=== PATIENT | female | born 1955 | race Caucasian/White ===

== ENCOUNTER → 2017-01-29 | Outpatient (CLI) | payer OTHER ==
--- NOTE | 2017-01-29 09:26 | WWHP ---
DATE OF SERVICE: 01/29/2017 CHIEF COMPLAINT: The patient is here for her routine gynecologic exam and mammogram. HPI: This is a 61-year-old, G2, P2 with an LMP of 1993 and she is status post DIAMOND for benign reasons. The patient is without gynecologic complaints. PAST MEDICAL HISTORY: COPD and osteopenia. MEDICATIONS: 1. Spiriva inhalers daily. 2. Symbicort inhaler daily. 3. Xopenex generic inhaler p.r.n. 4. Calcium supplement b.i.d. 5. Multivitamin daily. ALLERGIES: No known drug allergies. Past surgical history is unchanged from the 2015 H&P. 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 SOCIAL HISTORY: She quit smoking in 1998 and she rarely drinks alcohol. She denies drug use. 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 REVIEW OF SYSTEMS: She gained 7 pounds over the last year. She denies respiratory or cardiac problems. GI: She has been having some problems with her gallbladder and is going to be seeing Dr. Shipley in the near future for this. PHYSICAL EXAM: Blood pressure 132/83. Height 5 feet 6-1/2 inches. Weight 163 pounds. Temperature 97.8, pulse 80. This is a well-developed, well-nourished white female who is alert and oriented x3 in no acute distress. HEENT is within normal limits. NECK: Supple without mass or thyromegaly. CHEST AND LUNGS: Clear to auscultation. HEART: Regular rate and rhythm. Breasts are without mass or discharge. Axillary exam is negative for adenopathy. BACK: Negative for CVA tenderness. ABDOMEN: Soft, nontender, without palpable masses. PELVIC EXAM: External genitalia reveals mild atrophy without lesions. Vagina reveals mild atrophy without lesions. There is no evidence of prolapse. Bimanual exam is negative for mass or tenderness. Rectovaginal exam is negative for mass or tenderness and is negative for occult blood. EXTREMITIES: Nontender. IMPRESSION: A 61-year-old menopausal female, status post total abdominal hysterectomy for benign reasons with normal gynecologic exam. PLAN: 1. Pap smears have been discontinued. 2. Self breast examination was discussed. 3. Mammogram will be done today. 4. Osteoporosis prevention was discussed. We will plan on repeating a bone density testing next year. 5. She is due for colonoscopy and she states she will talk to Dr. Shipley about this. 6. She will return in one year.
--- NOTE | 2017-01-30 09:56 | MM ---
Reason for exam: screening (asymptomatic). Last mammogram was performed 1 year ago. History: Patient is postmenopausal. Family history of premenopausal breast cancer in mother and breast cancer in aunt. Benign core biopsy, September 15, 1997. Benign stereotactic core biopsy of the left breast, September 15, 1997. Physical Findings: A clinical breast exam by your physician is recommended on an annual basis and results should be correlated with mammographic findings. MG Screening Mammo w CAD Bilateral CC and MLO view(s) were taken. Prior study comparison: January 16, 2016, bilateral MG 3d screening mammo w/cad. January 03, 2015, bilateral MG screening mammo w CAD. There are scattered fibroglandular densities. There is no discrete abnormality. No significant changes when compared with prior studies. ASSESSMENT: Negative, BI-RAD 1 RECOMMENDATION: Routine screening mammogram of both breasts in 1 year.
== END | disposition home or self-care (01) ==
LOC: WWCWWP 07:48
PROVIDERS: ATTEND Obstetrics & Gynecology
DX: Z12.31 Encounter for screening mammogram for malignant neoplasm of breast (principal)

== ENCOUNTER → 2017-02-14 | Outpatient (CLI) | payer OTHER ==
--- NOTE | 2017-02-14 09:07 | NM ---
EXAMINATION TYPE: NM hepatobiliary w EF DATE OF EXAM: 02/14/2017 COMPARISON: NONE HISTORY: Calculus of gallbladder per order. Epigastric pain with diminished appetite, heartburn, and reflux-like symptoms. TECHNIQUE: After the intravenous administration of 5.5 mCi Tc 99m Mebrofenin hepatobiliary scintigrap hy is performed. Immediate images post injection. FINDINGS: There is satisfactory initial accumulation of tracer by the liver. The gallbladder is visualized wit hin 40 minutes. The small bowel activity is noted within 30 minutes. At one hour 8 ounces of oral e nsure plus is given to mimic CCK and gallbladder ejection fraction is calculated at 81 %, not deviate d from the normal range. Therefore there is no scintigraphic evidence of cystic or common bile duct obstruction to suggest acute cholecystitis or gallbladder dyskinesia. IMPRESSION: Exam is within normal limits.
== END | disposition home or self-care (01) ==
LOC: RADNMMAIN 06:40
PROVIDERS: ATTEND Family Medicine
DX: K80.20 Calculus of gallbladder without cholecystitis without obstruction (principal)
CPT/HCPCS: 78226; A9537

== ENCOUNTER → 2017-03-21 | Outpatient (CLI) | payer OTHER ==
[2017-03-21 10:14] LABS: CH 31.3; HCT 40.9 % (34.0-46.0); HDW 2.84; HGB 14.9 gm/dL (11.4-16.0); MCH 32.7 pg (25.0-35.0); MCHC 36.4 g/dL (31.0-37.0); MCV 89.9 fL (80.0-100.0); Mean Platelet Volume 6.8; RBC 4.54 m/uL (3.80-5.40); RDW 13.5 % (11.5-15.5); WBC 5.9 k/uL (3.8-10.6)
[2017-03-21 10:48] LABS: ALT 32 U/L (9-52); AST 45 U/L (14-36); Alkaline Phosphatase 63 U/L (38-126); Anion Gap 13 mmol/L; Blood Urea Nitrogen 10 mg/dL (7-17); Calcium 9.6 mg/dL (8.4-10.2); Carbon Dioxide 23 mmol/L (22-30); Chloride 106 mmol/L (98-107); Glucose 76 mg/dL (74-99); Non-African American GFR(MDRD) >60 (>60 ml/min/1.73 sqM); Potassium 4.5 mmol/L (3.5-5.1); Sodium 142 mmol/L (137-145); Total Bilirubin 0.7 mg/dL (0.2-1.3); Total Protein 6.6 g/dL (6.3-8.2)
== END | disposition home or self-care (01) ==
LOC: LABWHC1 08:32
PROVIDERS: ATTEND Surgery
DX: K80.10 Calculus of gallbladder with chronic cholecystitis without obstruction (principal)
CPT/HCPCS: 36415; 80053; 85027

== ENCOUNTER 2017-04-11 08:49 | Day surgery (SDC) | payer OTHER ==
--- NOTE | 2017-03-21 13:42 | P.GSHP ---
History of Present Illness H&P Date: 03/21/17 Chief Complaint: Chronic cholecystitis Patient seen in the office on 03/19. The patient has had complaints of right upper quadrant pain. She was seen in the emergency department in [place]. She was found to have gallstones. Pain was associated with lightheadedness, diaphoresis, nausea, and decreased appetite. Her symptoms are improved at this time. Labs from that ER visit are not available to me at this time. She states that she had a negative stress test at that time. Past Medical History Additional Past Medical History / Comment(s): varicose veins, arthritis, Anterior left Hip Past Anesthesia/Blood Transfusion Reactions: No Reported Reaction Medications and Allergies Home Medications Medication Instructions Recorded Confirmed Type Tiotropium [place] [Spiriva] 1 cap IH DAILY 10/25/14 10/25/14 History Warfarin [Coumadin] 7.5 mg PO ONCE 10/25/14 10/25/14 History Allergies Allergy/AdvReac Type Severity Reaction Status Date / Time No Known Allergies Allergy Verified 10/25/14 12:27 Surgical - Exam Physical exam: General: Well-developed, well-nourished HEENT: Normocephalic, sclerae nonicteric Abdomen: Nontender, nondistended Extremities: No edema Neuro: Alert and oriented Assessment and Plan (1) Chronic cholecystitis Narrative/Plan: Clinical scenario discussed with the patient. Suspect biliary colic as the etiology for her acute onset upper abdominal pain. We'll proceed with laparoscopic possible open cholecystectomy on 04/11. Risks of bleeding, infection , biloma, bile duct injury, conversion to an open procedure, postoperative diarrhea and pain were discussed. She understands and wishes to proceed. Status: Acute
[2017-04-07 13:58] VITALS: BMI 24.3
[~2017-04-11 08:49] MED LIST: DEXAMETHASONE SOD PHOSPHATE 10 MG/ML 1 ML VIAL IV ONE; HEPARIN SODIUM,PORCINE 5,000 UNIT/ML 1 ML VIAL SQ ONE; LACTATED RINGERS 1,000 ML IV SCH; LIDOCAINE 1% 20 ML VIAL (10MG/ML) FOR IV START INTRADERMA PRN; SCOPOLAMINE 1.5MG/72HR PATCH TRANSDERM ONE; ceFAZolin 2 GM in SODIUM CHLORIDE 0.9% 100 ML IVPB ONE
[2017-04-11 09:08] VITALS: RESP 16
[2017-04-11] MEDS: ONDANSETRON 4 MG/2 ML VIAL IVP ONE ×2 (09:26→11:28)
[2017-04-11] MEDS ORDERED: MIDAZOLAM 2 MG/2 ML VIAL IVP ONE (09:39)
[2017-04-11] MEDS ORDERED: BUPIVACAINE (PF) 0.25% 30 ML VIAL SQ ONE ×2 (10:13→10:40)
[2017-04-11] MEDS ORDERED: LIDOCAINE 1% INJ 10MG/ML (20 ML MDV) ONE (10:22)
[2017-04-11] MEDS ORDERED: NEOSTIGMINE 1 MG/ML 10 ML VIAL ONE (10:22)
[2017-04-11] MEDS ORDERED: PROPOFOL 10 MG/ML 20 ML VIAL IV ONE (10:22)
[2017-04-11] MEDS ORDERED: MIDAZOLAM 2 MG/2 ML VIAL ONE (10:22)
[2017-04-11] MEDS ORDERED: GLYCOPYRROLATE 0.2 MG/ML 2 ML VIAL ONE (10:22)
[2017-04-11] MEDS ORDERED: SUCCINYLCHOLINE CHLORIDE 100 MG/5 ML SYR IV ONE (10:22)
[2017-04-11] MEDS ORDERED: ROCURONIUM BROMIDE 10 MG/ML 10 ML VIAL IV ONE (10:22)
[2017-04-11] MEDS ORDERED: fentaNYL (PF) 50 MCG/ML 2 ML AMP ONE (10:22)
[2017-04-11] MEDS ORDERED: HYDROmorphone 1 MG/ML 1 ML SYRINGE IVP PRN (11:17)
[2017-04-11] MEDS ORDERED: NALOXONE 0.4 MG/ML 1 ML VIAL IV PRN (11:17)
[2017-04-11] MEDS ORDERED: HYDROcodone/APAP 5-325MG 1 EACH TAB PO PRN (11:17)
--- NOTE | 2017-04-11 11:19 | P.PCN ---
Date of Procedure: 04/11/17 Preoperative Diagnosis: Postoperative Diagnosis: Procedure(s) Performed: PREOPERATIVE DIAGNOSIS: Chronic cholecystitis POSTOPERATIVE DIAGNOSIS: Same PROCEDURE: Laparoscopic cholecystectomy SURGEON: Violetta EBL: Minimal see anesthesia record ANESTHESIA: Gen. COMPLICATIONS: None OPERATIVE PROCEDURE: The patient was brought and placed on the operating room table in the supine position. The patient was placed under general anesthesia at that time. The abdomen was prepped and draped in the usual sterile fashion. A small vertical infraumbilical incision was made. The fascia was grasped with the Ayad forceps. The fascia was retracted anteriorly. The Veress needle was advanced into the peritoneal cavity. The saline drop test was normal. Insufflation took place up to 15 mmHg. A 5 mm optical trocar was advanced and the peritoneal cavity. 2 additional 5 mm trochars were placed in the right upper quadrant under direct visualization. A 10 mm trocar was advanced into the epigastric incision site. The gallbladder was retracted superiorly and laterally. The peritoneum overlying the infundibulum was bluntly dissected. The patient's cystic duct was visualized. The junction between the cystic duct common and hepatic duct was identified. The cystic duct was then divided after placement of 3 10 mm clips on the patient's side and one on the specimen side. The cystic artery was identified and clipped as well. A small vessel was seen along the gallbladder fossa and clipped as well. The gallbladder was then removed from the liver bed using electrocautery. The gallbladder was then removed from the epigastric trocar site with an Endo Catch bag. The gallbladder fossa was irrigated with saline. There was no evidence of any bleeding or biliary drainage seen. The trochars were then removed. The fascia at the 10 millimeter site was closed using a figure-of- eight 0 Vicryl stitch with the SalbadorWilbert. The skin at all 4 sites was closed using a 4-0 Monocryl stitch. At the end of this procedure the sponge and needle counts were correct. DISPOSITION: Stable to the recovery room Implants: Indications for Procedure: Operative Findings: Description of Procedure:
[2017-04-11] MEDS: HYDROmorphone 1 MG/ML 1 ML SYRINGE IVP PRN ×2 (11:38→11:46)
[2017-04-11 11:39] VITALS: TEMP 97.4
[2017-04-11] MEDS ORDERED: ALBUTEROL NEBULIZED 2.5 MG/3 ML INHALATION STA (13:02)
[2017-04-11] MEDS ORDERED: HYDROcodone/APAP 5-325MG 1 EACH TAB PO ONE (13:18)
[2017-04-11] MEDS ORDERED: LACTATED RINGERS 1,000 ML IV ONE (14:05)
[2017-04-11 15:13] VITALS: BP 146/76; PULSE 70
== END 2017-04-11 16:27 | disposition home or self-care (01) ==
LOC: OR 08:49
PROVIDERS: ATTEND Surgery
DX: K80.10 Calculus of gallbladder with chronic cholecystitis without obstruction (principal); I83.90 Asymptomatic varicose veins of unspecified lower extremity; Z79.01 Long term (current) use of anticoagulants; Z79.899 Other long term (current) drug therapy; J45.909 Unspecified asthma, uncomplicated; J44.9 Chronic obstructive pulmonary disease, unspecified; Z87.891 Personal history of nicotine dependence; Z79.51 Long term (current) use of inhaled steroids
CPT/HCPCS: 88304; 47562; J2250; J1644; J1100; J2710; J0690; J2405; J2001; J3010; J1170; J0330; J2704

== ENCOUNTER 2017-09-19 10:16 | Day surgery (SDC) | payer OTHER ==
[2017-09-17 12:48] VITALS: BMI 23.5
[~2017-09-19 10:16] MED LIST changes: -DEXAMETHASONE SOD PHOSPHATE 10 MG/ML 1 ML VIAL IV ONE; -HEPARIN SODIUM,PORCINE 5,000 UNIT/ML 1 ML VIAL SQ ONE; -LIDOCAINE 1% 20 ML VIAL (10MG/ML) FOR IV START INTRADERMA PRN; -SCOPOLAMINE 1.5MG/72HR PATCH TRANSDERM ONE; -ceFAZolin 2 GM in SODIUM CHLORIDE 0.9% 100 ML IVPB ONE
[2017-09-19 12:07] VITALS: RESP 16; TEMP 97.3
[2017-09-19] MEDS ORDERED: LIDOCAINE 1% 20 ML VIAL (10MG/ML) FOR IV START INTRADERMA ONE (12:22)
[2017-09-19] MEDS ORDERED: PROPOFOL 10 MG/ML 20 ML VIAL IV ONE (12:48)
[2017-09-19] MEDS ORDERED: MIDAZOLAM 2 MG/2 ML VIAL ONE (12:48)
[2017-09-19] MEDS ORDERED: fentaNYL (PF) 50 MCG/ML 2 ML AMP ONE (12:48)
--- NOTE | 2017-09-19 13:10 | P.PCN ---
Date of Procedure: 09/19/17 Procedure(s) Performed: BRIEF HISTORY: Patient is a 61-year-old pleasant white female, scheduled for an elective colonoscopy as a part of screening for colorectal neoplasia. Last colonoscopy was 10 years ago. PROCEDURE PERFORMED: Colonoscopy with snare polypectomy. PREOPERATIVE DIAGNOSIS: Screening for colon cancer. IV sedation per Anesthesia. PROCEDURE: After informed consent was obtained, the patient, was brought into the endoscopy unit. IV sedation was administered by Anesthesia under continuous monitoring. Digital rectal examination was normal. Initially the Olympus CF- 160 flexible video colonoscope was then inserted in the rectum, gradually advanced into the cecum without any difficulty. Careful examination was performed as the scope was gradually being withdrawn. Ileocecal valve and the appendiceal orifice were visualized and appeared normal. Prep was excellent. Mucosa of the cecum, appeared normal. In the ascending colon there was a 5 mL polyp that was removed by snare polypectomy. In the descending colon there were 2 polyps measuring 5 mm and 7 mm in size both of which were removed by snare polypectomy. The rest of the ascending colon, transverse colon, descending colon, sigmoid colon, and rectum appeared normal. In the rectum there was a 5 mL polyp that was removed by snare polypectomy. Scattered left- sided diverticulosis seen. Retroflexion was performed in the rectum and no lesions were seen. The patient tolerated the procedure well. IMPRESSION: 5 mm ascending colon polyp serous was snare polypectomy 5 mm 2 descending colon polyp status post polypectomy 5 mm rectal polyp status post polypectomy Scattered sigmoid diverticulosis. RECOMMENDATIONS: Findings of this examination were discussed with the patient as well as a family. She was advised to follow with the biopsy results. If the biopsy shows a tubular adenoma, she can have a repeat colonoscopy in 3 years..
[2017-09-19 13:51] VITALS: BP 120/66; PULSE 74
== END 2017-09-19 14:05 | disposition home or self-care (01) ==
LOC: ORWHC2ENDO 10:16
PROVIDERS: ATTEND Internal Medicine Gastroenterology
DX: Z12.11 Encounter for screening for malignant neoplasm of colon (principal); D12.4 Benign neoplasm of descending colon; D12.8 Benign neoplasm of rectum; K63.5 Polyp of colon; K57.30 Diverticulosis of large intestine without perforation or abscess without bleeding; J44.9 Chronic obstructive pulmonary disease, unspecified; Z79.899 Other long term (current) drug therapy; Z79.51 Long term (current) use of inhaled steroids
CPT/HCPCS: 88305; 45385; J2250; J3010; J2704

== ENCOUNTER → 2018-02-17 | Outpatient (CLI) | payer OTHER ==
[2018-02-17 14:46] VITALS: BP 134/75; PULSE 64; TEMP 98.1; BMI 25.0
--- NOTE | 2018-02-17 15:15 | P.HPOB ---
History of Present Illness H&P Date: 02/17/18 Chief Complaint: The patient is here for her routine gynecologic exam and mammogram. This is a 62-year-old with an LMP of 1993. She is status post DIAMOND for benign reasons. The patient is without gynecologic complaints. Review of Systems The patient has lost 8 pounds over the last year. She denies respiratory, cardiac, or G.I. problems. Past Medical History Past Medical History: COPD Additional Past Medical History / Comment(s): Varicose veins, arthritis, nodule on rt lung. Osteopenia. 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 History of Any Multi-Drug Resistant Organisms: None Reported Past Surgical History: Appendectomy, Section (Times 2), Hysterectomy ( DIAMOND with bilateral salpingectomy in 1993), Joint Replacement (Left hip), Orthopedic Surgery (Arthroscopic knee, and shoulder surgery), Tonsillectomy Additional Past Surgical History / Comment(s): Partial Hysterectomy, L hip anterior replacement. Colonoscopy 2006. Past Anesthesia/Blood Transfusion Reactions: No Reported Reaction Additional Past Anesthesia/Blood Transfusion Reaction / Comment(s): States BP dropped with last surgery. Past Psychological History: No Psychological Hx Reported Smoking Status: Former smoker (Quit 1998) Past Alcohol Use History: Rare Additional Past Alcohol Use History / Comment(s): Quit 1998,started smoking at age 13,2ppd Past Drug Use History: None Reported Additional History: She has been since 1983. 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 - Past Family History Mother Family Medical History: Cancer (Breast and lung) Additional Family Medical History / Comment(s): Mother's twin sister had breast cancer Medications and Allergies Home Medications Medication Instructions Recorded Confirmed Type Tiotropium [place] [Spiriva] 1 cap INHALATION DAILY 10/25/14 09/19/17 History Albuterol Inhaler [Ventolin Hfa 1 - 2 puff INHALATION Q6HR PRN 04/07/17 History Inhaler] Budesonide-Formot 160-4.5 Mcg 2 puff INHALATION BID 04/07/17 02/17/18 History [Symbicort 160-4.5 Mcg Inhaler] Multivit with Calcium,Iron,Min 1 each PO DAILY 04/07/17 02/17/18 History [Women's Multivitamin] Allergies Allergy/AdvReac Type Severity Reaction Status Date / Time No Known Allergies Allergy Verified 02/17/18 14:41 Exam - Vital Signs Vital signs: Vital Signs Temp Pulse BP 02/17/18 14:41 98.1 F 64 134/75 Intake and Output 02/17/18 02/17/18 02/17/18 06:59 14:59 22:59 Other: Weight 70.307 kg Height 5'6", BMI 25.0. This is a well-developed well-nourished white female who is alert and oriented times 3 in no acute distress. HEENT: Within normal limits. NECK: Supple without mass or thyromegaly. CHEST AND LUNGS: Clear to auscultation. HEART: Regular rate and rhythm. BREASTS: Are without mass or discharge. AXILLARY EXAM: Negative for adenopathy. BACK: Negative for CVA tenderness. ABDOMEN: Soft, nontender, without palpable masses. PELVIC EXAM: External genitalia appears normal with moderate atrophy. Vagina appears normal with mild to moderate atrophy. There is no evidence of prolapse. Bimanual examination is negative for mass or tenderness. RECTAL EXAM: Rectovaginal exam is negative for mass or tenderness and is negative for occult blood. EXTREMITIES: Nontender. IMPRESSION: 1. 62-year-old menopausal female status post DIAMOND for benign reasons with normal gynecologic exam. 2. History of osteopenia PLAN: 1. Pap smears have been discontinued. 2. Self breast awareness was discussed. 3. Screening mammogram will be done today. 4. Osteoporosis prevention was discussed. Bone density testing will be done today. 5. She will return in one year.
--- NOTE | 2018-02-17 15:52 | BD ---
EXAMINATION TYPE: Axial Bone Density DATE OF EXAM: 02/17/2018 COMPARISON: NONE CLINICAL HISTORY: Postmenopausal female Height: 5 FT 5 1/2 IN Weight: 153 FRAX RISK QUESTIONS: Glucocorticoids (More than 3mos): YES (Ex: prednisone, prednisolone, methylprednisolone, dexamethasone, and hydrocortisone). Secondary Osteoporosis: 3. Menopause before 45: NO RISK FACTORS HISTORY OF: Surgery to Spine/Hip(right/left)/Wrist (right/left): LT HIP REPLACEMENT When: 2014 Active: YES Postmenopausal woman: PART HYST AGE 38 Lost more than 2 inches in height since high school: YES MEDICATIONS: Prednisone or other steroids: COPD How Lon-4 YEARS Additional Medications: Additional History: INHALERS FOR COPD EXAM MEASUREMENTS: Bone mineral densitometry was performed using the [employer] System. Bone mineral density as measured about the Lumbar spine is: ----- L1-L4(G/cm2): 1.296 T Score Values are as follows: ----- L2: 1.2 ----- L3: 1.9 ----- L4: 0.7 ----- L1-L4: 1.0 Bone mineral density has: INCREASED 0.8 SINCE 2014 Bone mineral density about the R hip (g/cm2): 0.939 -----R Neck: -0.7 -----R Total: -1.6 Bone mineral density has: DECREASED -5.3 SINCE 2014 IMPRESSION: Osteopenia (T Score between -2.5 and -1). There is slightly increased risk of fracture and the patient may be considered for treatment. Re-Screen 2-5 years. NOTE: T-SCORE=SD OF THE YOUNG ADULT MEAN.
--- NOTE | 2018-02-19 11:55 | MM ---
Reason for exam: screening (asymptomatic). Last mammogram was performed 1 year and 1 month ago. History: Patient is postmenopausal. Family history of premenopausal breast cancer in mother and breast cancer in aunt. Benign core biopsy, September 15, 1997. Benign stereotactic core biopsy of the left breast, September 15, 1997. Physical Findings: A clinical breast exam by your physician is recommended on an annual basis and results should be correlated with mammographic findings. MG Screening Mammo w CAD Bilateral CC and MLO view(s) were taken. Prior study comparison: January 29, 2017, bilateral MG screening mammo w CAD. January 16, 2016, bilateral MG 3d screening mammo w/cad. There are scattered fibroglandular densities. There is no discrete abnormality. ASSESSMENT: Negative, BI-RAD 1 RECOMMENDATION: Routine screening mammogram of both breasts in 1 year.
--- NOTE | 2018-02-24 09:37 | P.PN ---
Progress Note - Text Progress Note Date: 02/24/18 OUTPATIENT FOLLOW-UP NOTE TEST(S)/RESULTS: test results from 02/17/2018 include benign mammogram and bone density testing showing osteopenia. METHOD OF NOTIFICATION: the patient was notified by phone. PATIENT COMMENTS: the patient understands these results. DIAGNOSIS: osteopenia and benign mammogram. DISCUSSION: a handout was already given patient adequate calcium, vitamin D and regular exercise. PLAN: bone density test will be repeated in 3 years. She will return for her annual exam in one year.
== END | disposition home or self-care (01) ==
LOC: WWCWWP 13:49
PROVIDERS: ATTEND Obstetrics & Gynecology
DX: Z12.31 Encounter for screening mammogram for malignant neoplasm of breast (principal); M85.89 Other specified disorders of bone density and structure, multiple sites; Z78.0 Asymptomatic menopausal state
CPT/HCPCS: 77067; 77080

== ENCOUNTER 2018-08-20 18:36 | Observation (INO) | payer OTHER ==
[2018-08-20] MEDS ORDERED: NITROGLYCERIN OINT 1 INCH/GM PACKET TOPICAL STA (18:54)
[2018-08-20] MEDS ORDERED: NITROGLYCERIN SL TABS 0.4 MG TAB SUBLINGUAL STA (18:54)
--- NOTE | 2018-08-20 19:04 | ED ---
General Adult HPI - General Chief complaint: Chest Pain Stated complaint: CHEST PAIN Time Seen by Provider: 08/20/18 18:40 Source: EMS, RN notes reviewed Mode of arrival: EMS Limitations: no limitations - History of Present Illness Initial comments: This is a 62-year-old female with past medical history of COPD. Patient comes emergency Department because she has a 2 hour history of chest pain which goes completely from left to) patient states when she had that she was more short of breath and diaphoretic per patient states when she went to take off approximately it was soaking wet. Patient states the pain is subsided a little bit it's more on the right than the left currently. Patient denies any nausea or vomiting. Patient denies any recent fever chills or cough. Patient states she has no history of diabetes hypertension high cholesterol. Patient denies any family history of heart disease. Patient denies any abdominal pain she's had her gallbladder out in the past. Patient denies any nausea vomiting diarrhea. Patient denies any back pain. Patient denies any lightheadedness dizziness or near syncopal episode. Patient received aspirin and was on the way here but did not get any nitroglycerin. - Related Data Home Medications Medication Instructions Recorded Confirmed Tiotropium [place] [Spiriva] 1 cap INHALATION RT-DAILY 10/25/14 08/20/18 Budesonide-Formot 160-4.5 Mcg 2 puff INHALATION RT-BID 04/07/17 08/20/18 [Symbicort 160-4.5 Mcg Inhaler] Multivit with Calcium,Iron,Min 1 tab PO DAILY 04/07/17 08/20/18 [Women's Multivitamin] Calcium Carbonate [Calcium] 600 mg PO BID 08/20/18 08/20/18 Ibuprofen [Motrin] 800 mg PO Q8H PRN 08/20/18 08/20/18 Levalbuterol Tartrate [Xopenex Hfa 1 - 2 puff INHALATION RT-QID PRN 08/20/18 Inhaler] Vitamin D3(Unknown Dose) 1 tab PO DAILY 08/20/18 08/20/18 Previous Rx's Medication Instructions Recorded Aspirin 81 mg PO DAILY #1 chewable 08/21/18 Nitroglycerin Sl Tabs [Nitrostat] 0.4 mg SUBLINGUAL Q5M PRN #25 tab 08/21/18 Allergies Allergy/AdvReac Type Severity Reaction Status Date / Time No Known Allergies Allergy Verified 08/20/18 19:18 Review of Systems ROS Statement: Those systems with pertinent positive or pertinent negative responses have been documented in the HPI. ROS Other: All systems not noted in ROS Statement are negative. Past Medical History Past Medical History: COPD Additional Past Medical History / Comment(s): Varicose veins, arthritis, nodule on rt lung. Osteopenia. 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 History of Any Multi-Drug Resistant Organisms: None Reported Past Surgical History: Appendectomy, Section, Cholecystectomy, Hysterectomy, Joint Replacement, Orthopedic Surgery, Tonsillectomy Additional Past Surgical History / Comment(s): Partial Hysterectomy, L hip anterior replacement. Colonoscopy 2006. Past Anesthesia/Blood Transfusion Reactions: No Reported Reaction Additional Past Anesthesia/Blood Transfusion Reaction / Comment(s): States BP dropped with last surgery. Past Psychological History: No Psychological Hx Reported Smoking Status: Former smoker Past Alcohol Use History: Rare Past Drug Use History: None Reported - Past Family History Mother Family Medical History: Cancer (Breast and lung) Additional Family Medical History / Comment(s): Mother's twin sister had breast cancer General Exam - General Exam Comments Initial Comments: GENERAL: Patient is well-developed and well-nourished. Patient is nontoxic and well- hydrated and is in mild distress. ENT: Neck is soft and supple. No significant lymphadenopathy is noted. Oropharynx is clear. Moist mucous membranes. Neck has full range of motion without eliciting any pain. EYES: The sclera were anicteric and conjunctiva were pink and moist. Extraocular movements were intact and pupils were equal round and reactive to light. Eyelids were unremarkable. PULMONARY: Unlabored respirations. Good breath sounds bilaterally. No audible rales rhonchi or wheezing was noted. CARDIOVASCULAR: There is a regular rate and rhythm without any murmurs gallops or rubs. ABDOMEN: Soft and nontender with normal bowel sounds. No palpable organomegaly was noted. There is no palpable pulsatile mass. SKIN: Skin is clear with no lesions or rashes and otherwise unremarkable. NEUROLOGIC: Patient is alert and oriented x3. Cranial nerves II through XII are grossly intact. Motor and sensory are also intact. Normal speech, volume and content. Symmetrical smile. MUSCULOSKELETAL: Normal extremities with adequate strength and full range of motion. No lower extremity swelling or edema. No calf tenderness. LYMPHATICS: No significant lymphadenopathy is noted PSYCHIATRIC: Normal psychiatric evaluation. Limitations: no limitations Course Vital Signs 08/20/18 08/20/18 08/20/18 18:38 19:16 19:22 Temperature 97.8 F Pulse Rate 73 75 92 Respiratory 18 18 18 Rate Blood Pressure 179/78 166/81 145/86 O2 Sat by Pulse 98 99 95 Oximetry Medical Decision Making - Medical Decision Making EKG shows normal sinus rhythm at 73 bpm WI interval is on 48 QRSs 86 QT interval 398 QTC is 438. Patient's EKG shows no ST segment elevation or depression or T wave abnormalities are noted. - Lab Data Result diagrams: 08/20/18 19:05 08/20/18 19:05 Lab Results 08/20/18 08/20/18 08/20/18 Range/Units 19:05 19:05 19:05 WBC 8.3 (3.8-10.6) k/uL RBC 4.44 (3.80-5.40) m/uL Hgb 13.9 (11.4-16.0) gm/dL Hct 39.7 (34.0-46.0) % MCV 89.4 (80.0-100.0) fL MCH 31.4 (25.0-35.0) pg MCHC 35.1 (31.0-37.0) g/dL RDW 13.0 (11.5-15.5) % Plt Count 247 (150-450) k/uL Neutrophils % 65 % Lymphocytes % 25 % Monocytes % 5 % Eosinophils % 3 % Basophils % 0 % Neutrophils # 5.4 (1.3-7.7) k/uL Lymphocytes # 2.1 (1.0-4.8) k/uL Monocytes # 0.4 (0-1.0) k/uL Eosinophils # 0.3 (0-0.7) k/uL Basophils # 0.0 (0-0.2) k/uL PT (9.0-12.0) sec INR (<1.2) APTT (22.0-30.0) sec D-Dimer (<0.60) mg/L FEU Sodium 134 L (137-145) mmol/L Potassium 4.0 (3.5-5.1) mmol/L Chloride 101 (98-107) mmol/L Carbon Dioxide 24 (22-30) mmol/L Anion Gap 9 mmol/L BUN 13 (7-17) mg/dL Creatinine 0.63 (0.52-1.04) mg/dL Est GFR (CKD-EPI)AfAm >90 (>60 ml/min/1.73 sqM) Est GFR (CKD-EPI)NonAf >90 (>60 ml/min/1.73 sqM) Glucose 93 (74-99) mg/dL Calcium 9.7 (8.4-10.2) mg/dL Magnesium 2.0 (1.6-2.3) mg/dL Total Bilirubin 0.3 (0.2-1.3) mg/dL AST 74 H (14-36) U/L ALT 42 (9-52) U/L Alkaline Phosphatase 69 (38-126) U/L Total Creatine Kinase 54 (30-135) U/L CK-MB (CK-2) 0.8 (0.0-2.4) ng/mL CK-MB (CK-2) Rel Index 1.5 Troponin I <0.012 (0.000-0.034) ng/mL NT-Pro-B Natriuret Pep pg/mL Total Protein 6.5 (6.3-8.2) g/dL Albumin 4.1 (3.5-5.0) g/dL Amylase 119 H (30-110) U/L Lipase 247 (23-300) U/L 08/20/18 08/20/18 Range/Units 19:05 19:05 WBC (3.8-10.6) k/uL RBC (3.80-5.40) m/uL Hgb (11.4-16.0) gm/dL Hct (34.0-46.0) % MCV (80.0-100.0) fL MCH (25.0-35.0) pg MCHC (31.0-37.0) g/dL RDW (11.5-15.5) % Plt Count (150-450) k/uL Neutrophils % % Lymphocytes % % Monocytes % % Eosinophils % % Basophils % % Neutrophils # (1.3-7.7) k/uL Lymphocytes # (1.0-4.8) k/uL Monocytes # (0-1.0) k/uL Eosinophils # (0-0.7) k/uL Basophils # (0-0.2) k/uL PT 9.6 (9.0-12.0) sec INR 0.9 (<1.2) APTT 22.0 (22.0-30.0) sec D-Dimer 0.41 (<0.60) mg/L FEU Sodium (137-145) mmol/L Potassium (3.5-5.1) mmol/L Chloride (98-107) mmol/L Carbon Dioxide (22-30) mmol/L Anion Gap mmol/L BUN (7-17) mg/dL Creatinine (0.52-1.04) mg/dL Est GFR (CKD-EPI)AfAm (>60 ml/min/1.73 sqM) Est GFR (CKD-EPI)NonAf (>60 ml/min/1.73 sqM) Glucose (74-99) mg/dL Calcium (8.4-10.2) mg/dL Magnesium (1.6-2.3) mg/dL Total Bilirubin (0.2-1.3) mg/dL AST (14-36) U/L ALT (9-52) U/L Alkaline Phosphatase (38-126) U/L Total Creatine Kinase (30-135) U/L CK-MB (CK-2) (0.0-2.4) ng/mL CK-MB (CK-2) Rel Index Troponin I (0.000-0.034) ng/mL NT-Pro-B Natriuret Pep 252 pg/mL Total Protein (6.3-8.2) g/dL Albumin (3.5-5.0) g/dL Amylase (30-110) U/L Lipase (23-300) U/L Disposition Clinical Impression: Chest pain Disposition: ADMITTED IP TO THIS HOSP
[2018-08-20 19:23] LABS: Basophils % (A) 0 %; Eosinophils # (A) 0.3 k/uL (0-0.7); Eosinophils % (A) 3 %; HCT 39.7 % (34.0-46.0); HGB 13.9 gm/dL (11.4-16.0); Lymphocytes # (A) 2.1 k/uL (1.0-4.8); Lymphocytes % (A) 25 %; MCH 31.4 pg (25.0-35.0); MCHC 35.1 g/dL (31.0-37.0); MCV 89.4 fL (80.0-100.0); Mean Platelet Volume 6.7; Monocytes # (A) 0.4 k/uL (0-1.0); Monocytes % (A) 5 %; Neutrophils # (A) 5.4 k/uL (1.3-7.7); Neutrophils % (A) 65 %; Platelet Count 247 k/uL (150-450); RBC 4.44 m/uL (3.80-5.40); WBC 8.3 k/uL (3.8-10.6)
[2018-08-20 19:32] LABS: ALT 42 U/L (9-52); AST 74 U/L (14-36); Albumin 4.1 g/dL (3.5-5.0); Alkaline Phosphatase 69 U/L (38-126); Amylase 119 U/L (30-110); Anion Gap 9 mmol/L; Blood Urea Nitrogen 13 mg/dL (7-17); Calcium 9.7 mg/dL (8.4-10.2); Carbon Dioxide 24 mmol/L (22-30); Chloride 101 mmol/L (98-107); Glucose 93 mg/dL (74-99); Lipase 247 U/L (23-300); Sodium 134 mmol/L (137-145); Total Bilirubin 0.3 mg/dL (0.2-1.3); Total Protein 6.5 g/dL (6.3-8.2)
[2018-08-20 19:35] LABS: D-Dimer 0.41 mg/L FEU (<0.60); INR 0.9 (<1.2); Prothrombin Time 9.6 sec (9.0-12.0)
--- NOTE | 2018-08-20 19:48 | XR ---
EXAMINATION TYPE: XR chest 2V DATE OF EXAM: 08/20/2018 COMPARISON: NONE HISTORY: Chest pain TECHNIQUE: Frontal and lateral views of the chest are obtained. FINDINGS: Heart and mediastinum are normal. Lungs are clear. Diaphragm is normal. Bony thorax is int act. Pulmonary vascularity is normal. IMPRESSION: Normal chest.
[2018-08-20 19:50] LABS: Creatine Kinase 54 U/L (30-135)
[2018-08-20 20:04] LABS: Creatine Kinase MB 0.8 ng/mL (0.0-2.4); Troponin I <0.012 ng/mL (0.000-0.034)
[2018-08-20] MEDS ORDERED: HEPARIN SOD,PORK IN 0.45% NACL 25,000 UNIT in 0.45% NACL 1 250ML.BAG IV SCH (21:30)
[2018-08-20] MEDS ORDERED: HEPARIN SODIUM,PORCINE 5,000 UNIT/ML 1 ML VIAL IV ONE (21:30)
[2018-08-21 01:26] VITALS: BMI 24.3
[2018-08-21 02:34] LABS: Creatine Kinase 41 U/L (30-135)
[2018-08-21 02:47] LABS: Creatine Kinase MB 0.6 ng/mL (0.0-2.4); Troponin I <0.012 ng/mL (0.000-0.034)
[2018-08-21 07:53] LABS: Creatine Kinase 33 U/L (30-135)
--- NOTE | 2018-08-21 07:58 | CONS ---
CONSULTATION Mrs. Louie is a 62-year-old female with no prior documented disease who presented with chest discomfort. She was going to have dinner with her [id number] when she started to complain of tightness across the chest and below her left breast and associated with some diaphoresis, but no dyspnea, dizziness or palpitation. Patient is quite active physically, has no exertional chest discomfort. Denies any history of myocardial infarction. She has no history of PND, orthopnea, or peripheral edema. No dizziness, palpitation, or syncope. She had remote history of stress testing that was unremarkable according to her. Her coronary risk factors are negative for hypertension, hyperlipidemia, or diabetes. She stopped smoking a long time ago. MEDICATION: At home include Spiriva, Xopenex, Motrin, calcium and Symbicort. REVIEW OF SYSTEMS: RESPIRATORY SYSTEM: She has history of mild chronic obstructive lung disease. GI SYSTEM: No recent GI bleed. No peptic ulcer disease. No nausea, no vomiting. SYSTEM: No dysuria or hematuria. NERVOUS SYSTEM: No history of stroke or seizure. PHYSICAL EXAMINATION: She is a 62-year-old female, alert, oriented, in no apparent distress. Blood pressure 140/60 with a heart rate in the 50s. HEAD: Normocephalic. EYES: Sclerae nonicteric. NECK: Good upstroke, no bruit, no venous distention. LUNGS: Clear to auscultation. HEART: Regular rate and rhythm. S1, S2. No S3. No S4. No murmur or rub. ABDOMEN: Soft, nontender. Positive bowel sounds, no organomegaly. EXTREMITIES: No edema, intact pulses. LAB DATA: Revealed troponin less than 0.012 for 2 samples. Amylase 119, lipase 247. BUN and creatinine 13 and 0.63. Hemoglobin is 13.9. EKG revealed a sinus mechanism, normal axis and intervals. Normal echocardiogram. Chest x-ray shows no acute infiltrate. IMPRESSION: 1. Chest discomfort, has atypical features for ischemic heart disease, probably noncardiac with mild elevation of her amylase. 2. History of mild chronic obstructive lung disease. RECOMMENDATION: I will stop the heparin nitrate. I will proceed with a stress echocardiogram. If there is no evidence of cardiac abnormalities, then no further cardiac workup will be needed. Thank you for this consult. Will follow with you. MMODL / IJN: [id number] /
[2018-08-21 08:07] LABS: Creatine Kinase MB 0.5 ng/mL (0.0-2.4); Troponin I <0.012 ng/mL (0.000-0.034)
[2018-08-21] MEDS ORDERED: ASPIRIN 325 MG TAB PO SCH (09:00)
[2018-08-21] MEDS ORDERED: ACETAMINOPHEN TAB 325 MG TAB PO STA (09:04)
[2018-08-21] MEDS ORDERED: SYMBICORT 160-4.5 MCG INHALER INHALATION SCH (11:05)
[2018-08-21] MEDS ORDERED: IBUPROFEN 800 MG TAB PO PRN (11:05)
[2018-08-21] MEDS ORDERED: CALCIUM CARBONATE 500 MG CHEWABLE PO SCH (11:15)
[2018-08-21] MEDS: IPRATROPIUM 0.5 MG/2.5 ML NEBU INHALATION SCH ×2 (12:06→15:16)
--- NOTE | 2018-08-21 12:28 | ECHOF ---
Referral Reason:cp MEASUREMENTS -------- HEIGHT: 165.1 cm WEIGHT: 68.5 kg BP: RVIDd: 3.2 cm (< 3.3) IVSd: 1.3 cm (0.6 - 1.1) LVIDd: 4.5 cm (3.9 - 5.3) LVPWd: 1.4 cm (0.6 - 1.1) IVSs: 1.5 cm LVIDs: 2.9 cm LVPWs: 1.6 cm LA Diam: 4.1 cm (2.7 - 3.8) LAESV Index (A-L): 33.15 ml/m Ao Diam: 2.7 cm (2.0 - 3.7) AV Cusp: 1.9 cm (1.5 - 2.6) LA Diam: 3.5 cm (2.7 - 3.8) MV EXCURSION: 13.189 mm (> 18.000) MV EF SLOPE: 45 mm/s (70 - 150) EPSS: 0.4 cm MV E Peewee: 0.59 m/s MV DecT: 293 ms MV A [place]: 0.92 m/s MV E/A Ratio: 0.64 AR PHT: 483 ms RAP: 5.00 mmHg RVSP: 32.51 mmHg FINDINGS -------- Sinus rhythm. This was a technically good study. The left ventricular size is normal. There is mild concentric left ventricular hypertrophy. Overa ll left ventricular systolic function is normal with, an EF between 55 - 60 %. The right ventricle is normal in size. LA is midly dilated 29-33ml/m2. The right atrial size is normal. The aortic valve is trileaflet and appears structurally normal. There is mild aortic regurgitation. The mitral valve is normal. Mild mitral regurgitation is present. Mild tricuspid regurgitation present. Right ventricular systolic pressure is normal at < 35 mmHg. The right ventricular systolic pressure, as measured by Doppler, is 32.51mmHg. Trace/mild (physiologic) pulmonic regurgitation. The aortic root size is normal. There is no pericardial effusion. CONCLUSIONS -------- 1. Sinus rhythm. 2. This was a technically good study. 3. The left ventricular size is normal. 4. There is mild concentric left ventricular hypertrophy. 5. Overall left ventricular systolic function is normal with, an EF between 55 - 60 %. 6. LA is midly dilated 29-33ml/m2. 7. There is mild aortic regurgitation. 8. Mild mitral regurgitation is present. 9. Mild tricuspid regurgitation present. 10. Right ventricular systolic pressure is normal at < 35 mmHg. 11. Trace/mild (physiologic) pulmonic regurgitation. 12. The aortic root size is normal. 13. There is no pericardial effusion. [employer] OFFICE MANAGER: Penny Pederson RDCS
--- NOTE | 2018-08-21 12:34 | ECHOS ---
STRESS ECHOCARDIOGRAM INDICATIONS: Chest pain. MEDICATIONS: None. BASELINE HEART RATE: 76 BASELINE BLOOD PRESSURE: 158/55 MAXIMUM HEART RATE: 139 MAXIMUM BLOOD PRESSURE: 194/68 85% MPHR: 133 100% MPHR: 156 METS: 8.1 MAXIMUM STAGE REACHED: 3 TOTAL EXERCISE TIME: 6:45 CLINICAL INFORMATION: Baseline rhythm is sinus mechanism rate of 76, normal axis and intervals, poor R-wave progression. Baseline blood pressure 158/55 mmHg. Patient exercised on Long protocol for 6 minutes 45 seconds reaching peak rate of 139 beats per minute which is equal to 89% maximum predicted heart rate. Peak blood pressure 194/68 mmHg. Test was terminated secondary to fatigue. There was no chest pain. Electrocardiographic monitoring revealed no evidence of diagnostic ischemic ST deviation, rare PVCs were noted. FINDINGS: Baseline echocardiogram revealed normal wall motion. At peak exercise, there was normal wall motion augmentation with no hypokinesis or dyskinesis. CONCLUSION: 1. Good exercise tolerance with normal electrocardiographic response to exercise and rare premature ventricular contractions. 2. Normal stress echocardiogram with no evidence of stress-induced ischemia. MMODL / IJN: [id number] /
[2018-08-21 15:27] VITALS: BP 127/69; PULSE 68; RESP 18; TEMP 98.3
--- NOTE | 2018-08-21 22:15 | DS ---
DISCHARGE SUMMARY HISTORY AND PHYSICAL/DISCHARGE SUMMARY: DATE OF ADMISSION: August 20, 2018. DATE OF DISCHARGE: August 21, 2018. PRESENTING COMPLAINT: Chest pressure. HISTORY OF PRESENTING COMPLAINT: This is a pleasant 62-year-old patient of Dr. Pop. Chronic stable medical conditions include COPD, varicose veins, osteoarthritis, sciatica. The patient yesterday got ready to go to her [id number]'s place. She was feeling a bit tight in the chest. Finally got to their house, started feeling tight all across and decided to go to the bedroom and lay down and tightness was noted across the chest. There was some perspiration. Some nausea and slightly breathing hard. There has been no swelling of the extremity. Finally decided to come down to the ER. Troponins were negative. No prior cardiac history. There was no wheezing per se. Admitted for the same. The pain did not radiate to the neck or arm. There is no fever and chills. No cough. REVIEW OF SYSTEMS: CONSTITUTIONAL: Tired. HEENT none. RESPIRATORY: As above. CARDIOVASCULAR as above. GASTROINTESTINAL none. GENITOURINARY none. MUSCULOSKELETAL: Arthritic pain in joints and sciatica on the right leg. DERMATOLOGICAL: Occasional bruising. HEMATOLOGICAL, LYMPHATICS: None. PSYCHIATRY: A bit anxious. NEUROLOGICAL: None. PAST MEDICAL HISTORY: COPD, varicose veins, osteoarthritis, sciatica on the right side. PAST SURGICAL HISTORY: Appendectomy, , cholecystectomy, hysterectomy, joint replacement, tonsillectomy, partial hysterectomy, left anterior hip replacement. SOCIAL HISTORY: Patient smoked about 20 years, 2 packs a day, stopped in 1998. Lives with her . Occasional alcohol. 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 FAMILY HISTORY: Cardiac disease negative. Mother's twin sister had breast cancer. HOME MEDICATIONS: 1. Vitamin D3 one tablet a day. 2. Spiriva 1 capsule daily. 3. Women's multivitamin 1 tablet p.o. daily. 4. Xopenex 1-2 puffs q.i.d. p.r.n. 5. Motrin 800 mg q.8h p.r.n. 6. Calcium 600 mg b.i.d. 7. Symbicort 160/4.5, 2 puffs b.i.d. 8. Nitrostat 0.4 sublingual q.5 p.r.n. ALLERGIES: None. PHYSICAL EXAMINATION: VITAL SIGNS: Temperature 96.1 pulse 68, respiratory rate 18, blood pressure 127/69, pulse ox 98% on room air. GENERAL APPEARANCE: Average built, sitting up, a bit tired-appearing. EYES: Pupils equal. Conjunctivae normal. HEENT: External appearance of nose and ears normal. Oral cavity normal. NECK: JVD not raised. Mass not palpable. RESPIRATORY: Effort normal. LUNGS: Slightly decreased breath sounds. CARDIOVASCULAR: 1st and 2nd sounds normal. No edema. ABDOMEN: Soft, nontender. Liver and spleen not palpable. LYMPHATICS: No lymph nodes palpable in the neck and axilla. PSYCHIATRY: Alert and oriented x3. Mood and affect slightly tired-appearing. NEUROLOGICAL: Pupils equal. Cranial nerves grossly intact. Power and sensation grossly intact. MUSCULOSKELETAL: Evidence of osteoarthritis especially in the hands, some early bruising. INVESTIGATIONS: White count 8.3, hemoglobin 13.9, potassium 4. BUN and creatinine is normal. Troponin times three less than 0.012. EKG personally reviewed by me shows normal sinus rhythm. Chest x-ray personally reviewed by me: No infiltrate. Also report was reviewed. Stress echocardiogram negative for ischemia. Echocardiogram no wall motion abnormality. ASSESSMENT: 1. This is a patient who presents with chest pressure with perspiration, some chest tightness, could have been angina, but the patient's stress test has come back negative. 2. Chronic obstructive pulmonary disease in an ex-smoker. 3. Primary osteoarthritis. PLAN: The patient was seen by Cardiology, Dr. Mohamud, did order 2D echo and echocardiogram. Troponins were negative. Stress echocardiogram came back to be negative. Had a lengthy talk with the patient and . Stress test negative, but I am sending the patient home on Nitro to see she how she does and also aspirin. Also told to return to the ER if pain was to recur and she will follow up with Dr. Mohamud in the office. She also has an appointment to follow up with Dr. Pop. Discharge medications same as home medication except aspirin 81 mg has been added and Nitrostat 0.4 sublingual q.5h is being added. DISPOSITION: Home. FOLLOWUP: Follow up with Dr. Pop in 3 days. Follow up with Dr. Mohamud in [address] Pop's. This is both a history physical and discharge summary. MMODL / IJN: [id number] /
== END 2018-08-21 16:21 | disposition home or self-care (01) ==
LOC: EC 18:36 → 1SOBS 21:50
PROVIDERS: ADMIT Hospitalist; ATTEND Hospitalist
DX: R07.89 Other chest pain (principal); R61 Generalized hyperhidrosis; J44.9 Chronic obstructive pulmonary disease, unspecified; M19.91 Primary osteoarthritis, unspecified site; I83.90 Asymptomatic varicose veins of unspecified lower extremity; M85.80 Other specified disorders of bone density and structure, unspecified site; R91.1 Solitary pulmonary nodule; R74.8 Abnormal levels of other serum enzymes; R11.0 Nausea; M54.31 Sciatica, right side; Z79.51 Long term (current) use of inhaled steroids; Z79.899 Other long term (current) drug therapy; Z90.49 Acquired absence of other specified parts of digestive tract; Z90.710 Acquired absence of both cervix and uterus; Z96.642 Presence of left artificial hip joint; Z87.891 Personal history of nicotine dependence; Z80.3 Family history of malignant neoplasm of breast; Z80.1 Family history of malignant neoplasm of trachea, bronchus and lung
CPT/HCPCS: 96365; 96366; 99285; 36415; 94640; 93005; 93306; 93351; 85379; 83880; 80053; 82150; 82550 ×2; 82553 ×2; 83690; 83735; 84484 ×2; 85025; 85610; 85730 ×2; 71046; G0378 ×2; J1644

== ENCOUNTER → 2019-03-30 | Outpatient (CLI) | payer OTHER ==
[2019-03-30 15:25] VITALS: BP 122/75; PULSE 60; RESP 16; TEMP 97.9; BMI 24.0
--- NOTE | 2019-03-30 16:26 | P.HPOB ---
History of Present Illness H&P Date: 03/30/19 Chief Complaint: The patient is here for her routine gynecologic exam and ma mmogram. This is a 63-year-old with an LMP of 1993. The patient is status post DIAMOND for benign reasons. The patient is complaining of vaginal dryness with sexual intercourse. She also was treated for 2 urinary tract infections since September. She is interested in trying the estrogen vaginal cream which she previously was prescribed, but did not use because of cost. She is otherwise without gynecologic complaints. Review of Systems The patient has lost 7 pounds over the last year. She denies respiratory, cardiac, or G.I. problems. Past Medical History Past Medical History: COPD Additional Past Medical History / Comment(s): Varicose veins, arthritis, nodule on rt lung. Osteopenia. AURIST history: she has no history of STDs. History of Any Multi-Drug Resistant Organisms: None Reported Past Surgical History: Appendectomy, Section, Cholecystectomy, Hysterectomy, Joint Replacement, Orthopedic Surgery, Tonsillectomy Additional Past Surgical History / Comment(s): DIAMOND BILATERAL SALPINGECTOMY (not oophorectomy)1993, L hip anterior replacement. Knee and shoulder surgery. Colonoscopy 2017(2nd, next 5 yrs). Past Anesthesia/Blood Transfusion Reactions: No Reported Reaction Additional Past Anesthesia/Blood Transfusion Reaction / Comment(s): States BP dropped with last surgery. Past Psychological History: No Psychological Hx Reported Smoking Status: Former smoker Past Alcohol Use History: Rare Additional Past Alcohol Use History / Comment(s): Quit 1998 smoking,started smoking at age 13,2ppd Past Drug Use History: None Reported Additional History: She has been since 1983. 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 - Past Family History Mother Family Medical History: Cancer Additional Family Medical History / Comment(s): Breast and lung cancer. Mother's twin sister had breast cancer Medications and Allergies Home Medications Medication Instructions Recorded Confirmed Type Tiotropium [place] [Spiriva] 1 cap INHALATION RT-DAILY 10/25/14 03/30/19 History Budesonide-Formot 160-4.5 Mcg 2 puff INHALATION RT-BID 04/07/17 03/30/19 History [Symbicort 160-4.5 Mcg Inhaler] Multivit with Calcium,Iron,Min 1 tab PO DAILY 04/07/17 03/30/19 History [Women's Multivitamin] Calcium Carbonate [Calcium] 600 mg PO BID 08/20/18 03/30/19 History Ibuprofen [Motrin] 800 mg PO Q8H PRN 08/20/18 03/30/19 History Levalbuterol Tartrate [Xopenex Hfa 1 - 2 puff INHALATION RT-QID PRN 08/20/18 03/30/19 History Inhaler] Vitamin D3(Unknown Dose) 1 tab PO DAILY 08/20/18 03/30/19 History Nitroglycerin Sl Tabs [Nitrostat] 0.4 mg SUBLINGUAL Q5M PRN #25 tab 08/21/18 03/30/19 Rx Allergies Allergy/AdvReac Type Severity Reaction Status Date / Time No Known Allergies Allergy Verified 03/30/19 15:25 Exam Vital Signs Temp Pulse Resp BP Pulse Ox 03/30/19 15:20 97.9 F 60 16 122/75 97 Intake and Output 03/30/19 03/30/19 03/30/19 06:59 14:59 22:59 Other: Weight 67.585 kg Height 5'6", weight 149 pounds, BMI 24.0. This is a well-developed well-nourished white female who is alert and oriented times 3 in no acute distress. HEENT: Within normal limits. NECK: Supple without mass or thyromegaly. CHEST AND LUNGS: Clear to auscultation. HEART: Regular rate and rhythm. BREASTS: Are without mass or discharge. AXILLARY EXAM: Negative for adenopathy. BACK: Negative for CVA tenderness. ABDOMEN: Soft, nontender, without palpable masses. PELVIC EXAM: External genitalia appears normal with mild atrophy. Vagina appears normal with mild atrophy. There is no evidence of prolapse. Bimanual examination is negative for mass or tenderness. RECTAL EXAM: Rectovaginal exam is negative for mass or tenderness and is negative for occult blood. EXTREMITIES: Nontender. IMPRESSION: 1. 63-year-old menopausal female status post DIAMOND bilateral salpingectomy for benign reasons. 2. Vaginal dryness with sexual intercourse is secondary to atrophy. 3. History of osteopenia. PLAN: 1. Pap smears have been discontinued. 2. Self breast awareness was discussed with the patient. 3. Screening mammogram will be done today. 4. Osteoporosis prevention was discussed. I have stressed the importance of adequate calcium, vitamin D and regular exercise. Recommended amounts of calcium and vitamin D were also discussed. We will repeat to the bone density test in 2020. 5. Trial of Premarin vaginal cream. She will use a 1-2 g intravaginally twice weekly. The prescription will be sent to [facility]. 6. The patient was advised to return in 1-2 years for her well woman examination.
--- NOTE | 2019-04-01 08:49 | MM ---
Reason for exam: screening (asymptomatic). Last mammogram was performed 1 year and 1 month ago. History: Patient is postmenopausal. Family history of premenopausal breast cancer in mother and breast cancer in aunt. Benign core biopsy, September 15, 1997. Benign stereotactic core biopsy of the left breast, September 15, 1997. Physical Findings: A clinical breast exam by your physician is recommended on an annual basis and results should be correlated with mammographic findings. MG Screening Mammo w CAD Bilateral CC and MLO view(s) were taken. Prior study comparison: February 17, 2018, bilateral MG screening mammo w CAD. January 29, 2017, bilateral MG screening mammo w CAD. There are scattered fibroglandular densities. There is no discrete abnormality. No significant changes when compared with prior studies. ASSESSMENT: Negative, BI-RAD 1 RECOMMENDATION: Routine screening mammogram of both breasts in 1 year.
== END | disposition home or self-care (01) ==
LOC: WWCWWP 15:05
PROVIDERS: ATTEND Obstetrics & Gynecology
DX: Z12.31 Encounter for screening mammogram for malignant neoplasm of breast (principal)
CPT/HCPCS: 77067

== ENCOUNTER → 2019-05-20 | Outpatient (CLI) | payer OTHER ==
[2019-05-20 08:54] LABS: HCT 42.4 % (34.0-46.0); HGB 14.4 gm/dL (11.4-16.0); MCH 31.5 pg (25.0-35.0); MCV 92.7 fL (80.0-100.0); Mean Platelet Volume 6.3; Platelet Count 306 k/uL (150-450); RBC 4.58 m/uL (3.80-5.40); RDW 13.4 % (11.5-15.5); WBC 5.9 k/uL (3.8-10.6)
[2019-05-20 08:55] LABS: INR 0.9 (<1.2)
[2019-05-20 09:04] LABS: ALT 33 U/L (9-52); AST 56 U/L (14-36); African American GFR (CKD) >90 (>60 ml/min/1.73 sqM); Albumin 4.6 g/dL (3.5-5.0); Alkaline Phosphatase 69 U/L (38-126); Anion Gap 10 mmol/L; Blood Urea Nitrogen 14 mg/dL (7-17); Calcium 9.8 mg/dL (8.4-10.2); Carbon Dioxide 28 mmol/L (22-30); Chloride 101 mmol/L (98-107); Glucose 79 mg/dL (74-99); Potassium 4.5 mmol/L (3.5-5.1); Sodium 139 mmol/L (137-145); Total Bilirubin 0.8 mg/dL (0.2-1.3); Total Protein 7.7 g/dL (6.3-8.2)
[2019-05-20 09:38] LABS: Amorphous Sediment,Urine Few /hpf; Appearance,Urine Cloudy (Clear); Bilirubin,Urine Negative (Negative); Blood,Urine Negative (Negative); Color,Urine Yellow; Glucose,Urine (UA) Negative (Negative); Ketones,Urine Negative (Negative); Leukocyte Esterase,Urine Negative (Negative); Mucus,Urine Occasional /hpf; Nitrite,Urine Negative (Negative); PH, Urine 7.5 (5.0-8.0); Protein,Urine Negative (Negative); Specific Gravity,Urine 1.015 (1.001-1.035); Squamous Epithelial Cell,Urine 3 /hpf (0-4); Urobilinogen,Urine <2.0 mg/dL (<2.0)
== END | disposition home or self-care (01) ==
LOC: LABWHC1 07:58
PROVIDERS: ATTEND Orthopaedic Surgery
DX: Z01.812 Encounter for preprocedural laboratory examination (principal); Z79.01 Long term (current) use of anticoagulants
CPT/HCPCS: 36415; 80053; 81001; 85027; 85610; 85730; 87070

== ENCOUNTER 2019-05-31 05:42 | Inpatient (IN) | payer OTHER, MEDICARE ==
[~2019-05-31 05:42] MED LIST changes: +ACETAMINOPHEN TAB 500 MG TAB PO ONE; +GABAPENTIN 300 MG CAP PO ONE; -LACTATED RINGERS 1,000 ML IV SCH; +LIDOCAINE 1% 20 ML VIAL (10MG/ML) FOR IV START INTRADERMA PRN; +MELOXICAM 7.5 MG TAB PO ONE; +MIDAZOLAM 2 MG/2 ML VIAL IV PRN; +TRANEXAMIC ACID 1,000 MG in SODIUM CHLORIDE 0.9% 100 ML IVPB ONE
[2019-05-31] MEDS ORDERED: ROPIVACAINE 246.25 MG, EPINEPHrine 0.5 MG, KETOROLAC 30 MG, cloNIDine HCL/PF 80 MCG, WA... MISCELLANE ONE ×10 (06:00→06:05)
[2019-05-31] MEDS: LACTATED RINGERS 1,000 ML IV SCH ×2 (06:28→15:00)
[2019-05-31] MEDS ORDERED: MIDAZOLAM (PF) 2 MG/2 ML VIAL IVP ONE (06:40)
[2019-05-31] MEDS ORDERED: ONDANSETRON 4 MG/2 ML VIAL IVP ONE (06:41)
[2019-05-31] MEDS ORDERED: DEXAMETHASONE SOD PHOSPHATE 10 MG/ML 1 ML VIAL IV ONE (06:42)
[2019-05-31] MEDS ORDERED: fentaNYL (PF) 50 MCG/ML 2 ML AMP ONE (06:55)
[2019-05-31] MEDS ORDERED: PROPOFOL 10 MG/ML 20 ML VIAL IV ONE (06:55)
[2019-05-31] MEDS ORDERED: PHENYLEPHRINE-0.9% NACL SYG 1 MG/10 ML SYRINGE ONE (06:55)
[2019-05-31] MEDS ORDERED: HEPARIN SODIUM,PORCINE 10,000 UNIT/ML 1 ML VIAL ONE (06:55)
[2019-05-31] MEDS ORDERED: TRANEXAMIC ACID 1,000 MG/10 ML VIAL ONE (06:55)
[2019-05-31] MEDS ORDERED: SODIUM CHLORIDE 0.9% 100 ML BAG ONE (06:55)
[2019-05-31] MEDS ORDERED: MIDAZOLAM 2 MG/2 ML VIAL ONE (06:55)
[2019-05-31] MEDS ORDERED: SODIUM CHLORIDE 0.9% IRRIG 1,000 ML BTL IRRIGATION ONE (06:55)
[2019-05-31] MEDS ORDERED: LACTATED RINGERS 1,000 ML IV ONE (07:44)
--- NOTE | 2019-05-31 08:48 | P.OP ---
Date of Procedure: 05/31/19 Preoperative Diagnosis: Severe osteoarthritis right hip Postoperative Diagnosis: Severe osteoarthritis right hip Procedure(s) Performed: Right total hip arthroplasty with a direct anterior approach Implants: Guzman and nephew Polarstem size 6 standard Guzman [employer] Nephew R3, 3 hole acetabular shell, 52 mm Guzman [employer] Nephew reflection 6.5 mm cancellus screw, 20 mm 2 Guzman [employer] Nephew R3, XLPE 20 acetabular liner Guzman & Nephew Oxinium femoral head 36 m, +0 All components were press-fit. The articulation is Oxinium on polyethylene. Anesthesia: spinal Surgeon: Ernesto Valle Restaurant Attendant #1: Martita Peña Estimated Blood Loss (ml): 100 Pathology: other (Femoral head) Condition: stable Disposition: PACU Indications for Procedure: After failure of conservative treatment we discussed the surgical and nonsurgical treatment options at length. Patient wishes to proceed with a total hip arthroplasty with a direct anterior approach. Complications specific to this procedure were discussed at length, including but not limited to infection, leg length discrepancy, dislocation, and nerve injury. Patient is aware of all these complications and informed consent was obtained Operative Findings: The operative findings are consistent with severe osteoarthritis of the right hip Description of Procedure: Patient was seen and evaluated in the preoperative area, consent was reviewed, and the surgical site was marked with a skin marker. Patient was then brought to the operating room and given prophylactic antibiotics intravenously. 1 g of Tranexamic acid was also given. A spinal anesthetic was administered by the anesthesia department. The patient was then placed on the [place] table with the bony prominences well-padded. The hip area was then prepped and draped in usual sterile fashion. A universal timeout was then performed, which confirmed the patient's name, surgical site, ALLERGIES, and procedure being performed. Next the incision site was located at 1 cm distal and 1 cm lateral to the anterior superior iliac spine. The skin and subcutaneous tissues were sharply incised. Incision was carefully dissected down to the fascia overlying the tensor fascia jose luis muscle. This fascia was then incised in line with the incision. Next, using blunt finger dissection, the tensor fascia jose luis muscle was dissected off its investing fascia. The muscle was then carefully retracted laterally with a cobra retractor over the lateral neck of the femur. Next, the circumflex vessels were identified and cauterized using the AquaMantis device. The anterior hip capsule was then exposed. The capsule was then opened and an inverted T fashion. Cobra retractors were then placed intracapsularly. The proximal femur was then visualized. The femoral neck was then osteotomized appropriate level above the lesser trochanter. Small amount of traction was placed with the [place] table. A small wedge of bone was then removed from the remaining femoral head. Next, using a corkscrew femoral head was easily removed from the acetabulum. On gross visual inspection, the femoral head had complete loss of articular cartilage in multiple periarticular osteophytes. Attention was then turned to the acetabulum. the acetabulum was exposed and any remaining labrum was excised. Sequential reaming of the acetabulum was performed using fluoroscopic guidance. When the appropriate size was reached, a trial was then placed. The position and fit of the trial was checked with fluoroscopy. The trial was then removed. Then, using fluoroscopic guidance, the final implant was impacted at 20 of anteversion and 40 of abduction, and fully seated in the acetabulum. 2 screws were then placed in the acetabulum. Again fluoroscopy was used to check position of the screws. Next, the liner was then impacted, with a 20 elevated liner located in the anterior superior quadrant. Component locking was confirmed. Attention was then directed to the femur. With the aid of the [place] table, the femur was externally rotated to approximately 130, extended, and abducted under the opposite leg. A side hook was then placed under the proximal femur, and the side hook elevator was used to elevate the proximal femur. Retractors were then placed. A capsular release was performed, as well as a release of the conjoined tendon, which afforded excellent visualization of the proximal femur. Next, a box osteotome was used to lateralize the proximal femur. A muffler hand was then used to locate the femoral canal. Sequential broaching was then performed with appropriate size which afforded excellent fixation in the proximal femur. A trial was then placed with appropriate head and neck, and the hip was gently reduced with the aid of the [place] table. Fluoroscopy was then used to check position of the components, as well as to ensure equal leg lengths. The hip was then gently dislocated and the trials were then removed. Final implants were then impacted and the hip was again reduced. Final fluoroscopic x-rays confirmed that the components were in anatomic position, as well as equal leg lengths. The hip was also taken through range of motion, and found to be stable. The hip was then copiously irrigated with antibiotic solution with pulsatile lavage. The hip was then irrigated with Irrisept solution. The soft tissues were then injected with a ropivacaine solution, which consisted of 246.25 mg of ropivacaine, 0.5 mg of epinephrine, 30 mg of Toradol, 80 g of clonidine, and 48.45 mL of sterile water, for a total of 100 mL of fluid injected. A second dose of 1 g of Tranexamic acid was also given. the fascia was then closed with 2-0 strata fix suture. The subcutaneous tissue was closed with 3-0 Vicryl. The subcuticular tissue was closed with 3-0 strata fix suture. The skin was then closed with Dermabond glue and a sterile silver dressing. The patient was then transferred to the recovery room in stable condition. The news assistant BELKIS Pate was required due to the complexity of surgery, and the need for skilled technical support assistant for positioning, draping, exposure, retraction, and closure of the wound.
--- NOTE | 2019-05-31 08:54 | XR ---
Fluoroscopy INDICATION: Pain FINDINGS: Fluoroscopy time: 36 seconds. Images obtained: 2. IMPRESSIONS: 1. Documentation of fluoroscopy.
[2019-05-31] MEDS ORDERED: NALOXONE 0.4 MG/ML 1 ML VIAL IV PRN (09:03)
[2019-05-31] MEDS ORDERED: DIAZEPAM 5 MG TAB PO PRN (09:03)
[2019-05-31] MEDS ORDERED: HYDROmorphone 0.5 MG/0.5 ML SYRINGE IVP PRN ×2 (09:03)
[2019-05-31] MEDS ORDERED: HYDROcodone/APAP 5-325MG 1 EACH TAB PO PRN (09:03)
[2019-05-31] MEDS ORDERED: MAGNESIUM HYDROXIDE 2,400 MG/10 ML CUP PO PRN (09:03)
[2019-05-31] MEDS ORDERED: hydrOXYzine PAMOATE 25 MG CAP PO PRN (09:03)
--- NOTE | 2019-05-31 09:32 | XR ---
EXAMINATION TYPE: XR Hip Limited RT DATE OF EXAM: 05/31/2019 COMPARISON: NONE HISTORY: 63-year-old female status post hip surgery, assess surgical alignment TECHNIQUE: Single AP view FINDINGS: Image shows placement of right total hip orthoplasty. Both acetabular cup and femoral stem components of the prosthesis appear well seated without periprosthetic fracture. Alignment grossly anatomic. Sc attered soft tissue air related to recent operation. IMPRESSION: Uncomplicated postoperative appearance right total hip arthroplasty.
[2019-05-31] MEDS: fentaNYL (PF) 50 MCG/ML 2 ML AMP IV PRN ×2 (12:09→12:24)
[2019-05-31] MEDS: HYDROcodone/APAP 5-325MG 1 EACH TAB PO PRN ×2 (13:49→19:56)
[2019-05-31] MEDS ORDERED: ONDANSETRON 4 MG/2 ML VIAL IVP PRN (14:22)
[2019-05-31] MEDS: SODIUM CHLORIDE 0.9% 1,000 ML IV SCH (15:02)
[2019-05-31] MEDS: HYDROmorphone 0.5 MG/0.5 ML SYRINGE IVP PRN ×2 (17:30→22:17)
[2019-05-31 19:13] VITALS: BMI 23.2
[2019-05-31] MEDS: ASPIRIN 325 MG TAB PO SCH (19:56)
[2019-05-31] MEDS ORDERED: PANTOPRAZOLE 40 MG TABLET PO PRN (20:36)
[2019-05-31] MEDS ORDERED: NITROGLYCERIN SL TABS 0.4 MG TAB SUBLINGUAL PRN (20:36)
[2019-05-31] MEDS: SYMBICORT 160-4.5 MCG INHALER INHALATION SCH (20:58)
[2019-05-31] MEDS ORDERED: SENNOSIDES-DOCUSATE SODIUM 1 EACH TAB PO SCH (21:00)
--- NOTE | 2019-05-31 21:49 | P.CONS ---
History of Present Illness - Reason for Consult Consult date: 05/31/19 Medical management Requesting physician: Ernesto Valle - Chief Complaint Right hip surgery - History of Present Illness Consultation: This is a very pleasant 63-year-old patient of Dr. Pop. Chronic stable medical conditions include COPD, GERD, varicose veins, right lung nodule being followed by Dr. Stocktno. Patient has undergone right total hip arthroplasty. Pain is controlled. Had slight nausea earlier. No vomiting. No chest pain no shortness of breath. Did tolerate her supper. Has been out of bed. Overall feeling well. Review of systems: GEN.: Tired EYES: None HEENT: None NECK: None RESPIRATORY: None CARDIOVASCULAR: None GASTROINTESTINAL: None GENITOURINARY: None MUSCULOSKELETAL: Pain in joints LYMPHATICS: None HEMATOLOGICAL: None PSYCHIATRY: None NEUROLOGICAL: None Social history: Smoked 2 packs a day for 30 years stopped in 1998. Alcohol rarely. Physical examination: VITAL SIGNS: 98, 60, 17, 11 3/67, 99% room air GENERAL: BMI 23.7, sitting up in bed, comfortable. EYES: Pupils equal. Conjunctiva normal. HEENT: External appearance of nose and ears normal, oral cavity grossly normal. NECK: JVD not raised; masses not palpable. HEART: First and second heart sounds are normal; no edema. LUNGS: Respiratory rate normal; decreased breath sounds. ABDOMEN: Soft, nontender, liver spleen not palpable, no masses palpable. PSYCH: Alert and oriented x3; mood and affect normal. NEUROLOGICAL: Cranial nerves grossly intact; no facial asymmetry, power and sensation grossly intact. LYMPHATICS: No lymph nodes palpable in the axilla and neck MUSCULOSKELETAL: Evidence of OA in the hands, dressing over the right hip INVESTIGATIONS, reviewed in the clinical context: 05/20/2019 White count 5.9 hemoglobin 14.4 potassium 4.5 creatinine 0.66 Assessment: -Right total hip arthroplasty -COPD in an ex-smoker -GERD -Chronic varicose pains -Right lung nodule being followed by Dr. Shirley -Primary osteoarthritis Plan: Home medications resumed. Patient is on aspirin 325 mg twice a day for DT prophylaxis per Dr. Valle. Care was discussed with the patient. Questions were answered. Activity is started. Thank you Dr. Valle Past Medical History Past Medical History: COPD, GERD/Reflux, Osteoarthritis (OA) Additional Past Medical History / Comment(s): Varicose veins, nodule on rt lung- drTod monitoring, Osteopenia, tends to run low BP, episode in Aug. of chest discomfort, testing was neg. per pt. History of Any Multi-Drug Resistant Organisms: None Reported Past Surgical History: Appendectomy, Section, Cholecystectomy, Hysterectomy, Joint Replacement, Orthopedic Surgery, Tonsillectomy Additional Past Surgical History / Comment(s): L hip anterior replacement. Knee and shoulder surgery. Colonoscopy Past Anesthesia/Blood Transfusion Reactions: No Reported Reaction Additional Past Anesthesia/Blood Transfusion Reaction / Comm: States BP dropped with last surgery. Past Psychological History: No Psychological Hx Reported Smoking Status: Former smoker Past Alcohol Use History: Rare Additional Past Alcohol Use History / Comment(s): Quit 1998 smoking,started smoking at age 13,2ppd Past Drug Use History: None Reported - Past Family History Mother Family Medical History: Cancer Additional Family Medical History / Comment(s): Breast and lung cancer. Mother's twin sister had breast cancer Medications and Allergies Home Medications Medication Instructions Recorded Confirmed Type Tiotropium [place] [Spiriva] 1 cap INHALATION RT-DAILY 10/25/14 05/21/19 History Budesonide-Formot 160-4.5 Mcg 2 puff INHALATION RT-BID 04/07/17 05/21/19 History [Symbicort 160-4.5 Mcg Inhaler] Multivit with Calcium,Iron,Min 1 tab PO DAILY 04/07/17 05/31/19 History [Women's Multivitamin] Calcium Carbonate [Calcium] 600 mg PO BID 08/20/18 05/31/19 History Cholecalciferol (Vitamin D3) 2,000 mg PO DAILY #0 08/20/18 05/31/19 History [Vitamin D3] Nitroglycerin Sl Tabs [Nitrostat] 0.4 mg SUBLINGUAL Q5M PRN #25 tab 08/21/18 05/21/19 Rx Albuterol Inhaler [Ventolin Hfa 1 - 2 puff INHALATION RT-Q6H PRN 05/21/19 05/31/19 History Inhaler] HYDROcodone/APAP 5-325MG [[place] 1 tab PO Q6HR PRN 05/21/19 05/31/19 History 5-325] Naproxen [Naprosyn] 500 mg PO Q12HR PRN 05/21/19 05/31/19 History Omeprazole [PriLOSEC] 20 mg PO AC-BRKFST PRN 05/21/19 05/31/19 History Allergies Allergy/AdvReac Type Severity Reaction Status Date / Time No Known Allergies Allergy Verified 05/21/19 14:26 Physical Exam Vitals: Vital Signs Temp Pulse Resp BP Pulse Ox 05/31/19 19:44 98.0 F 60 17 113/67 99 05/31/19 12:40 97.7 F 64 16 124/75 98 05/31/19 12:05 61 16 99/55 98 05/31/19 11:48 58 L 16 93/55 100 05/31/19 11:03 58 L 16 105/53 100 05/31/19 10:30 59 L 16 109/53 100 05/31/19 10:18 59 L 16 96/49 100 05/31/19 09:57 60 16 98/50 97 05/31/19 09:44 60 16 101/55 99 05/31/19 09:28 61 16 96/47 99 05/31/19 09:11 59 L 14 107/57 100 05/31/19 08:56 97.6 F 65 14 92/48 98 05/31/19 06:28 98.6 F 69 18 120/65 98 Intake and Output 05/31/19 05/31/19 05/31/19 06:59 14:59 22:59 Intake Total 500 1350 240 Output Total 200 Balance 500 1150 240 Intake: IV 500 1350 Oral 240 Output: Urine 200 Other: Voiding Method Toilet # Voids 2
[2019-05-31] MEDS: CALCIUM CARBONATE 500 MG CHEWABLE PO SCH (22:18)
[2019-06-01] MEDS: HYDROcodone/APAP 5-325MG 1 EACH TAB PO PRN ×2 (01:56→08:20)
[2019-06-01] MEDS: SODIUM CHLORIDE 0.9% 1,000 ML IV SCH (02:00)
[2019-06-01 03:15] VITALS: RESP 19
[2019-06-01] MEDS: HYDROmorphone 0.5 MG/0.5 ML SYRINGE IVP PRN (04:16)
[2019-06-01] MEDS: SYMBICORT 160-4.5 MCG INHALER INHALATION SCH (07:18)
[2019-06-01 07:44] LABS: Basophils % (A) 1 %; Eosinophils # (A) 0.1 k/uL (0-0.7); Eosinophils % (A) 1 %; HCT 30.7 % (34.0-46.0); Lymphocytes # (A) 1.3 k/uL (1.0-4.8); Lymphocytes % (A) 15 %; MCH 31.5 pg (25.0-35.0); MCHC 34.3 g/dL (31.0-37.0); MCV 91.8 fL (80.0-100.0); Mean Platelet Volume 6.8; Monocytes # (A) 0.5 k/uL (0-1.0); Monocytes % (A) 6 %; Neutrophils # (A) 6.3 k/uL (1.3-7.7); Neutrophils % (A) 76 %; Platelet Count 224 k/uL (150-450); RBC 3.34 m/uL (3.80-5.40); RDW 14.5 % (11.5-15.5); WBC 8.3 k/uL (3.8-10.6)
[2019-06-01 07:50] LABS: HGB 10.5 gm/dL (11.4-16.0)
[2019-06-01] MEDS ORDERED: IPRATROPIUM 0.5 MG/2.5 ML NEBU INHALATION SCH (08:00)
[2019-06-01] MEDS: CALCIUM CARBONATE 500 MG CHEWABLE PO SCH (08:20)
[2019-06-01] MEDS: ASPIRIN 325 MG TAB PO SCH (08:21)
[2019-06-01 08:38] VITALS: BP 120/66; PULSE 69; TEMP 97.9
[2019-06-01] MEDS ORDERED: MELOXICAM 7.5 MG TAB PO SCH (09:00)
[2019-06-01] MEDS ORDERED: HYDROcodone/APAP 7.5-325MG 1 EACH TAB PO PRN ×2 (09:25)
--- NOTE | 2019-06-01 09:34 | P.DS ---
Providers Date of admission: 05/31/19 05:42 Expected date of discharge: 06/01/19 Attending physician: Ernesto Valle Consults: 05/31/19 09:03 Consult Physician Routine Consulting Provider: Austen Monaco Consult Reason/Comments: medical management Do you want consulting provider notified?: Yes Primary care physician: Juan C Pop - Discharge Diagnosis(es) (1) Osteoarthritis of right hip Current Visit: Yes Status: Acute (2) Status post total hip replacement, right Current Visit: Yes Status: Acute Hospital Course: This is a 63-year-old female with known history of degenerative arthritis of the right hip. The patient presents for evaluation. After discussion and consideration patient elects to proceed with total hip arthroplasty. The patient is seen preoperatively by Dr. Valle and medically cleared for surgery by their primary care physician. Patient is admitted to [facility] on 05/31/2019 for total hip arthroplasty. The procedures performed without complication or sequelae. The patient is doing well postoperatively. Labs and vital signs are stable on day of discharge. On day of discharge patient's hip incision is healing well. There is minimal erythema. There is no drainage noted at this time. There is minimal soft tissue swelling to the hip and thigh. Patient has full foot and ankle motion without difficulty or pain. Calf is soft and nontender to palpation. Neurovascular status to the right lower extremity is intact. Patient is discharged home in good condition. Opioid start talking form is reviewed and signed at patient bedside. Please see med rec for accurate list of home medications. Plan - Discharge Summary Discharge Rx Participant: Yes New Discharge Prescriptions: New Aspirin 325 mg PO BID #60 tab Sennosides [Senokot] 1 tab PO BID #60 tablet HYDROcodone/APAP 7.5-325MG [[place] 7.5-325] 1 - 2 tab PO Q6H PRN #56 tab PRN Reason: Pain No Action Tiotropium [place] [Spiriva] 1 cap INHALATION RT-DAILY Budesonide-Formot 160-4.5 Mcg [Symbicort 160-4.5 Mcg Inhaler] 2 puff INHALATION RT-BID Multivit with Calcium,Iron,Min [Women's Multivitamin] 1 tab PO DAILY Cholecalciferol (Vitamin D3) [Vitamin D3] 2,000 mg PO DAILY #0 Calcium Carbonate [Calcium] 600 mg PO BID Nitroglycerin Sl Tabs [Nitrostat] 0.4 mg SUBLINGUAL Q5M PRN #25 tab PRN Reason: Angina Omeprazole [PriLOSEC] 20 mg PO AC-BRKFST PRN PRN Reason: Heartburn Naproxen [Naprosyn] 500 mg PO Q12HR PRN PRN Reason: Pain HYDROcodone/APAP 5-325MG [[place] 5-325] 1 tab PO Q6HR PRN PRN Reason: Pain Albuterol Inhaler [Ventolin Hfa Inhaler] 1 - 2 puff INHALATION RT-Q6H PRN PRN Reason: Dyspnea Discharge Medication List Tiotropium [place]ion [Spiriva] 1 cap INHALATION RT-DAILY 10/25/14 [History] Budesonide-Formot 160-4.5 Mcg [Symbicort 160-4.5 Mcg Inhaler] 2 puff INHALATION RT-BID 04/07/17 [History] Multivit with Calcium,Iron,Min [Women's Multivitamin] 1 tab PO DAILY 04/07/17 [History] Calcium Carbonate [Calcium] 600 mg PO BID 08/20/18 [History] Cholecalciferol (Vitamin D3) [Vitamin D3] 2,000 mg PO DAILY #0 08/20/18 [History] Nitroglycerin Sl Tabs [Nitrostat] 0.4 mg SUBLINGUAL Q5M PRN #25 tab 08/21/18 [Rx] Albuterol Inhaler [Ventolin Hfa Inhaler] 1 - 2 puff INHALATION RT-Q6H PRN 05/21 [History] HYDROcodone/APAP 5-325MG [[place] 5-325] 1 tab PO Q6HR PRN 05/21/19 [History] Naproxen [Naprosyn] 500 mg PO Q12HR PRN 05/21/19 [History] Omeprazole [PriLOSEC] 20 mg PO AC-BRKFST PRN 05/21/19 [History] Aspirin 325 mg PO BID #60 tab 06/01/19 [Rx] HYDROcodone/APAP 7.5-325MG [[place] 7.5-325] 1 - 2 tab PO Q6H PRN #56 tab 06/01/19 [Rx] Sennosides [Senokot] 1 tab PO BID #60 tablet 06/01/19 [Rx] Follow up Appointment(s)/Referral(s): Ernesto Valle DO [Doctor of Osteopathic Medicine] - 06/14/19 1:00 pm Activity/Diet/Wound Care/Special Instructions: Weightbearing as tolerated with walker. Leave dressing intact. Dressing may be removed by home care nurse or by patient in 10 days. May shower with dressing on. Recommend use of compression stockings daily for at least 2 weeks during the day to help prevent swelling and blood clots. May remove at night before sleeping. Please follow-up with [facility] in 2 weeks and call with any questions or concerns, . Discharge Disposition: HOME WITH HOME HEALTH SERVICES
--- NOTE | 2019-06-02 01:21 | P.PN ---
Progress Note - Text Progress Note Date: 06/01/19 Interval history: This is a very pleasant 63-year-old patient of Dr. Pop. Chronic stable me dical conditions include COPD, GERD, varicose veins, right lung nodule being followed by Dr. Stockton. Patient has undergone right total hip arthroplasty. Pain is controlled. Had slight nausea earlier. No vomiting. No chest pain no shortness of breath. Did tolerate her supper. Has been out of bed. Overall feeling well. Today-feeling well. Patient controlled. Has been out of bed. Did tolerate her breakfast. Eager to get discharged. Review of systems: Was done for constitutional, cardiovascular, GI, pulmonary. relevant finding as above Current medications reviewed from today's electronics records Physical examination: VITAL SIGNS: 97.9, 69, 120 over synthesis, 95% room air GENERAL: BMI 23.7, sitting up in bed, comfortable. EYES: Pupils equal. Conjunctiva normal. HEENT: External appearance of nose and ears normal, oral cavity grossly normal. NECK: JVD not raised; masses not palpable. HEART: First and second heart sounds are normal; no edema. LUNGS: Respiratory rate normal; decreased breath sounds. ABDOMEN: Soft, nontender, liver spleen not palpable, no masses palpable. PSYCH: Alert and oriented x3; mood and affect normal. MUSCULOSKELETAL: Evidence of OA in the hands, dressing over the right hip INVESTIGATIONS, reviewed in the clinical context: Hemoglobin 10.5 05/20/2019 White count 5.9 hemoglobin 14.4 potassium 4.5 creatinine 0.66 Assessment: -Right total hip arthroplasty -COPD in an ex-smoker -GERD -Chronic varicose pains -Right lung nodule being followed by Dr. Shirley -Primary osteoarthritis -Acute postop blood loss anemia expected from surgery Plan: Stable. Continue current medication treatment plan. Patient may use iron supplement. Thank you Dr. Valle
== END 2019-06-01 11:32 | disposition home health service (06) | DRG 470 ==
LOC: 2ORMAIN 05:42 → 4SSUR 12:06
PROVIDERS: ADMIT Orthopaedic Surgery; ATTEND Orthopaedic Surgery
PROC: 30233N0 Transfusion of Autologous Red Blood Cells into Peripheral Vein, Percutaneous Approach (ICD-10-PCS; 2019-05-31)
PROC: 0SR906A Replacement of Right Hip Joint with Oxidized Zirconium on Polyethylene Synthetic Substitute, Uncemented, Open Approach (ICD-10-PCS; principal; 2019-05-31 07:00)
DX: M16.11 Unilateral primary osteoarthritis, right hip (principal); D62 Acute posthemorrhagic anemia; J44.9 Chronic obstructive pulmonary disease, unspecified; E78.2 Mixed hyperlipidemia; K21.9 Gastro-esophageal reflux disease without esophagitis; I83.90 Asymptomatic varicose veins of unspecified lower extremity; M85.80 Other specified disorders of bone density and structure, unspecified site; E04.1 Nontoxic single thyroid nodule; R91.1 Solitary pulmonary nodule; Z79.51 Long term (current) use of inhaled steroids; Z79.899 Other long term (current) drug therapy; Z87.891 Personal history of nicotine dependence; Z90.49 Acquired absence of other specified parts of digestive tract; Z90.710 Acquired absence of both cervix and uterus; Z96.642 Presence of left artificial hip joint; Z98.891 History of uterine scar from previous surgery; Z87.440 Personal history of urinary (tract) infections; Z86.010 Personal history of colon polyps; Z98.890 Other specified postprocedural states; Z80.3 Family history of malignant neoplasm of breast; Z80.1 Family history of malignant neoplasm of trachea, bronchus and lung
CPT/HCPCS: 73501; 85025; 86850; 86891; 86900; 86901; 88300; 94640

== ENCOUNTER → 2020-05-02 | Outpatient (CLI) | payer OTHER ==
[2020-05-02 09:39] VITALS: BP 111/72; PULSE 84; RESP 18; TEMP 98.1
--- NOTE | 2020-05-02 10:12 | P.HPOB ---
History of Present Illness H&P Date: 05/02/20 Chief Complaint: The patient is here for her routine gynecologic exam and ma mmogram. This is a 64-year-old with an LMP of 1993. The patient is status post DIAMOND for benign reasons. The patient has been experiencing discomfort with sexual intercourse related to dryness. She states she only briefly use the Premarin vaginal cream which was prescribed last year. She would like to use this again. The patient is otherwise without gynecologic complaints. Review of Systems She has gained about 6 pounds over the last year. She denies respiratory, cardiac and G.I. problems. She denies maltreatment or problems with falling. : she denies any significant problems with urinary leakage. Past Medical History Past Medical History: COPD Additional Past Medical History / Comment(s): Varicose veins, arthritis, nodule on rt lung. Osteopenia. 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 History of Any Multi-Drug Resistant Organisms: None Reported Past Surgical History: Appendectomy, Section, Cholecystectomy, Hysterectomy, Joint Replacement, Orthopedic Surgery, Tonsillectomy Additional Past Surgical History / Comment(s): DIAMOND BILATERAL SALPINGECTOMY (not oophorectomy)1993, BL hip replacements. Knee and shoulder surgery. Colonoscopy 2017(2nd, next 5 yrs). Past Anesthesia/Blood Transfusion Reactions: No Reported Reaction Additional Past Anesthesia/Blood Transfusion Reaction / Comment(s): States BP dropped with last surgery. Past Psychological History: No Psychological Hx Reported Smoking Status: Former smoker Past Alcohol Use History: Rare (5 per Year) Additional Past Alcohol Use History / Comment(s): Quit 1998 smoking,started smoking at age 13,2ppd Past Drug Use History: None Reported Additional History: She has been since 1983. She is retired. - Past Family History Mother Family Medical History: Cancer Additional Family Medical History / Comment(s): Breast and lung cancer. Mother's twin sister had breast cancer Medications and Allergies Home Medications Medication Instructions Recorded Confirmed Type Tiotropium [place] [Spiriva] 1 cap INHALATION RT-DAILY 10/25/14 05/02/20 History Budesonide-Formot 160-4.5 Mcg 2 puff INHALATION RT-BID 04/07/17 05/02/20 History [Symbicort 160-4.5 Mcg Inhaler] Multivit with Calcium,Iron,Min 1 tab PO DAILY 04/07/17 05/02/20 History [Women's Multivitamin] Calcium Carbonate [Calcium] 600 mg PO BID 08/20/18 05/02/20 History Cholecalciferol (Vitamin D3) 2,000 mg PO DAILY #0 08/20/18 05/02/20 History [Vitamin D3] Albuterol Inhaler (Mhu) [Ventolin 1 - 2 puff INHALATION RT-Q6H PRN 05/21/19 05/02/20 History Hfa Inhaler (Mhu)] Allergies Allergy/AdvReac Type Severity Reaction Status Date / Time No Known Allergies Allergy Verified 05/02/20 09:13 Exam Vital Signs Temp Pulse Resp BP Pulse Ox 05/02/20 09:32 98.1 F 84 18 111/72 98 Intake and Output 05/01/20 05/02/20 05/02/20 22:59 06:59 14:59 Other: Weight 70.307 kg Height 5 feet 5-1/2 inches, weight 155 pounds, BMI 25.4. This is a well-developed well-nourished white female who is alert and oriented times 3 in no acute distress. HEENT: Within normal limits. NECK: Supple without mass or thyromegaly. CHEST AND LUNGS: Clear to auscultation. HEART: Regular rate and rhythm. BREASTS: Are without mass or discharge. AXILLARY EXAM: Negative for adenopathy. BACK: Negative for CVA tenderness. ABDOMEN: Soft, nontender, without palpable masses. PELVIC EXAM: External genitalia appears normal with mild atrophy. Vagina appears normal with mild to moderate atrophy. There is no evidence of prolapse. Bimanual examination is negative for mass or tenderness. RECTAL EXAM: Rectovaginal exam is negative for mass or tenderness and is negative for occult blood. EXTREMITIES: Nontender. IMPRESSION: 1. 64-year-old menopausal female status post DIAMOND for benign reasons with normal gynecologic exam. 2. Dyspareunia secondary to vaginal dryness and genital atrophy. 3. History of osteopenia. PLAN: 1. Pap smears have been discontinued. 2. Self breast awareness was discussed with the patient. 3. Screening mammogram will be done today. 4. Osteoporosis prevention was discussed. I have stressed the importance of adequate calcium, vitamin D and regular exercise. Recommended amounts of calcium and vitamin D were also discussed. We will plan on repeating bone density testing in 2020. 5. A prescription for Premarin vaginal cream will be sent to [facility] in [facility]. She will use 1-2 g intravaginally twice weekly. 6. The patient does receive flu shots in the fall and is planning to get this when available. 7. She was advised to return in one year for her annual well woman exam.
--- NOTE | 2020-05-03 09:07 | MM ---
Reason for exam: screening (asymptomatic). Last mammogram was performed 1 year and 1 month ago. History: Patient is postmenopausal. Family history of premenopausal breast cancer in mother and breast cancer in aunt. Benign core biopsy, September 15, 1997. Benign stereotactic core biopsy of the left breast, September 15, 1997. Physical Findings: A clinical breast exam by your physician is recommended on an annual basis and results should be correlated with mammographic findings. MG Screening Mammo w CAD Bilateral CC and MLO view(s) were taken. Prior study comparison: March 30, 2019, bilateral MG screening mammo w CAD. February 17, 2018, bilateral MG screening mammo w CAD. There are scattered fibroglandular densities. There is no discrete abnormality. No significant changes when compared with prior studies. ASSESSMENT: Negative, BI-RAD 1 RECOMMENDATION: Routine screening mammogram of both breasts in 1 year.
--- NOTE | 2020-05-03 13:22 | P.PN ---
Progress Note - Text Progress Note Date: 05/03/20 I was contacted by [facility] in [facility]. The pharmacy states that the insurance is requesting a change to generic estradiol vaginal cream from Premarin vaginal cream. The prescription for estradiol vaginal cream 0.01% was sent by fax. They are to dispense a 3 month supply with 3 refills. She is to insert 1 g into the vagina 2 times weekly. A message was left on the patient's voicemail indicating this change. She is to call if she has any questions or problems.
== END | disposition home or self-care (01) ==
LOC: WWCWWP 09:09
PROVIDERS: ATTEND Obstetrics & Gynecology
DX: Z12.31 Encounter for screening mammogram for malignant neoplasm of breast (principal)
CPT/HCPCS: 77067

== ENCOUNTER → 2021-05-08 | Outpatient (CLI) | payer OTHER ==
[2021-05-08 13:47] VITALS: BP 120/72; PULSE 71; RESP 18; TEMP 97.9
--- NOTE | 2021-05-08 14:19 | P.HPOB ---
History of Present Illness H&P Date: 05/08/21 Chief Complaint: The patient is here for her routine gynecologic exam and ma mmogram. This is a 65-year-old with an LMP of 1993. The patient is status post DIAMOND for benign reasons. The patient continues to have some vaginal dryness and she has intermittently used Premarin vaginal cream. She states it does help when she uses it. She is interested in getting another prescription for this. Review of Systems The patient has lost 14 pounds over the last year. She denies respiratory, cardiac, or G.I. problems. Past Medical History Past Medical History: COPD Additional Past Medical History / Comment(s): Varicose veins, arthritis, nodule on rt lung. Osteopenia. [employer] ARC history: she has no history of STDs. History of Any Multi-Drug Resistant Organisms: None Reported Past Surgical History: Appendectomy, Section, Cholecystectomy, Hysterectomy, Joint Replacement, Orthopedic Surgery, Tonsillectomy Additional Past Surgical History / Comment(s): DIAMOND BILATERAL SALPINGECTOMY (not oophorectomy)1993, BL hip replacements. Knee and shoulder surgery. Colonoscopy 2017(2nd, next 5 yrs). Past Anesthesia/Blood Transfusion Reactions: No Reported Reaction Additional Past Anesthesia/Blood Transfusion Reaction / Comment(s): States BP dropped with last surgery. Past Psychological History: No Psychological Hx Reported Smoking Status: Former smoker Past Alcohol Use History: Occasional (0-4 per month) Additional Past Alcohol Use History / Comment(s): Quit 1998 smoking,started smoking at age 13 ,2ppd Past Drug Use History: None Reported Additional History: She has been since 1983 and is sexually active. She is retired. - Past Family History Mother Family Medical History: Cancer Additional Family Medical History / Comment(s): Breast and lung cancer. Mother's twin sister had breast cancer Medications and Allergies Home Medications Medication Instructions Recorded Confirmed Type Tiotropium Gravity [Spiriva] 1 cap INHALATION RT-DAILY 10/25/14 05/08/21 History Budesonide-Formot 160-4.5 Mcg 2 puff INHALATION RT-BID 04/07/17 05/08/21 History [Symbicort 160-4.5 Mcg Inhaler] Multivit with Calcium,Iron,Min 1 tab PO DAILY 04/07/17 05/08/21 History [Women's Multivitamin] Calcium Carbonate [Calcium] 600 mg PO BID 08/20/18 05/08/21 History Cholecalciferol (Vitamin D3) 2,000 mg PO DAILY #0 08/20/18 05/08/21 History [Vitamin D3] Albuterol Inhaler (Mhu) [Ventolin 1 - 2 puff INHALATION RT-Q6H PRN 05/21/19 05/08/21 History Hfa Inhaler (Mhu)] Allergies Allergy/AdvReac Type Severity Reaction Status Date / Time No Known Allergies Allergy Verified 05/08/21 13:40 Exam Vital Signs Temp Pulse Resp BP Pulse Ox 05/08/21 13:41 97.9 F 71 18 120/72 98 Intake and Output 05/07/21 05/08/21 05/08/21 22:59 06:59 14:59 Other: Weight 63.957 kg Height 5 feet 5 inches, weight 141 pounds, BMI 23.5. This is a well-developed well-nourished white female who is alert and oriented times 3 in no acute distress. HEENT: Within normal limits. NECK: Supple without mass or thyromegaly. CHEST AND LUNGS: Clear to auscultation. HEART: Regular rate and rhythm. BREASTS: Are without mass or discharge. AXILLARY EXAM: Negative for adenopathy. BACK: Negative for CVA tenderness. ABDOMEN: Soft, nontender, without palpable masses. PELVIC EXAM: External genitalia appears normal with moderate atrophy. Vagina appears normal with mild to moderate atrophy. There is no evidence of prolapse. Bimanual examination is negative for mass or tenderness. RECTAL EXAM: Rectovaginal exam is negative for mass or tenderness and is negative for occult blood. EXTREMITIES: Nontender. IMPRESSION: 1. 65-year-old menopausal female status post DIAMOND for benign reasons with normal gynecologic exam. 2. Vaginal dryness with intercourse secondary to genital atrophy. 3. History of osteopenia. PLAN: 1. Pap smears have been discontinued. 2. Self breast awareness was discussed with the patient. We have also discussed symptoms associated with inflammatory breast cancer. 3. Screening mammogram will be done today. 4. Osteoporosis prevention was discussed. I have stressed the importance of adequate calcium, vitamin D and regular exercise. Recommended amounts of calcium and vitamin D were also discussed. I recommended repeating bone density testing. She would like to wait until next year. 5. Continue Premarin vaginal cream 1 g into the vagina 2 times weekly. The [facility] prescription [facility] in [place]. 6. She did receive her ovary did vaccination, Gustavo and Gustavo. 7. She was advised to return in one year for her annual well woman exam.
--- NOTE | 2021-05-10 10:11 | MM ---
Reason for exam: screening (asymptomatic). Last mammogram was performed 1 year ago. History: Patient is postmenopausal. Family history of premenopausal breast cancer in mother and breast cancer in aunt. Benign core biopsy, September 15, 1997. Benign stereotactic core biopsy of the left breast, September 15, 1997. Physical Findings: A clinical breast exam by your physician is recommended on an annual basis and results should be correlated with mammographic findings. MG Screening Mammo w CAD Bilateral CC and MLO view(s) were taken. Prior study comparison: May 02, 2020, bilateral MG screening mammo w CAD. March 30, 2019, bilateral MG screening mammo w CAD. There are scattered fibroglandular densities. No significant changes when compared with prior studies. ASSESSMENT: Benign, BI-RAD 2 RECOMMENDATION: Routine screening mammogram of both breasts in 1 year.
== END ==
LOC: WWCWWP 13:28
PROVIDERS: ATTEND Obstetrics & Gynecology
DX: Z12.31 Encounter for screening mammogram for malignant neoplasm of breast (principal); Z01.419 Encounter for gynecological examination (general) (routine) without abnormal findings; N90.5 Atrophy of vulva; N89.8 Other specified noninflammatory disorders of vagina; J44.9 Chronic obstructive pulmonary disease, unspecified; M19.90 Unspecified osteoarthritis, unspecified site; Z87.39 Personal history of other diseases of the musculoskeletal system and connective tissue; Z87.891 Personal history of nicotine dependence; Z90.710 Acquired absence of both cervix and uterus; Z80.3 Family history of malignant neoplasm of breast
CPT/HCPCS: 77067

== ENCOUNTER → 2022-01-31 | Outpatient (CLI) | payer OTHER ==
[2022-01-31 08:49] LABS: African American GFR (CKD) >90 (>60 ml/min/1.73 sqM); Blood Urea Nitrogen 10 mg/dL (7-17); Non-African American GFR(CKD) >90 (>60 ml/min/1.73 sqM)
--- NOTE | 2022-01-31 10:32 | CT ---
EXAMINATION TYPE: CT abdomen pelvis w con DATE OF EXAM: 01/31/2022 COMPARISON: None available HISTORY: Left lower quadrant pain, fatigue and abnormal weight loss CT DLP: 496.5 mGycm Automated exposure control for dose reduction was used. TECHNIQUE: Helical acquisition of images was performed from the lung bases through the pelvis. CONTRAST: Performed with Oral Contrast and with IV Contrast, patient injected with 100 mL of Isovue 300. FINDINGS: LUNG BASES: COPD changes. LIVER/GB: Previous cholecystectomy. Suspected tiny cyst at the lateral aspect of the right hepatic lo be, otherwise no definite hepatic focal lesion. The CBD measures 8 mm likely related to postcontrast status. PANCREAS: No significant abnormality is seen. SPLEEN: No significant abnormality is seen. ADRENALS: No significant abnormality is seen. KIDNEYS: Left renal cyst without suspicious feature, otherwise unremarkable kidneys. FREE AIR: No free air is visualized. RETROPERITONEAL ADENOPATHY: None visualized REPRODUCTIVE ORGANS: Obscured by artifacts from hip prosthesis. URINARY BLADDER: Obscured by artifacts from hip prosthesis. PELVIC ADENOPATHY: None visualized. OSSEOUS STRUCTURES: Bilateral total hip arthroplasty. Degenerative changes of the lumbar spine most evident at L3-4 level. BOWEL: Unremarkable nondistended stomach, duodenum and small bowel. Colonic diverticulosis most evid ent involving the sigmoid colon. No gross colonic mass however a small lesion cannot be excluded, ple ase correlate with colonoscopy results. OTHER: Arterial atherosclerotic calcifications. No sizable ascites. IMPRESSION: Pelvic artifacts. Colonic diverticulosis without evidence of acute diverticulitis. No gross suspiciou s lesion seen in the abdomen or the pelvis. Incidental findings and recommendation as described above .
== END | disposition home or self-care (01) ==
LOC: RADCTMAIN 07:18
PROVIDERS: ATTEND Family Medicine
DX: K57.30 Diverticulosis of large intestine without perforation or abscess without bleeding (principal)
CPT/HCPCS: 82565; 84520; 74177; 36415; Q9967

== ENCOUNTER 2022-02-22 11:49 | Day surgery (SDC) | payer OTHER ==
[2022-02-21 09:26] VITALS: BMI 23.0
[~2022-02-22 11:49] MED LIST changes: -ACETAMINOPHEN TAB 500 MG TAB PO ONE; -GABAPENTIN 300 MG CAP PO ONE; +LACTATED RINGERS 1,000 ML IV SCH; +LIDOCAINE 1% (10MG/ML) FOR IV START INTRADERMA PRN; -LIDOCAINE 1% 20 ML VIAL (10MG/ML) FOR IV START INTRADERMA PRN; -MELOXICAM 7.5 MG TAB PO ONE; -MIDAZOLAM 2 MG/2 ML VIAL IV PRN; -TRANEXAMIC ACID 1,000 MG in SODIUM CHLORIDE 0.9% 100 ML IVPB ONE
[2022-02-22] MEDS ORDERED: LACTATED RINGERS 1,000 ML IV ONE (12:46)
[2022-02-22 12:47] VITALS: TEMP 97
[2022-02-22] MEDS ORDERED: PROPOFOL 10 MG/ML 20 ML VIAL IV ONE (13:36)
--- NOTE | 2022-02-22 13:55 | P.PCN ---
Date of Procedure: 02/22/22 Procedure(s) Performed: BRIEF HISTORY: Patient is a 66-year-old pleasant white female scheduled for an elective colonoscopy as a part of evaluation of prior history of colon polyps. Last colonoscopy was 5 years ago. PROCEDURE PERFORMED: Colonoscopy with biopsy PREOPERATIVE DIAGNOSIS: History of colon polyps. IV sedation per Anesthesia. PROCEDURE: After informed consent was obtained, the patient, was brought into the endoscopy unit. IV sedation was administered by Anesthesia under continuous monitoring. Digital rectal examination was normal. Initially the Olympus CF-160 flexible video colonoscope was then inserted in the rectum, gradually advanced into the cecum without any difficulty. Careful examination was performed as the scope was gradually being withdrawn. Ileocecal valve and the appendiceal orifice were visualized and appeared normal. Prep was excellent. Mucosa of the cecum, ascending colon, appeared normal. The transverse colon there was a 3-4 mm sessile polyp removed by cold biopsy. Rest of the transverse colon, descending colon, sigmoid colon, and rectum appeared normal. Retroflexion was performed in the rectum and no lesions were seen. The patient tolerated the procedure well. IMPRESSION: 3-4 mm sessile transverse colon polyp status post cold biopsy Diffuse scattered diverticulosis RECOMMENDATIONS: Findings of this examination were discussed with the patient as her family. She was advised to follow with the biopsy results. If the biopsy reveals adenoma she can have a repeat colonoscopy in 5 years..
[2022-02-22 14:01] VITALS: RESP 16
[2022-02-22 14:08] VITALS: PULSE 61
[2022-02-22 14:24] VITALS: BP 151/67
== END 2022-02-22 14:52 | disposition home or self-care (01) ==
LOC: ORWHC2ENDO 11:49
PROVIDERS: ATTEND Internal Medicine Gastroenterology
DX: D12.3 Benign neoplasm of transverse colon (principal); K57.30 Diverticulosis of large intestine without perforation or abscess without bleeding; J44.9 Chronic obstructive pulmonary disease, unspecified; Z87.891 Personal history of nicotine dependence; Z79.899 Other long term (current) drug therapy; Z79.51 Long term (current) use of inhaled steroids; Z90.710 Acquired absence of both cervix and uterus
CPT/HCPCS: 88305; 45380; J2704

== ENCOUNTER → 2022-06-18 | Outpatient (CLI) | payer OTHER ==
[2022-06-18 09:24] VITALS: BP 146/75; PULSE 70; RESP 18; TEMP 98.2
--- NOTE | 2022-06-18 10:04 | P.HPOB ---
History of Present Illness H&P Date: 06/18/22 Chief Complaint: The patient is here for her routine gynecologic exam and ma mmogram. This is a 66-year-old with an LMP of 1993. She is status post DIAMOND for benign reasons. She continues to have vaginal dryness and occasional post coital spotting. She filled the prescription for estradiol vaginal cream but did not use it regularly and has not used it recently because of the cost. She states she would like to restart it and she states she will use it more regularl y. She is otherwise without gynecologic complaints. Review of Systems The patient has gained 4 pounds over the last year. She denies respiratory, cardiac, or G.I. problems. Past Medical History Past Medical History: COPD, Osteoarthritis (OA) Additional Past Medical History / Comment(s): Varicose veins, arthritis, nodule on rt lung. Osteopenia. 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 History of Any Multi-Drug Resistant Organisms: None Reported Past Surgical History: Appendectomy, Section, Cholecystectomy, Hysterectomy, Joint Replacement, Orthopedic Surgery, Tonsillectomy Additional Past Surgical History / Comment(s): DIAMOND BILATERAL SALPINGECTOMY (not oophorectomy)1993, BL hip replacements. Knee and shoulder surgery. Colonoscopy 2021(3rd, next 5 yrs). Past Anesthesia/Blood Transfusion Reactions: No Reported Reaction Additional Past Anesthesia/Blood Transfusion Reaction / Comment(s): States BP dropped with last surgery. Past Psychological History: No Psychological Hx Reported Smoking Status: Former smoker Past Alcohol Use History: Occasional (0-6 per month.) Additional Past Alcohol Use History / Comment(s): Quit 1998 smoking,started smoking at age 13 ,2ppd Past Drug Use History: None Reported Additional History: She has been since 1983 and is sexually active. She is retired. - Past Family History Mother Family Medical History: Cancer Additional Family Medical History / Comment(s): Breast and lung cancer. Mother's twin sister had breast cancer Medications and Allergies Home Medications Medication Instructions Recorded Confirmed Type Tiotropium Devers [Spiriva] 1 cap INHALATION RT-DAILY 10/25/14 06/18/22 History Budesonide-Formot 160-4.5 Mcg 2 puff INHALATION RT-BID 04/07/17 06/18/22 History [Symbicort 160-4.5 Mcg Inhaler] Albuterol Inhaler [Ventolin Hfa 1 - 2 puff INHALATION RT-Q6H PRN 05/21/19 06/18/22 History Inhaler] Meloxicam [Mobic] 7.5 mg PO DAILY 02/21/22 06/18/22 History Calcium Carbonate/Vitamin D3 1 tab PO DAILY 06/18/22 06/18/22 History [Calcium 250-D Tablet] Allergies Allergy/AdvReac Type Severity Reaction Status Date / Time No Known Allergies Allergy Verified 06/18/22 09:19 Exam Vital Signs Temp Pulse Resp BP Pulse Ox 06/18/22 09:20 98.2 F 70 18 146/75 99 Intake and Output 06/17/22 06/18/22 06/18/22 22:59 06:59 14:59 Other: Weight 65.771 kg Height 5 feet 6 inches, weight 145 pounds, BMI 23.4. This is a well-developed well-nourished white female who is alert and oriented times 3 in no acute distress. HEENT: Within normal limits. NECK: Supple without mass or thyromegaly. CHEST AND LUNGS: Clear to auscultation. HEART: Regular rate and rhythm. BREASTS: Are without mass or discharge. AXILLARY EXAM: Negative for adenopathy. BACK: Negative for CVA tenderness. ABDOMEN: Soft, nontender, without palpable masses. PELVIC EXAM: External genitalia appears normal with moderate atrophy. Vagina appears normal with moderate atrophy. There is no evidence of prolapse. Bimanual examination is negative for mass or tenderness. RECTAL EXAM: Rectovaginal exam is negative for mass or tenderness and is negative for occult blood. EXTREMITIES: Nontender. IMPRESSION: 1. 66-year-old menopausal female status post DIAMOND for benign reasons, with normal gynecologic exam. 2. Vaginal dryness and occasional postcoital spotting secondary to genital atrophy. Vaginal exam was unremarkable other than atrophy. 3. History of osteopenia. PLAN: 1. Pap smears have been discontinued. 2. Self breast awareness was discussed with the patient. We have also discussed symptoms associated with inflammatory breast cancer. 3. Screening mammogram will be done today. 4. Osteoporosis prevention was discussed. I have stressed the importance of adequate calcium, vitamin D and regular exercise. Recommended amounts of calcium and vitamin D were also discussed. Bone density testing will be done today. 5. She has gotten her Covid vaccination and has received a booster. She is a auguste that additional boosters are available. 6. She would like a new prescription for the estradiol vaginal cream. She will insert 1 g into the vagina 2 times weekly. The electronic prescription will be sent to [facility] pharmacy in [place]. 7. She was advised to return in one year for her annual well woman exam.
--- NOTE | 2022-06-18 12:33 | BD ---
EXAMINATION TYPE: Axial Bone Density DATE OF EXAM: 06/18/2022 COMPARISON: NONE CLINICAL HISTORY: 66 years year old Female. ICD-10 CODE: Z780 POST RICARDO WITHOUT HRT Height: 5'5 1/2 Weight: 143 FRAX RISK QUESTIONS: Secondary Osteoporosis: RISK FACTORS HISTORY OF: Surgery to Spine/Hip(right/left)/: total hips When: 2019 Postmenopausal woman: y MEDICATIONS: Additional Medications: arthritis. Lungs, Additional History: arthritis, EXAM MEASUREMENTS: Bone mineral densitometry was performed using the Loccie System. Bone mineral density as measured about the Lumbar spine is: ----- L1-L4(G/cm2): 1.429 T Score Values are as follows: ----- L1: 0.2 ----- L2: 0.4 ----- L3: 3.4 ----- L4: 4.1 ----- L1-L4:2.1 Bone mineral density has: Increased 12.2% since study of: 02/17/2018 Bone mineral density about the L Wrist (g/cm2): 0.262 T Score values are as follows: -----Dist. R+U: -4.5 -----Prox. R+U: -4.0 -----Radius total: -5.1 IMPRESSION: Osteoporosis (T Score less than -2.5). There is increased fracture risk and therapy is usually indicated based on age. Re-Screen 1-2 years. NOTE: T-SCORE=SD OF THE YOUNG ADULT MEAN.
--- NOTE | 2022-06-19 09:56 | MM ---
Reason for Exam: Screening (asymptomatic). Last mammogram was performed 1 year(s) and 2 month(s) ago. Patient History: Menarche at age 11. First Full-Term at age 28. Late child-bearing (after 28). Hysterectomy at age 38. Postmenopausal. 09/15/1997, Benign Stereotactic Core Biopsy on the left side. Benign Core Biopsy. Maternal aunt had breast cancer. Mother had breast cancer. Risk Values: Jeanie 5 year model risk: 5.1%. NCI Lifetime model risk: 15.9%. Prior Study Comparison: 03/30/2019 Bilateral Screening Mammogram, [facility]. 05/02/2020 Bilateral Screening Mammogram, [facility]. 05/08/2021 Bilateral Screening Mammogram, [facility]. Tissue Density: There are scattered fibroglandular densities. Findings: Analyzed By CAD. There is no suspicious group of microcalcifications or new suspicious mass in either breast. Stable chronic nodularity left breast likely related to a small lymph node. Benign calcification right breast. Overall Assessment: Benign, BI-RAD 2 Management: Screening Mammogram of both breasts in 1 year. A clinical breast exam by your physician is recommended on an annual basis and results should be correlated with mammographic findings. Electronically signed and approved by: Ankur Singer M.D. Radiologis
--- NOTE | 2022-06-20 11:39 | P.PN ---
Progress Note - Text Progress Note Date: 06/20/22 OUTPATIENT FOLLOW-UP NOTE TEST(S)/RESULTS: Test results from 06/18/2022 include benign mammogram and bone density test showing osteoporosis. METHOD OF NOTIFICATION: She was notified by phone. PATIENT COMMENTS: The patient would like to go without osteoporosis medication at this time. DIAGNOSIS: Benign mammogram and osteoporosis. DISCUSSION: The bone density test did not do measurements because of her bilateral hip Gonzalez. They did do measurements from the left radius/wrist which when the osteoporosis range. We have discussed how this may mean she is at greater risk for bone fracture. We have discussed medications and bisphosphonates were offered to the patient. She would like to go without medication at this time. I have stressed the importance of adequate calcium, vitamin D, and regular exercise. I have also stressed the importance of taking precautions to avoid falling. She will call if she changes her mind about prescription medications for osteoporosis. We will plan on repeating the bone density testing in 2 years. PLAN: As above.
== END ==
LOC: WWCWWP 09:10
PROVIDERS: ATTEND Obstetrics & Gynecology
DX: Z12.31 Encounter for screening mammogram for malignant neoplasm of breast (principal); M81.0 Age-related osteoporosis without current pathological fracture; Z90.710 Acquired absence of both cervix and uterus; E66.9 Obesity, unspecified; Z68.23 Body mass index [BMI] 23.0-23.9, adult
CPT/HCPCS: 77067; 77080

== ENCOUNTER → 2022-08-16 | Outpatient (CLI) | payer OTHER ==
--- NOTE | 2022-08-16 15:23 | PE ---
EXAMINATION TYPE: PET CT fusion skull to thigh DATE OF EXAM: 08/16/2022 COMPARISON: CT abdomen and pelvis January 31, 2022 HISTORY: Solitary pulmonary nodule, abnormal CT TECHNIQUE: Following the intravenous administration of 9.97 mCi of F-18 FDG, whole body images are p erformed from the skull base to the midthigh. Images are reviewed on the computer in the coronal, ax ial, and sagittal planes. Reconstructed rotating images are created on independent workstation and r eviewed on the computer. A localization and attenuation correction CT is performed in conjunction w ith the PET scan. Blood glucose level equals 76. SCAN: Initial Scan FINDINGS: SKULL BASE AND NECK: No areas of abnormal hypermetabolic uptake. CHEST, MEDIASTINUM, AND HILAR REGION: Background Mild to moderate underlying emphysematous change. Pe rsistent spiculated 1.6 x 1.2 cm posterior right middle lobe nodule axial image 102 has abnormal hype rmetabolic uptake, max SUV is 4.23. No additional areas of abnormal hypermetabolic uptake in either lung or in the hilar region or medias tinum. ABDOMEN AND PELVIS: Normal excretion is present. No adrenal masses. Mild nonspecific right-sided umm l uptake. No definitive abnormal hypermetabolic uptake. OSSEOUS STRUCTURES: No definitive abnormal hypermetabolic uptake. OTHER CT: Mild calcified plaque left carotid bulb. Ascending aortic aneurysm up to 4.1 cm axial image 90. Cholecystectomy clips are present. Diverticula in the left and sigmoid colon are seen. Metallic artifact from bilateral hip arthroplasty causes streak artifact somewhat limiting evaluation of pelvic structures. There is persistent multilevel facet arthropathy and disc space narrowing. Mos t prominent disc space narrowing left L3-L4 level is again seen. Slight scoliotic curvature noted. IMPRESSION: Abnormal hypermetabolic uptake in the peripheral 1.6 cm right middle lobe nodule worrisom e for neoplasm. No suspicious adenopathy or metastatic disease seen.
== END | disposition home or self-care (01) ==
LOC: RADPETMAIN 09:47
PROVIDERS: ATTEND Internal Medicine Critical Care Medicine
DX: R91.8 Other nonspecific abnormal finding of lung field (principal)
CPT/HCPCS: 78815; A9552

== ENCOUNTER → 2022-09-05 | Outpatient (CLI) | payer OTHER ==
[2022-09-05 15:00] LABS: INR 0.9 (<1.2); Partial Thromboplastin Time 25.1 sec (22.0-30.0); Prothrombin Time 9.5 sec (9.0-12.0)
[2022-09-05 22:26] LABS: Basophils # (A) 0.05 X 10*3/uL (0.00-0.10); Basophils % (A) 0.5 %; Eosinophils # (A) 0.13 X 10*3/uL (0.04-0.35); Eosinophils % (A) 1.2 %; HCT 38.7 % (37.2-46.3); HGB 13.7 g/dL (12.0-15.0); Immature Grans, Automated 0.4 %; Lymphocytes # (A) 1.93 X 10*3/uL (0.90-5.00); MCH 32.4 pg (27.0-32.0); MCHC 35.4 g/dL (32.0-37.0); MCV 91.5 fL (80.0-97.0); Mean Platelet Volume 9.8 fL (9.5-12.2); Monocytes # (A) 0.74 X 10*3/uL (0.20-1.00); Monocytes % (A) 6.9 %; NRBC Per 100 WBC 0 /100 WBCS (0.0-0.0); Neutrophils # (A) 7.84 X 10*3/uL (1.80-7.70); Platelet Count 305 X 10*3/uL (140-440); RBC 4.23 X 10*6/uL (4.10-5.20); RDW 13.1 % (11.5-14.5); WBC 10.73 X 10*3/uL (4.50-10.00)
[2022-09-05 23:26] LABS: African American GFR (CKD) 108.3 (60.0-200.0); Anion Gap 14.8 mmol/L (10.00-18.00); Carbon Dioxide 22.3 mmol/L (20.0-27.5); Non-African American GFR(CKD) 93.5 (60.0-200.0); Potassium 4.1 mmol/L (3.5-5.5)
== END | disposition home or self-care (01) ==
LOC: LABPAT 12:43
PROVIDERS: ATTEND Thoracic Surgery (Cardiothoracic Vascular Surgery)
DX: Z01.812 Encounter for preprocedural laboratory examination (principal)
CPT/HCPCS: 80051; 82565; 82947; 84520; 85025; 85610; 85730; 93005

== ENCOUNTER 2022-09-12 06:06 | Inpatient (IN) | payer OTHER ==
[2022-09-10 09:40] VITALS: BMI 21.9
[2022-09-12] MEDS ORDERED: LACTATED RINGERS 1,000 ML IV SCH (06:44)
[2022-09-12] MEDS ORDERED: DEXAMETHASONE SOD PHOSPHATE 4 MG/ML 1 ML VIAL IV ONE (06:44)
[2022-09-12] MEDS ORDERED: ONDANSETRON 4 MG/2 ML VIAL IVP ONE ×2 (06:44→07:32)
[2022-09-12] MEDS ORDERED: LACTATED RINGERS 1,000 ML IV ONE ×4 (06:48→11:29)
[2022-09-12] MEDS ORDERED: MIDAZOLAM 2 MG/2 ML VIAL IVP ONE ×2 (07:32→08:10)
[2022-09-12] MEDS ORDERED: ePHEDrine 50 MG/ML 1 ML VIAL ONE (08:10)
[2022-09-12] MEDS ORDERED: PROPOFOL 10 MG/ML 20 ML VIAL IV ONE (08:10)
[2022-09-12] MEDS ORDERED: MIDAZOLAM 2 MG/2 ML VIAL ONE (08:10)
[2022-09-12] MEDS ORDERED: SUCCINYLCHOLINE CHLORIDE 200 MG/10 ML VIAL IV ONE (08:10)
[2022-09-12] MEDS ORDERED: GLYCOPYRROLATE 0.2 MG/ML 2 ML VIAL ONE (08:10)
[2022-09-12] MEDS ORDERED: ROPIVACAINE 5 MG/ML 30 ML VIAL ONE (08:10)
[2022-09-12] MEDS ORDERED: PHENYLEPHRINE-0.9% NACL SYG 1,000 MCG/10 ML SYRINGE ONE (08:10)
[2022-09-12] MEDS ORDERED: NEOSTIGMINE 1 MG/ML 10 ML VIAL ONE (08:10)
[2022-09-12] MEDS ORDERED: ROCURONIUM 10 MG/ML (5 ML VIAL) IV ONE (08:10)
[2022-09-12] MEDS ORDERED: LABETALOL 5 MG/ML VIAL MDV ONE (08:10)
[2022-09-12] MEDS ORDERED: fentaNYL (PF) 50 MCG/ML 2 ML AMP ONE (08:10)
[2022-09-12] MEDS ORDERED: HYDROmorphone (PF) 1 MG/ML ONE (08:10)
--- NOTE | 2022-09-12 08:24 | P.ANPRN ---
Procedure Note - Anesthesia - Nerve Block Performed Right Erector Spinae Single Time Out Performed: Yes ([id number]) Date of Procedure: 09/12/22 Procedure Start Time: 07:33 Procedure Stop Time: 07:36 Location of Patient: PreOp Indication: Acute Post-Operative Pain, Requested by Surgeon Specifically requested for management of pain by DrTod: Seven Soares Sedation Type: Sedate with meaningful contact maintained Preparation: Sterile Prep Position: Sitting Catheter: None Needle Types: Pajunk Needle Gauge: 21 Ultrasound used to visualize needle placement: Yes Ultrasound used to observe medication spread: Yes Injectate: 0.5% Ropivacaine (see comment for volume) (30cc) Blood Aspirated: No Pain Paresthesia on Injection Noted: No Resistance on Injection: Normal Image Stored and Saved: Yes Events: Uneventful and Well Tolerated
--- NOTE | 2022-09-12 08:26 | P.ANPRN ---
Procedure Note - Anesthesia - Invasive Line Left Arterial Line Time Out Performed: Yes ([id number]) Date of Procedure: 09/12/22 Time of Procedure: 07:56 Location of Patient: PreOp Preparation: Sterile Prep, Sterile Dressing Arterial Line Location: Briachial (left) Ultrasound Used: Yes Purpose - Visualization and Identification of Vasculature: Yes Needle Guage: 20g Image Stored and Saved: Yes Narrative: Central line placement per sterile protocol utilized. attempts x4. small thready vessel. Success 3 in below antecubital fossa of left brachial. Attempt x 3 left radial. Patient tolerated procedure well
[2022-09-12] MEDS ORDERED: BUPIVACAINE (PF) 0.5% 30 ML VIAL SQ ONE ×3 (09:34→09:57)
--- NOTE | 2022-09-12 11:36 | P.OP ---
Date of Procedure: 09/12/22 Preoperative Diagnosis: Right middle lobe mass consistent with primary lung cancer Postoperative Diagnosis: Non-small cell carcinoma right middle lobe Procedure(s) Performed: Robotic-assisted, thoracoscopic right middle lobe wedge resection with on table diagnosis and right middle lobectomy and mediastinal lymph node dissection Anesthesia: CHEKO Surgeon: [employer] Computer Software Engineer #1: Ankur Ho Estimated Blood Loss (ml): 15 IV fluids (ml): 1,000 Urine output (ml): 500 Pathology: other (Wedge resection right middle lobe sent for frozen section. Permanent sections of right middle lobe; lymph node stations R4, R8, R9, R10, R11, level 7.) Condition: stable Disposition: PACU Indications for Procedure: 66-year-old female with new spiculated mass in the right middle lobe peripherally with marketed positivity on PET scan. No evidence for metastasis by CT or PET criteria. Patient was offered biopsy versus primary surgery and preferred to go with primary surgery. Operative Findings: Small nodule in the right middle lobe peripherally with likely involvement of the visceral pleura in the fissure between the middle and lower lobe. The pleura was entered. Generous wedge resection was performed and frozen section showed non-small cell carcinoma. Greater and lesser fissures were both incomplete. There was a fair amount of benign-appearing anthracotic adenopathy present both in the mediastinal and hilar regions. Description of Procedure: Patient was brought to the operating room, placed supine on the operating table, anesthetized and intubated with a double-lumen endotracheal tube. Tube was positioned with fiberoptic bronchoscopy. No endobronchial lesions were noted. Patient was turned in the left lateral decubitus position and appropriately positioned for robotic right sided lobectomy. The right chest was sterilely prepped and draped. Initial incision was made in the axillary line in the eighth interspace. An 8 mm robotic port was placed here. Thoracoscopy demonstrated placement within the pleural space and CO2 insufflation was begun. 212 mm ports were placed anterior and posterior this initial port. Second 8 mm port was placed posteriorly near the superior segment of the lower lobe. Thoracoport was placed between the 2 most anterior cortical level of the diaphragm. The robot was docked and began with a wedge resection of the tumor in the right upper lobe. Multiple firings of a robotic loop 45 stapler were performed. Specimen was placed in an Endo Catch bag and removed from the field and sent for frozen section. We now began gentle dissection in the fissures but were unable to complete the. The fissures were marked. We took down the inferior pulmonary ligament. This point the specimen returned positive for non- small cell carcinoma. Continued dissection posteriorly and dissected out the R8 and level 7 lymph nodes. These were sent for permanent section. Dissection was carried anteriorly and the superior pulmonary vein was identified. Lymph nodes at the base of the superior pulmonary vein were resected and sent as R 10 lymph nodes. Branch draining the middle lobe was dissected out and ligated and divided with a robotic vascular stapler. Dissection was carried deeper into the fissure at this level and the bronchus was encountered. There was considerable anthracotic lymphadenopathy around this and these were resected and sent for permanent section as R 11 lymph nodes. We were able to encircle the middle lobe bronchus and ligated and divided with robotic green stapler. Pulmonary artery was now dissected out behind the bronchus. Small branch inferiorly which was taken with a robotic vascular stapler. Further dissection revealed the larger branches leading to the middle lobe more proximally and this was also dissected out and ligated and divided with a robotic stapler. Multiple firings of multiple staplers were now performed in order to complete the fissures both infe riorly and the greater fissure and superiorly and the lesser fissure. This proceeded uneventfully and lobectomy specimen was successfully freed with excellent anatomic dissection. The specimen was placed in an Endo Catch bag and sent for permanent section. We now dissected out the R4 lymph nodes above the azygos vein and then dissected below the azygos vein and dissected out further R 10 lymph nodes. All of these were sent for permanent section. We now undocked the robot. We irrigated the chest with sterile water and inflated the lung under direct vision. The bronchial staple line appeared good. There was some leak from the dissection particularly in the lesser fissure. 28-Uzbek chest tube was placed through separate stab incision and positioned posterior apically. It was secured with 0 Ethibond suture. The lung was fully inflated under thoracoscopic visualization after suctioning free the irrigation fluid. Chest tube was connected to the Pleur-evac and the incisions were closed with layers of Vicryl suture. Posterior rib blocks of half percent Marcaine were performed at the levels of the incisions. Skin glue and dry sterile dressings were applied. Patient was extubated and transferred to recovery in stable condition.
[2022-09-12] MEDS: HYDROmorphone 0.5 MG/0.5 ML SYRINGE IVP PRN ×2 (11:49→13:28)
--- NOTE | 2022-09-12 12:52 | XR ---
EXAMINATION TYPE: XR chest 1V portable DATE OF EXAM: 09/12/2022 Comparison: 08/20/2018 Clinical History: 66-year-old female post lobectomy Findings: Mild interstitial density in the lower lungs. Hyperinflation suggesting underlying emphysema. Heart u pper limits of normal in size. Atherosclerotic arch calcifications. There is a trace 2 mm right apica l pneumothorax with right-sided chest tube in place. Impression: A trace 2 mm right apical pneumothorax with chest tube in place. Mild patchy densities in the lower l ungs, probably postprocedural atelectasis rather than infiltrates.
[2022-09-12] MEDS ORDERED: KETOROLAC 15 MG/ML 1 ML VIAL IVP ONE (14:59)
--- NOTE | 2022-09-12 16:25 | P.CNPUL ---
History of Present Illness Consult date: 09/12/22 Reason for consult: lung mass History of present illness: This is a 66-year-old female patient underwent a lobectomy for right middle lobe mass. The patient was found to have a speedy related density/nodules 2 cm in size and the PET scan was an avid and the lesion was metabolically active. Based on that, the patient was referred to thoracic surgery. There was no evidence of lymphadenopathy. The lesion was peripheral. The patient has phil quate pulmonary function testing and the patient underwent lobectomy. Surgery was done today and the patient is currently postop day #0. This was a robotic- assisted thoracoscopic right middle white resection and subsequent right middle lobe resection with mediastinal lymph node dissection. The patient has a single right-sided chest tube. No evidence of any air leak. Total amount of output is in order of 70 mL since arrival from the operating room and the chest x-ray postop shows adequate expansion of the right lung and there is probably a tiny pneumothorax on the right. Otherwise, no other significant abnormalities noted and the patient is currently on room air oxygen. The patient was seen in the recovery. No need for a computed tomography scan medical surgical floor. The patient is hemodynamically stable. The patient received Dilaudid for pain control.. No altered mentation. The patient is awake and alert. Review of Systems All systems: negative (The patient was in recovery room. No altered mentation. No significant pain or shortness of breath and the patient's is on room air oxygen.) Past Medical History Past Medical History: Cancer, COPD, Musculoskeletal Disorder, Osteoarthritis (OA) Additional Past Medical History / Comment(s): Right middle lobe mass, Varicose veins. Osteopenia. History of Any Multi-Drug Resistant Organisms: None Reported Past Surgical History: Appendectomy, Section, Cholecystectomy, Joint Replacement, Orthopedic Surgery, Tonsillectomy Additional Past Surgical History / Comment(s): Partial hysterectomy - bilateral salpingectomy(no oophorectomy), bilateral hip replacements, knee surgery, shoulder surgery, colonoscopy X3. Past Anesthesia/Blood Transfusion Reactions: Previous Problems w/ Anesthesia Additional Past Anesthesia/Blood Transfusion Reaction / Comment(s): States BP dropped with last surgery(hip replacement). Past Psychological History: No Psychological Hx Reported Smoking Status: Former smoker Past Alcohol Use History: Occasional Additional Past Alcohol Use History / Comment(s): Quit smoking in 1998, started smoking at age 13, 2ppd. Past Drug Use History: None Reported - Past Family History Mother Family Medical History: Cancer Additional Family Medical History / Comment(s): Breast and lung cancer. Mother's twin sister had breast cancer. Medications and Allergies Home Medications Medication Instructions Recorded Confirmed Type Tiotropium [place] [Spiriva] 1 cap INHALATION QAM 10/25/14 09/12/22 History Budesonide-Formot 160-4.5 Mcg 2 puff INHALATION BID 04/07/17 09/12/22 History [Symbicort 160-4.5 Mcg Inhaler] Albuterol Inhaler [Ventolin Hfa 1 - 2 puff INHALATION Q6H PRN 05/21/19 09/12/22 History Inhaler] Meloxicam [Mobic] 7.5 mg PO DAILY 02/21/22 09/12/22 History Calcium Carbonate/Vitamin D3 1 tab PO DAILY 06/18/22 09/12/22 History [Calcium 250-D Tablet] Amoxicillin 1,000 mg PO Q12H 09/10/22 09/12/22 History Allergies Allergy/AdvReac Type Severity Reaction Status Date / Time No Known Allergies Allergy Verified 09/12/22 07:00 Physical Exam Vitals: Vital Signs Temp Pulse Resp BP Pulse Ox 09/12/22 16:00 84 18 146/60 97 09/12/22 15:15 92 17 126/54 96 09/12/22 14:45 91 17 132/64 98 09/12/22 14:15 89 16 118/59 95 09/12/22 13:45 85 16 125/60 97 09/12/22 13:15 80 16 127/61 94 L 09/12/22 13:00 81 16 134/60 93 L 09/12/22 12:45 97.4 F L 78 16 124/61 94 L 09/12/22 12:35 78 16 134/60 97 09/12/22 12:20 77 16 128/60 98 09/12/22 12:07 73 16 100 09/12/22 11:52 77 16 126/58 100 09/12/22 11:37 96.8 F L 81 16 131/60 100 09/12/22 07:07 98.2 F 101 H 16 147/85 99 Intake and Output 09/12/22 09/12/22 09/12/22 06:59 14:59 22:59 Intake Total 1650 100 Output Total 170 125 Balance 1480 -25 Intake: IV 1650 100 Output: Urine 120 125 Estimated Blood Loss 50 Other: Weight 61.2 kg The patient appeared well nourished and normally developed. Vital signs as documented. Head exam is unremarkable. No scleral icterus or corneal arcus noted. Neck is without jugular venous distension, thyromegaly, or carotid bruits. Carotid upstrokes are brisk bilaterally. Lungs are clear to auscultation and percussion. The patient has a right-sided chest tube in place. The chest was symmetric peripheral vascular disease. The patient is currently on room air oxygen. Cardiac exam reveals the PMI to be normally sized and situated. Rhythm is regular. First and second heart sounds normal. No murmurs, rubs or gallops. Abdominal exam reveals normal bowel sounds, no masses, no organomegaly and no aortic enlargement. Extremities are nonedematous and both femoral and pedal pulses are normal. Neurologically, the patient is awake and alert and the patient does not have any focal neurological deficit. Cranial nerves are essentially intact. Examination of the skin revealed no evidence of significant rashes, suspicious appearing nevi or other concerning lesions. Results - Diagnostic Findings Chest x-ray: image reviewed Assessment and Plan Plan: Right middle lobe mass and the patient is post right middle lobe lobectomy, robotic-assisted addition to mediastinal lymph node dissection. The patient is currently postop day #0. Postthoracotomy and the patient has a right-sided chest tube in place. No evidence of any air leak. Tiny right apical pneumothorax is seen. COPD Ex-smoker the patient carries around [id number] smoking history. Plan Hemodynamically stable Provided patient's in the spirometer Dilaudid for pain control Albuterol nebulizer treatments on an as-needed basis for times a day Restart Symbicort and Spiriva as maintenance Heparin subcu portably prophylaxis Awaiting final pathology Daily chest x-ray We'll continue to follow a low lobe
[2022-09-12] MEDS ORDERED: IPRATROPIUM-ALBUTEROL 3 ML NEB IH PRN (17:39)
[2022-09-12] MEDS ORDERED: DEXTROSE 5%-0.45% NACL 1,000 ML IV SCH (17:39)
[2022-09-12] MEDS ORDERED: bisacodyL 10 MG SUPP RECTAL PRN (17:39)
[2022-09-12] MEDS ORDERED: ONDANSETRON 4 MG/2 ML VIAL IVP PRN (17:39)
[2022-09-12] MEDS ORDERED: traMADol 50 MG TAB PO SCH (18:00)
[2022-09-12] MEDS: HEPARIN SODIUM,PORCINE/PF 5,000 UNIT/0.5 ML SYRINGE SQ SCH ×2 (18:16→23:52)
[2022-09-12] MEDS: KETOROLAC 15 MG/ML 1 ML VIAL IVP SCH ×2 (18:20→23:52)
[2022-09-12] MEDS: IPRATROPIUM-ALBUTEROL 3 ML NEB IH SCH ×2 (18:57→19:48)
[2022-09-12] MEDS: SYMBICORT 160-4.5 MCG INHALER INHALATION SCH (19:48)
[2022-09-12] MEDS ORDERED: IPRATROPIUM-ALBUTEROL 3 ML NEB INHALATION SCH (20:00)
[2022-09-12] MEDS ORDERED: SYMBICORT 160-4.5 MCG INHALER INHALATION SCH (20:00)
[2022-09-12] MEDS: traMADol 50 MG TAB PO SCH (20:13)
[2022-09-13] MEDS ORDERED: HEPARIN SODIUM,PORCINE/PF 5,000 UNIT/0.5 ML SYRINGE SQ SCH
[2022-09-13] MEDS: PANTOPRAZOLE 40 MG TABLET PO SCH (04:05)
[2022-09-13] MEDS: traMADol 50 MG TAB PO SCH ×4 (04:05→20:01)
[2022-09-13] MEDS: KETOROLAC 15 MG/ML 1 ML VIAL IVP SCH ×4 (05:51→23:57)
[2022-09-13] MEDS: ACETAMINOPHEN TAB 500 MG TAB PO PRN ×3 (07:23→20:02)
[2022-09-13] MEDS: HEPARIN SODIUM,PORCINE/PF 5,000 UNIT/0.5 ML SYRINGE SQ SCH ×3 (07:24→23:57)
[2022-09-13] MEDS: CALCIUM CARB-VIT D 500 MG-5 MCG TAB PO SCH (07:24)
--- NOTE | 2022-09-13 08:21 | XR ---
EXAMINATION TYPE: XR chest 1V DATE OF EXAM: 09/13/2022 COMPARISON: 09/12/2022 INDICATION: Pneumothorax, post-VATS TECHNIQUE: Single frontal view of the chest is obtained. FINDINGS: The heart size is normal. The pulmonary vasculature is normal. There is a right-sided pneumothorax is minimal at the apex and somewhat larger along the diaphragm. R ight-sided chest tube is present. Extensive subcutaneous emphysema is present on the right. IMPRESSION: 1. Increasing right basilar pneumothorax. The right apical pneumothorax appears stable. 2. Increasing subcutaneous emphysema right lateral chest.
[2022-09-13 08:38] LABS: Basophils % (A) 0 %; Eosinophils # (A) 0.1 k/uL (0-0.7); Eosinophils % (A) 1 %; HCT 36.8 % (34.0-46.0); HGB 12.6 gm/dL (11.4-16.0); Lymphocytes # (A) 1.2 k/uL (1.0-4.8); Lymphocytes % (A) 13 %; MCH 31.5 pg (25.0-35.0); MCHC 34.3 g/dL (31.0-37.0); MCV 91.9 fL (80.0-100.0); Mean Platelet Volume 7.5; Monocytes # (A) 0.4 k/uL (0-1.0); Monocytes % (A) 4 %; Neutrophils # (A) 7.3 k/uL (1.3-7.7); Neutrophils % (A) 81 %; Platelet Count 285 k/uL (150-450); RBC 4.01 m/uL (3.80-5.40); RDW 12.9 % (11.5-15.5); WBC 9.1 k/uL (3.8-10.6)
[2022-09-13] MEDS: SYMBICORT 160-4.5 MCG INHALER INHALATION SCH ×2 (08:51→20:56)
[2022-09-13] MEDS: IPRATROPIUM-ALBUTEROL 3 ML NEB IH SCH ×4 (08:51→20:56)
[2022-09-13 08:53] LABS: African American GFR (CKD) >90 (>60 ml/min/1.73 sqM); Anion Gap 6 mmol/L; Blood Urea Nitrogen 12 mg/dL (7-17); Calcium 8.4 mg/dL (8.4-10.2); Carbon Dioxide 25 mmol/L (22-30); Chloride 100 mmol/L (98-107); Glucose 126 mg/dL (74-99); Non-African American GFR(CKD) >90 (>60 ml/min/1.73 sqM); Potassium 4.2 mmol/L (3.5-5.1); Sodium 131 mmol/L (137-145)
--- NOTE | 2022-09-13 09:18 | P.PN ---
Subjective Progress Note Date: 09/13/22 09/13/2022, the patient is sitting up on a chair and she is postop day #1. She is on room air oxygen. She still having some pain issues and she is using the incentive spirometer and she is falling approximately 1000. The chest tube is still in place. There is intermittent air leak. Output from the chest tube is minimal. The chest x-ray shows a very tiny right apical pneumothorax. Chest tube is in a good location. The patient has also developed some subcutaneous emphysema along the right chest area. The hemoglobin is at 12.6 which is stable, sodium is at 131, BUN is at 12 with a creatinine of 0.5 and she is hemodynamically stable at this point in time. The patient was also gout and ambulating in the hallway. Objective - Vital Signs Vital signs: Vital Signs Temp 97.8 F 09/13/22 07:47 Pulse 80 09/13/22 09:07 Resp 18 09/13/22 07:47 BP 123/74 09/13/22 07:47 Pulse Ox 94 L 09/13/22 07:47 FiO2 Intake & Output 09/12/22 09/13/22 09/13/22 18:59 06:59 18:59 Intake Total 1750 585 5 Output Total 295 200 Balance 1455 385 5 Weight 61.2 kg Intake: IV 1750 5 Invasive Line 4 5 Intake, IV Titration 100 Amount ceFAZolin 2 gm In Sodium 100 Chloride 0.9% 50 ml @ 100 mls/hr IVPB Q8H [facility] Rx#: [id number] Oral 485 Output: Drainage 200 Right Chest 200 Urine 245 Estimated Blood Loss 50 Other: Voiding Method Indwelling Catheter Toilet Toilet # Voids 1 - Exam The patient appeared well nourished and normally developed. Vital signs as documented. Head exam is unremarkable. No scleral icterus or corneal arcus noted. Neck is without jugular venous distension, thyromegaly, or carotid bruits. Carotid upstrokes are brisk bilaterally. Lungs are clear to auscultation and percussion. The patient has a right-sided chest tube in place. The chest was symmetric peripheral vascular disease. The patient is currently on room air oxygen. Cardiac exam reveals the PMI to be normally sized and situated. Rhythm is regular. First and second heart sounds normal. No murmurs, rubs or gallops. Abdominal exam reveals normal bowel sounds, no masses, no organomegaly and no aortic enlargement. Extremities are nonedematous and both femoral and pedal pulses are normal. Neurologically, the patient is awake and alert and the patient does not have any focal neurological deficit. Cranial nerves are essentially intact. Examination of the skin revealed no evidence of significant rashes, suspicious appearing nevi or other concerning lesions. - Labs CBC & Chem 7: 09/13/22 07:56 09/13/22 07:56 Labs: Abnormal Lab Results - Last 24 Hours (Table) 09/13/22 Range/Units 07:56 Sodium 131 L (137-145) mmol/L Creatinine 0.50 L (0.52-1.04) mg/dL Glucose 126 H (74-99) mg/dL Assessment and Plan Plan: Right middle lobe mass and the patient is post right middle lobe lobectomy, robotic-assisted addition to mediastinal lymph node dissection. The patient is currently postop day #1 Post surgical subcutaneous emphysema in the right Tiny right apical pneumothorax with intermittent air leak, currently on waterseal Postthoracotomy and the patient has a right-sided chest tube in place. No evidence of any air leak. Tiny right apical pneumothorax is seen. COPD Ex-smoker the patient carries around [id number] smoking history. Plan Hemodynamically stable Provided patient's in the spirometer Dilaudid for pain control Albuterol nebulizer treatments on an as-needed basis for times a day Restart Symbicort and Spiriva as maintenance Heparin subcu portably prophylaxis Awaiting final pathology Keep chest tube to waterseal Chest x-ray was reviewed Patient is doing well Daily chest x-ray We'll continue to follow
--- NOTE | 2022-09-13 10:32 | P.PN ---
Subjective Progress Note Date: 09/13/22 Principal diagnosis: Right middle lobe mass, frozen section showed non-small cell carcinoma. Past medical history significant for chronic obstructive pulmonary disease with a preoperative FEV1 84% of predicted value and a DLCO 57% of predicted value, osteoarthritis and remote history of nicotine dependence in which he quit smoking in 1998. POD #1 Robotic-assisted, thoracoscopic right middle lobe wedge resection with on table diagnosis and right middle lobectomy and mediastinal lymph node dissection. The patient was seen and examined in follow-up today 09/13/2022 at her bedside on the cardiac stepdown unit. She is awake, alert, oriented 3 and is in no acute distress. Denies any complaints of shortness of breath although was complaining of some pain to her chest tube insertion site currently rating her pain 5 out of 10 on the pain scale. Oxygen saturations are 94% on room air and she is achieving 1000 mL on her incentive spirometry with encouragement. Right pleural chest tube remains in place to low continuous wall suction at -20 cm H2O. Intermittent air leak with coughing. Draining thin serosanguineous drainage with 250 mL output since surgery. Small amount of subcutaneous emphysema present to her right lateral chest. Laboratory results and Chest x- ray was reviewed. The patient reports she has been up ambulating in her room with standby assistance from nursing staff. Remote telemetry showing normal sinus rhythm heart rate 77 BPM. Laboratory results this morning show a WBC count 9.1, hemoglobin 12.6, hematocrit 36.8, platelets 285, sodium 131, potassium 4.2, chloride 100, BUN 12, creatinine 0.50, glucose 126 and calcium 8.4. Objective - Vital Signs Vital signs: Vital Signs Temp 98.1 F 09/12/22 20:00 Pulse 80 09/13/22 04:00 Resp 16 09/13/22 04:00 BP 134/69 09/13/22 04:00 Pulse Ox 94 L 09/13/22 04:00 FiO2 Intake & Output 09/12/22 09/13/22 09/13/22 18:59 06:59 18:59 Intake Total 1750 585 Output Total 295 200 Balance 1455 385 Weight 61.2 kg Intake: IV 1750 Intake, IV Titration 100 Amount ceFAZolin 2 gm In Sodium 100 Chloride 0.9% 50 ml @ 100 mls/hr IVPB Q8H [facility] Rx#: [id number] Oral 485 Output: Drainage 200 Right Chest 200 Urine 245 Estimated Blood Loss 50 Other: Voiding Method Indwelling Catheter Toilet # Voids 1 - Exam CONSTITUTIONAL: Sitting up in bed on the cardiac stepdown unit, appears comfortable, cooperative, no apparent acute distress. HEENT: Neck is supple, no JVD, no lymphadenopathy. RESPIRATORY: Lungs sounds essentially clear throughout, diminished to his bilateral bases, right greater than left. Respirations are symmetrical and nonlabored. Currently on room air with oxygen saturations 94%. Able to achieve 1000 mL on her incentive spirometry. Strong cough. CARDIOVASCULAR: Regular rhythm and rate. S1 and S2 present, negative for S3, gallop or murmur. Knee-high sequential compression devices in place to her bilateral lower extremities. GASTROINTESTINAL: Abdomen soft, nontender, nondistended. Active bowel sounds present 4 quadrants. Tolerating diet. Passing flatus. No guarding or rigidity. GENITOURINARY: Continues to void. INTEGUMENTARY: Skin is warm and dry with no evidence of clubbing or cyanosis. Right chest incisions clean, dry and intact, dressings clean, dry and intact. MUSKULOSKELETAL: Able to move all extremities, strength equal bilaterally. PSYCHIATRIC: Alert and oriented to person place and time, appropriate affect, intact judgment and insight. INVASIVE LINES AND TUBES: Right pleural chest tube in place to low continuous wall suction -20 cm H2O. Intermittent air leak with coughing. Draining thin serosanguineous drainage with 250 mL output since surgery. - Labs CBC & Chem 7: 09/13/22 07:56 09/13/22 07:56 Assessment and Plan Assessment: 1. Right middle lobe mass, status post robotic-assisted thoracoscopic right middle lobe wedge resection, right middle lobectomy and on table diagnosis of non-small cell carcinoma 2. COPD with preoperative FEV1 84% predicted value and DLCO 57% of predicted v alue 3. Osteoarthritis 4. Remote history of nicotine dependence, quit smoking in 1998 Plan: 1. We will place her chest tube to waterseal this morning, continue to monitor for airleak resolution 2. Encourage use of her incentive spirometry 10 times every hour while awake. 3. Pain control per current when necessary orders. 4. Encourage increase in activity, out of bed for all meals. 5. GI and DVT prophylaxis. 6. Pathology results remain pending, continue to follow final pathology results. 7. Bronchodilator management per pulmonary/critical care service recomm endations. 8. Continue to follow daily chest x-rays. 9. More recommendations to follow based on patient's clinical course. Time with Patient: Greater than 30
[2022-09-14] MEDS: ACETAMINOPHEN TAB 500 MG TAB PO PRN ×3 (03:05→15:28)
[2022-09-14] MEDS: PANTOPRAZOLE 40 MG TABLET PO SCH (03:05)
[2022-09-14] MEDS: traMADol 50 MG TAB PO SCH ×5 (03:05→21:52)
[2022-09-14] MEDS: KETOROLAC 15 MG/ML 1 ML VIAL IVP SCH ×4 (06:09→23:49)
--- NOTE | 2022-09-14 07:13 | XR ---
EXAMINATION TYPE: XR chest 1V portable DATE OF EXAM: 09/14/2022 CLINICAL HISTORY: Difficulty breathing progress study. Postoperative right-sided partial pneumonecto my. TECHNIQUE: Single AP portable upright view of the chest is obtained. COMPARISON: Chest x-ray from one day earlier and older studies. FINDINGS: Persistent right-sided chest tube with tiny right apical pneumothorax. Extensive overlying subcutaneous emphysema redemonstrated. Background chronic emphysematous change with bibasilar opacit ies redemonstrated. Cardiac silhouette size stable and within normal limits. Osseous structures are i ntact. IMPRESSION: Stable tiny right apical pneumothorax with chest tube in place. Patchy bibasilar atelecta sis and/or developing infiltrate redemonstrated. No significant change from one day earlier.
[2022-09-14] MEDS: SYMBICORT 160-4.5 MCG INHALER INHALATION SCH ×2 (08:23→21:28)
[2022-09-14] MEDS: IPRATROPIUM-ALBUTEROL 3 ML NEB IH SCH ×4 (08:24→21:28)
[2022-09-14] MEDS: HEPARIN SODIUM,PORCINE/PF 5,000 UNIT/0.5 ML SYRINGE SQ SCH ×3 (08:46→23:49)
[2022-09-14] MEDS: CALCIUM CARB-VIT D 500 MG-5 MCG TAB PO SCH (08:48)
--- NOTE | 2022-09-14 08:54 | P.PN ---
Subjective Progress Note Date: 09/14/22 Principal diagnosis: Right middle lobe mass, frozen section showed non-small cell carcinoma. Past medical history significant for chronic obstructive pulmonary disease with a preoperative FEV1 84% of predicted value and a DLCO 57% of predicted value, osteoarthritis and remote history of nicotine dependence in which he quit smoking in 1998. POD #2 Robotic-assisted, thoracoscopic right middle lobe wedge resection with on table diagnosis and right middle lobectomy and mediastinal lymph node dissection. The patient was seen and examined in follow-up today 09/14/2022 at her bedside on the cardiac stepdown unit. She is laying in bed, is awake, alert, oriented 3 and is in no acute distress. Denies any complaints of shortness of breath although was complaining of some surgical type pain to her chest tube insertion site. She is currently rating her pain 6 or 7 out of 10 on the pain scale. She is also complaining of some leakage of fluid around her chest tube site occ asionally throughout the night. Oxygen saturation are 94% on room air and she is achieving 1250 mL on her incentive spirometry with encouragement. Right pleural chest tube remains in place to water seal, intermittent air leak with coughing. Draining thin serosanguineous drainage with 50 mL output in the last 24 hours. She has been up ambulating in the cardiac stepdown unit hallway with standby assistance from nursing staff and her . Pathology results remain pending. Chest x-ray was reviewed, laboratory results remain pending at this time. Objective - Vital Signs Vital signs: Vital Signs Temp 98.2 F 09/13/22 20:00 Pulse 92 09/14/22 04:00 Resp 16 09/14/22 04:00 BP 111/61 09/14/22 04:00 Pulse Ox 91 L 09/14/22 04:00 FiO2 21 09/13/22 20:57 Intake & Output 09/13/22 09/14/22 09/14/22 18:59 06:59 18:59 Intake Total 10 485 Output Total 5 1700 Balance 5 -1215 Intake: IV 10 Invasive Line 4 10 Oral 485 Output: Chest Tube Drainage 5 Chest Tube Right 5 Urine 1700 Other: Voiding Method Toilet Toilet # Voids 2 3 - Exam CONSTITUTIONAL: Sitting up in bed on the cardiac stepdown unit, appears comfortable, cooperative, no apparent acute distress. HEENT: Neck is supple, no JVD, no lymphadenopathy. RESPIRATORY: Lungs sounds essentially clear throughout, diminished to his bilateral bases, right greater than left. Respirations are symmetrical and nonlabored. Currently on room air with oxygen saturations 94%. Able to achieve 1250 mL on her incentive spirometry. Strong cough. CARDIOVASCULAR: Regular rhythm and rate. S1 and S2 present, negative for S3, gallop or murmur. Knee-high sequential compression devices in place to her bilateral lower extremities. Remote telemetry showing normal sinus rhythm heart rate 84 BPM. GASTROINTESTINAL: Abdomen soft, nontender, nondistended. Active bowel sounds present 4 quadrants. Tolerating diet. Passing flatus. No guarding or rigidity. GENITOURINARY: Continues to void. 800 mL of urine output in the last 8 hours. INTEGUMENTARY: Skin is warm and dry with no evidence of clubbing or cyanosis. Right chest incisions clean, dry and intact, dressings clean, dry and intact. Scant amount of subcutaneous emphysema present to her right chest. MUSKULOSKELETAL: Able to move all extremities, strength equal bilaterally. PSYCHIATRIC: Alert and oriented to person place and time, appropriate affect, intact judgment and insight. INVASIVE LINES AND TUBES: Right pleural chest tube in place to water seal. Intermittent air leak with coughing. Draining thin serosanguineous drainage with 50 mL output in the last 24 hours. - Allied health notes Allied health notes reviewed: nursing - Labs CBC & Chem 7: 09/13/22 07:56 09/13/22 07:56 Labs: Abnormal Lab Results - Last 24 Hours (Table) 09/13/22 Range/Units 07:56 Sodium 131 L (137-145) mmol/L Creatinine 0.50 L (0.52-1.04) mg/dL Glucose 126 H (74-99) mg/dL - Imaging and Cardiology Chest x-ray: report reviewed, image reviewed Assessment and Plan Assessment: 1. Right middle lobe mass, status post robotic-assisted thoracoscopic right middle lobe wedge resection, right middle lobectomy and on table diagnosis of non-small cell carcinoma 2. COPD with preoperative FEV1 84% predicted value and DLCO 57% of predicted value 3. Osteoarthritis 4. Remote history of nicotine dependence, quit smoking in 1998 Plan: 1. Keep right pleural chest tube to waterseal, continue to monitor for airleak resolution 2. Encourage use of her incentive spirometry 10 times every hour while awake. 3. Pain control per current when necessary orders. 4. Encourage increase in activity, out of bed for all meals. Encourage ambulation in the hallway. 5. GI and DVT prophylaxis. 6. Pathology results remain pending, continue to follow final pathology results. 7. Bronchodilator management per pulmonary/critical care service recommendations. 8. Continue to follow daily chest x-rays. 9. More recommendations to follow based on patient's clinical course. Time with Patient: Greater than 30
[2022-09-14 10:41] LABS: HCT 35.7 % (34.0-46.0); HGB 11.8 gm/dL (11.4-16.0); MCH 31.4 pg (25.0-35.0); MCHC 33.1 g/dL (31.0-37.0); MCV 94.6 fL (80.0-100.0); Mean Platelet Volume 7.7; Platelet Count 264 k/uL (150-450); RBC 3.77 m/uL (3.80-5.40); RDW 12.9 % (11.5-15.5); WBC 7.8 k/uL (3.8-10.6)
[2022-09-14 11:00] LABS: African American GFR (CKD) >90 (>60 ml/min/1.73 sqM); Anion Gap 3 mmol/L; Blood Urea Nitrogen 11 mg/dL (7-17); Calcium 8.3 mg/dL (8.4-10.2); Carbon Dioxide 26 mmol/L (22-30); Chloride 103 mmol/L (98-107); Glucose 74 mg/dL (74-99); Non-African American GFR(CKD) >90 (>60 ml/min/1.73 sqM); Sodium 132 mmol/L (137-145)
--- NOTE | 2022-09-14 11:22 | P.PN ---
Subjective Progress Note Date: 09/14/22 09/13/2022, the patient is sitting up on a chair and she is postop day #1. She is on room air oxygen. She still having some pain issues and she is using the incentive spirometer and she is falling approximately 1000. The chest tube is still in place. There is intermittent air leak. Output from the chest tube is minimal. The chest x-ray shows a very tiny right apical pneumothorax. Chest tube is in a good location. The patient has also developed some subcutaneous emphysema along the right chest area. The hemoglobin is at 12.6 which is stable, sodium is at 131, BUN is at 12 with a creatinine of 0.5 and she is hemodynamically stable at this point in time. The patient was also gout and ambulating in the hallway. 09/14/2022, the patient is still recovering from her surgery. She is postop day #2. She is using the incentive spirometer. Chest x-ray from today show subcutaneous emphysema on the right. Very minimal right apical pneumothorax. I did not appreciate much of air leak on her chest tube. She is ambulating. She is on room air oxygen. She has having on and off pain which is expected following her surgery. No other significant issues for now. Objective - Vital Signs Vital signs: Vital Signs Temp 98.1 F 09/14/22 08:59 Pulse 82 09/14/22 08:59 Resp 16 09/14/22 08:59 BP 146/79 09/14/22 08:59 Pulse Ox 94 L 09/14/22 08:59 FiO2 21 09/13/22 20:57 Intake & Output 09/13/22 09/14/22 09/14/22 18:59 06:59 18:59 Intake Total 10 485 123 Output Total 5 1700 Balance 5 -1215 123 Intake: IV 10 5 Invasive Line 4 10 5 Oral 485 118 Output: Chest Tube Drainage 5 Chest Tube Right 5 Urine 1700 Other: Voiding Method Toilet Toilet # Voids 2 3 - Exam CONSTITUTIONAL: Sitting up in bed on the cardiac stepdown unit, appears comfortable, cooperative, no apparent acute distress. HEENT: Neck is supple, no JVD, no lymphadenopathy. RESPIRATORY: Lungs sounds essentially clear throughout, diminished to his bilateral bases, right greater than left. Respirations are symmetrical and non labored. Currently on room air with oxygen saturations 94%. Able to achieve 1250 mL on her incentive spirometry. Strong cough. CARDIOVASCULAR: Regular rhythm and rate. S1 and S2 present, negative for S3, gallop or murmur. Knee-high sequential compression devices in place to her bilateral lower extremities. Remote telemetry showing normal sinus rhythm heart rate 84 BPM. GASTROINTESTINAL: Abdomen soft, nontender, nondistended. Active bowel sounds present 4 quadrants. Tolerating diet. Passing flatus. No guarding or rigidity. GENITOURINARY: Continues to void. 800 mL of urine output in the last 8 hours. INTEGUMENTARY: Skin is warm and dry with no evidence of clubbing or cyanosis. Right chest incisions clean, dry and intact, dressings clean, dry and intact. Scant amount of subcutaneous emphysema present to her right chest. MUSKULOSKELETAL: Able to move all extremities, strength equal bilaterally. PSYCHIATRIC: Alert and oriented to person place and time, appropriate affect, intact judgment and insight. INVASIVE LINES AND TUBES: Right pleural chest tube in place to water seal. Intermittent air leak with coughing. Draining thin serosanguineous drainage with 50 mL output in the last 24 hours. - Labs CBC & Chem 7: 09/14/22 09:56 09/14/22 09:56 Labs: Abnormal Lab Results - Last 24 Hours (Table) 09/14/22 09/14/22 Range/Units 09:56 09:56 RBC 3.77 L (3.80-5.40) m/uL Sodium 132 L (137-145) mmol/L Creatinine 0.49 L (0.52-1.04) mg/dL Calcium 8.3 L (8.4-10.2) mg/dL Assessment and Plan Plan: Right middle lobe mass and the patient is post right middle lobe lobectomy, robotic-assisted addition to mediastinal lymph node dissection. The patient is currently postop day # 2 Post surgical subcutaneous emphysema in the right, unchanged on today's chest x- ray Tiny right apical pneumothorax with intermittent air leak, currently on waterseal, we'll keep the chest tube in place Postthoracotomy and the patient has a right-sided chest tube in place. No evidence of any air leak. Tiny right apical pneumothorax is seen. COPD Ex-smoker the patient carries around [id number] smoking history. Plan Hemodynamically stable Provided patient's in the spirometer Dilaudid for pain control Albuterol nebulizer treatments on an as-needed basis for times a day Symbicort and Spiriva as maintenance Heparin subcu portably prophylaxis Awaiting final pathology Keep chest tube to waterseal, we'll keep the chest tube for today and repeat another chest x-ray for tomorrow. Chest x-ray was reviewed Patient is doing well Daily chest x-ray We'll continue to follow , continue ambulation. Clinically stable.
[2022-09-14 20:38] VITALS: RESP 18
[2022-09-15] MEDS: KETOROLAC 15 MG/ML 1 ML VIAL IVP SCH ×3 (05:10→16:53)
[2022-09-15] MEDS: PANTOPRAZOLE 40 MG TABLET PO SCH (05:10)
[2022-09-15] MEDS: IPRATROPIUM-ALBUTEROL 3 ML NEB IH SCH ×4 (07:36→19:51)
[2022-09-15] MEDS: SYMBICORT 160-4.5 MCG INHALER INHALATION SCH ×2 (07:36→19:51)
--- NOTE | 2022-09-15 07:37 | XR ---
EXAMINATION TYPE: XR chest 1V portable DATE OF EXAM: 09/15/2022 7:20 AM COMPARISON: Chest radiograph from one day prior. TECHNIQUE: XR chest 1V portable Portable AP radiograph of the chest. CLINICAL INDICATION:Female, 66 years old with history of Postop right middle lobectomy; FINDINGS: Trace right pleural effusion. Lungs/Pleura: There is no evidence of pleural effusion, focal consolidation. Pulmonary vascularity: Unremarkable. Heart/mediastinum: Cardiomediastinal silhouette is prominent in size. Musculoskeletal: No acute osseous pathology. Subcutaneous emphysema along the right chest wall. Lines/Tubes: Right thoracotomy tube is present with evidence of trace pneumothorax. IMPRESSION: Right thoracotomy tube with trace pneumothorax, similar to one day prior.
[2022-09-15] MEDS: ACETAMINOPHEN TAB 500 MG TAB PO PRN ×3 (07:56→20:34)
[2022-09-15] MEDS: CALCIUM CARB-VIT D 500 MG-5 MCG TAB PO SCH (07:56)
[2022-09-15] MEDS: traMADol 50 MG TAB PO SCH ×3 (07:57→23:02)
[2022-09-15] MEDS: HEPARIN SODIUM,PORCINE/PF 5,000 UNIT/0.5 ML SYRINGE SQ SCH ×3 (07:57→23:07)
--- NOTE | 2022-09-15 09:06 | P.PN ---
Subjective Progress Note Date: 09/15/22 Principal diagnosis: Right middle lobe mass, frozen section showed non-small cell carcinoma. Past medical history significant for chronic obstructive pulmonary disease with a preoperative FEV1 84% of predicted value and a DLCO 57% of predicted value, osteoarthritis and remote history of nicotine dependence in which he quit smoking in 1998. POD #3 Robotic-assisted, thoracoscopic right middle lobe wedge resection with on table diagnosis and right middle lobectomy and mediastinal lymph node dissection. The patient was seen and examined today 09/15/2022 at her bedside on the cardiac stepdown unit. She reports that she slept well throughout the night, denies any complaints of shortness of breath at this time, although is complaining of some surgical type pain to her chest tube insertion site, currently rating her pain 4-5 out of 10 on the pain scale. She continues to use her incentive spirometry and is achieving 1750 mL, oxygen saturation are 96% on room air. Remote telemetry showing normal sinus rhythm heart rate 85 BPM. Right pleural chest tube remains on water seal with intermittent air leak present with coughing. Draining thin serosanguineous drainage with 70 mL of output in the last 24 hours. She continues to ambulate in the cardiac stepdown unit hallway with standby assistance from nursing staff and her . She has been afebrile the last 24 hours. Surgical pathology results remain pending. Chest x-ray was reviewed. Objective - Vital Signs Vital signs: Vital Signs Temp 97.9 F 09/15/22 07:47 Pulse 82 09/15/22 07:47 Resp 18 09/15/22 07:47 BP 131/74 09/15/22 07:47 Pulse Ox 96 09/15/22 07:47 FiO2 21 09/13/22 20:57 Intake & Output 09/14/22 09/15/22 09/15/22 18:59 06:59 18:59 Intake Total 241 485 Output Total 720 7476 Balance -757 -0396 Intake: IV 5 Invasive Line 4 5 Oral 236 485 Output: Chest Tube Drainage 20 80 Chest Tube Right 20 80 Urine 700 1900 Other: Voiding Method Toilet Toilet # Voids 2 - Exam CONSTITUTIONAL: Sitting up in bed on the cardiac stepdown unit, appears comfortable, cooperative, no apparent acute distress. HEENT: Neck is supple, no JVD, no lymphadenopathy. RESPIRATORY: Lungs sounds essentially clear throughout, diminished to his bilateral bases. Respirations are symmetrical and nonlabored. Currently on room air with oxygen saturations 96%. Able to achieve 1750 mL on her incentive spi rometry. Strong cough. CARDIOVASCULAR: Regular rhythm and rate. S1 and S2 present, negative for S3, gallop or murmur. Knee-high sequential compression devices in place to her bilateral lower extremities. Remote telemetry showing normal sinus rhythm heart rate 85 BPM. GASTROINTESTINAL: Abdomen soft, nontender, nondistended. Active bowel sounds present 4 quadrants. Tolerating diet. Passing flatus. No guarding or rigidity. Bowel movement this a.m. GENITOURINARY: Continues to void. 1900 mL of urine output in the last 8 hours. INTEGUMENTARY: Skin is warm and dry with no evidence of clubbing or cyanosis. Right chest incisions clean, dry and intact, dressings clean, dry and intact. Scant amount of subcutaneous emphysema present to her right chest. MUSKULOSKELETAL: Able to move all extremities, strength equal bilaterally. PSYCHIATRIC: Alert and oriented to person place and time, appropriate affect, intact judgment and insight. INVASIVE LINES AND TUBES: Right pleural chest tube in place to water seal. Intermittent air leak with coughing. Draining thin serosanguineous drainage with 70 mL output in the last 24 hours. - Allied health notes Allied health notes reviewed: nursing - Labs CBC & Chem 7: 09/14/22 09:56 09/14/22 09:56 Labs: Abnormal Lab Results - Last 24 Hours (Table) 09/14/22 09/14/22 Range/Units 09:56 09:56 RBC 3.77 L (3.80-5.40) m/uL Sodium 132 L (137-145) mmol/L Creatinine 0.49 L (0.52-1.04) mg/dL Calcium 8.3 L (8.4-10.2) mg/dL - Imaging and Cardiology Chest x-ray: report reviewed, image reviewed Assessment and Plan Assessment: 1. Right middle lobe mass, status post robotic-assisted thoracoscopic right middle lobe wedge resection, right middle lobectomy and on table diagnosis of non-small cell carcinoma 2. COPD with preoperative FEV1 84% predicted value and DLCO 57% of predicted value 3. Osteoarthritis 4. Remote history of nicotine dependence, quit smoking in 1998 Plan: 1. Keep right pleural chest tube to waterseal, continue to monitor for airleak resolution. 2. Encourage use of her incentive spirometry 10 times every hour while awake. 3. Pain control per current when necessary orders. Tramadol was increased to 100 mg by mouth 3 times a day yesterday 09/14/2022, reports her pain is much better controlled today. 4. Encourage increase in activity, out of bed for all meals. Continue to encourage ambulation in the hallway. 5. GI and DVT prophylaxis. 6. Pathology results remain pending, continue to follow final pathology results. 7. Bronchodilator management per pulmonary/critical care service recommendations. 8. Continue to follow daily chest x-rays. 9. Mucomyst 200 mg inhalation 4 times a day initiated. 10. More recommendations to follow based on patient's clinical course. Time with Patient: Greater than 30
[2022-09-15] MEDS: guaiFENesin 600 MG TABLET.ER PO SCH ×2 (09:09→20:35)
--- NOTE | 2022-09-15 09:26 | P.PN ---
Subjective Progress Note Date: 09/15/22 09/13/2022, the patient is sitting up on a chair and she is postop day #1. She is on room air oxygen. She still having some pain issues and she is using the incentive spirometer and she is falling approximately 1000. The chest tube is still in place. There is intermittent air leak. Output from the chest tube is minimal. The chest x-ray shows a very tiny right apical pneumothorax. Chest tube is in a good location. The patient has also developed some subcutaneous emphysema along the right chest area. The hemoglobin is at 12.6 which is stable, sodium is at 131, BUN is at 12 with a creatinine of 0.5 and she is hemodynamically stable at this point in time. The patient was also gout and ambulating in the hallway. 09/14/2022, the patient is still recovering from her surgery. She is postop day #2. She is using the incentive spirometer. Chest x-ray from today show subcutaneous emphysema on the right. Very minimal right apical pneumothorax. I did not appreciate much of air leak on her chest tube. She is ambulating. She is on room air oxygen. She has having on and off pain which is expected following her surgery. No other significant issues for now. On 09/15/2022, the patient is postop day #3. The chest x-ray from today shows a small 10% pneumothorax in the right apex and the patient is having some intermittent air leak. There is appearance emphysema the chest x-ray which is also looking well. No new complaints. She is ambulating. Pain is under adequate control for now. Objective - Vital Signs Vital signs: Vital Signs Temp 97.9 F 09/15/22 07:47 Pulse 82 09/15/22 07:47 Resp 18 09/15/22 07:47 BP 131/74 09/15/22 07:47 Pulse Ox 96 09/15/22 07:47 FiO2 21 09/13/22 20:57 Intake & Output 09/14/22 09/15/22 09/15/22 18:59 06:59 18:59 Intake Total 241 485 118 Output Total 720 1980 Balance -273 -0151 118 Intake: IV 5 Invasive Line 4 5 Oral 236 485 118 Output: Chest Tube Drainage 20 80 Chest Tube Right 20 80 Urine 700 1900 Other: Voiding Method Toilet Toilet # Voids 2 - Exam CONSTITUTIONAL: Sitting up in bed on the cardiac stepdown unit, appears comfortable, cooperative, no apparent acute distress. HEENT: Neck is supple, no JVD, no lymphadenopathy. RESPIRATORY: Lungs sounds essentially clear throughout, diminished to his bilateral bases. Respirations are symmetrical and nonlabored. Currently on room air with oxygen saturations 96%. Able to achieve 1750 mL on her incentive spirometry. Strong cough. CARDIOVASCULAR: Regular rhythm and rate. S1 and S2 present, negative for S3, gallop or murmur. Knee-high sequential compression devices in place to her bilateral lower extremities. Remote telemetry showing normal sinus rhythm heart rate 85 BPM. GASTROINTESTINAL: Abdomen soft, nontender, nondistended. Active bowel sounds present 4 quadrants. Tolerating diet. Passing flatus. No guarding or rigidity. Bowel movement this a.m. GENITOURINARY: Continues to void. 1900 mL of urine output in the last 8 hours. INTEGUMENTARY: Skin is warm and dry with no evidence of clubbing or cyanosis. Right chest incisions clean, dry and intact, dressings clean, dry and intact. Scant amount of subcutaneous emphysema present to her right chest. MUSKULOSKELETAL: Able to move all extremities, strength equal bilaterally. PSYCHIATRIC: Alert and oriented to person place and time, appropriate affect, intact judgment and insight. INVASIVE LINES AND TUBES: Right pleural chest tube in place to water seal. Intermittent air leak with coughing. Draining thin serosanguineous drainage with 70 mL output in the last 24 hours. - Labs CBC & Chem 7: 09/14/22 09:56 09/14/22 09:56 Labs: Abnormal Lab Results - Last 24 Hours (Table) 09/14/22 09/14/22 Range/Units 09:56 09:56 RBC 3.77 L (3.80-5.40) m/uL Sodium 132 L (137-145) mmol/L Creatinine 0.49 L (0.52-1.04) mg/dL Calcium 8.3 L (8.4-10.2) mg/dL Assessment and Plan Plan: Right middle lobe mass and the patient is post right middle lobe lobectomy, robo tic-assisted addition to mediastinal lymph node dissection. The patient is currently postop day # 3 Post surgical subcutaneous emphysema in the right, unchanged on today's chest x- ray Right-sided pneumothorax with a tiny air leak. Postthoracotomy and the patient has a right-sided chest tube in place. No evidence of any air leak. Tiny right apical pneumothorax is seen. COPD Ex-smoker the patient carries around [id number] smoking history. Plan Hemodynamically stable We'll keep the chest tube in place for another 24 hours and repeat chest x-ray tomorrow Provided patient's in the spirometer Dilaudid for pain control Albuterol nebulizer treatments on an as-needed basis for times a day Symbicort and Spiriva as maintenance Heparin subcu portably prophylaxis Awaiting final pathology
[2022-09-15] MEDS: ACETYLCYSTEINE 800 MG/4 ML VIAL INHALATION SCH ×3 (12:05→19:51)
[2022-09-16] MEDS: ACETAMINOPHEN TAB 500 MG TAB PO PRN (02:07)
[2022-09-16] MEDS: PANTOPRAZOLE 40 MG TABLET PO SCH (06:18)
[2022-09-16 06:34] LABS: HCT 34.2 % (34.0-46.0); HGB 11.9 gm/dL (11.4-16.0); MCH 31.5 pg (25.0-35.0); MCHC 34.7 g/dL (31.0-37.0); Mean Platelet Volume 7.9; Platelet Count 274 k/uL (150-450); RBC 3.76 m/uL (3.80-5.40); RDW 13.3 % (11.5-15.5); WBC 6.8 k/uL (3.8-10.6)
[2022-09-16 06:52] LABS: African American GFR (CKD) >90 (>60 ml/min/1.73 sqM); Anion Gap 3 mmol/L; Blood Urea Nitrogen 11 mg/dL (7-17); Calcium 8.4 mg/dL (8.4-10.2); Carbon Dioxide 27 mmol/L (22-30); Chloride 103 mmol/L (98-107); Glucose 84 mg/dL (74-99); Non-African American GFR(CKD) >90 (>60 ml/min/1.73 sqM); Potassium 4.6 mmol/L (3.5-5.1); Sodium 133 mmol/L (137-145)
[2022-09-16] MEDS: IPRATROPIUM-ALBUTEROL 3 ML NEB IH SCH ×2 (07:53→11:12)
[2022-09-16] MEDS: SYMBICORT 160-4.5 MCG INHALER INHALATION SCH (07:53)
[2022-09-16] MEDS: ACETYLCYSTEINE 800 MG/4 ML VIAL INHALATION SCH ×2 (07:53→11:12)
--- NOTE | 2022-09-16 08:01 | P.PN ---
Subjective Progress Note Date: 09/16/22 Principal diagnosis: Right middle lobe mass. Previous medical history of COPD, previous tobacco dependance, osteoarthritis POD #4 Robotic-assisted, thoracoscopic right middle lobe wedge resection with on table diagnosis and right middle lobectomy and mediastinal lymph node dissection Subcutaneous emphysema, air leak, pneumothorax, all normal postoperative course and not complications The patient was seen and examined sitting up in bed in the cardiac stepdown unit this morning in no acute distress. She denies shortness of breath, does continue to have some pain in her chest tube site, Toradol was stopped yesterday per pharmacy protocol. She has been ambulatory in the room as well as the hallway without difficulty, actively using incentive spirometer. Remains on r oom air with oxygen saturation in the mid to high 90s. Right pleural chest tube remains with minimal drainage, no air leak present this morning. Chest x-ray and labs reviewed. No other new concerns. Objective - Vital Signs Vital signs: Vital Signs Temp 98.0 F 09/16/22 03:36 Pulse 79 09/16/22 03:36 Resp 18 09/16/22 03:36 BP 138/70 09/16/22 03:36 Pulse Ox 96 09/16/22 03:36 FiO2 21 09/13/22 20:57 Intake & Output 09/15/22 09/16/22 09/16/22 18:59 06:59 18:59 Intake Total 354 240 Output Total 280 1850 Balance 74 -1610 Intake: Oral 354 240 Output: Chest Tube Drainage 30 Chest Tube Right 30 Urine 250 1850 Other: Voiding Method Toilet Toilet - Exam CONSTITUTIONAL: Appears comfortable, cooperative, no acute distress RESPIRATORY: Lungs sounds diminished bilaterally. Respirations even, nonlabor ed. Currently on room air with oxygen saturation 96%. Able to achieve 2000 mL on incentive spirometry. Strong cough. CARDIOVASCULAR: S1, S2 present. Regular rate and rhythm, sinus rhythm on tel emetry. Palpable peripheral pulses bilaterally. No edema present. No calf pain or tenderness noted. SCDs present. GASTROINTESTINAL: Abdomen soft, nontender, nondistended. Active bowel sounds present 4 quadrants. Tolerating diet. Positive bowel movement 09/15/22 GENITOURINARY: Continues to void clear, yellow urine INTEGUMENTARY: Skin is warm and dry with evidence of good perfusion NEUROLOGIC: Cranial nerves II through XII intact MUSKULOSKELETAL: Able to move all extremities, strength equal bilaterally, gait normal PSYCHIATRIC: Alert and oriented to person place and time, appropriate affect, intact judgment and insight INVASIVE LINES AND TUBES: Right pleural chest tube present to waterseal, no air leak present this morning, minimal drainage - Allied health notes Allied health notes reviewed: nursing - Labs CBC & Chem 7: 09/16/22 06:09 09/16/22 06:09 Labs: Abnormal Lab Results - Last 24 Hours (Table) 09/16/22 09/16/22 Range/Units 06:09 06:09 RBC 3.76 L (3.80-5.40) m/uL Sodium 133 L (137-145) mmol/L - Imaging and Cardiology Chest x-ray: image reviewed Assessment and Plan Assessment: 1. 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 COPD, preoperative FEV1 84% of predicted, DLCO 57% of predicted 3. Previous tobacco dependance, [id number] history 4. Osteoarthritis 5. Subcutaneous emphysema, air leak, pneumothorax, all normal postoperative course and not complications Plan: 1. Right pleural chest tube clamped this morning, will unclamped in 2 hours. If no air leak will discontinue pleural chest tube, repeat chest x-ray, if stable will discharge home. 2. Encourage use of her incentive spirometry 10 times every hour while awake. 3. Pain control per current medication regimen. Toradol re-added 4. Encourage increase in activity, out of bed for all meals. Continue to encourage ambulation in the hallway. 5. GI and DVT prophylaxis. 6. Final pathology pending, continue to follow 7. Bronchodilator management per pulmonology 8. More recommendations to follow based on patient's clinical course.
[2022-09-16 08:04] VITALS: TEMP 98.1
[2022-09-16] MEDS: CALCIUM CARB-VIT D 500 MG-5 MCG TAB PO SCH (08:04)
[2022-09-16] MEDS: guaiFENesin 600 MG TABLET.ER PO SCH (08:05)
[2022-09-16] MEDS: KETOROLAC 15 MG/ML 1 ML VIAL IVP SCH ×2 (08:05→11:52)
[2022-09-16] MEDS: traMADol 50 MG TAB PO SCH (08:05)
[2022-09-16] MEDS: HEPARIN SODIUM,PORCINE/PF 5,000 UNIT/0.5 ML SYRINGE SQ SCH (08:07)
--- NOTE | 2022-09-16 08:24 | XR ---
EXAMINATION TYPE: XR chest 1V portable DATE OF EXAM: 09/16/2022 7:00 AM COMPARISON: Chest radiograph from one day prior. TECHNIQUE: XR chest 1V portable Portable AP radiograph of the chest. CLINICAL INDICATION:Female, 66 years old with history of s/p right middle lobectomy; FINDINGS: Lungs/Pleura: There is no evidence of pleural effusion or focal consolidation. Pulmonary vascularity: Unremarkable. Heart/mediastinum: Cardiomediastinal silhouette is unremarkable. Musculoskeletal: No acute osseous pathology. Other findings: Subcutaneous emphysema scattered right chest wall. Lines/Tubes: Right thoracotomy tube is present with trace pneumothorax. IMPRESSION: Right thoracotomy tube with trace pneumothorax
--- NOTE | 2022-09-16 09:58 | XR ---
EXAMINATION TYPE: XR chest 1V portable DATE OF EXAM: 09/16/2022 9:48 AM COMPARISON: Chest radiograph from same day TECHNIQUE: XR chest 1V portable Portable AP radiograph of the chest. CLINICAL INDICATION:Female, 66 years old with history of pneumothorax; FINDINGS: Lungs/Pleura: There is no evidence of pleural effusion or focal consolidation. Trace right pneumotho rax. Pulmonary vascularity: Unremarkable. Heart/mediastinum: Cardiomediastinal silhouette is unremarkable. Musculoskeletal: No acute osseous pathology. Other findings: Subcutaneous emphysema scattered along the right chest wall. Lines/Tubes: Right thoracotomy tube is present with trace pneumothorax. IMPRESSION: Right thoracotomy tube with trace pneumothorax
--- NOTE | 2022-09-16 10:46 | P.DS ---
Providers Date of admission: 09/12/22 06:06 Expected date of discharge: 09/16/22 Attending physician: Seven Soares Consults: 09/12/22 17:39 Consult Physician Routine Consulting Provider: Bob Pugh Consult Reason/Comments: pulm post VATS Do you want consulting provider notified?: Yes Primary care physician: Pema Hernandez [facility] Course: FINAL DIAGNOSIS: 1. Right middle lobe mass, frozen section positive for non-small cell carcinoma, final pathology pending at time of discharge 2. COPD, preoperative FEV1 84% of predicted, DLCO 57% of predicted 3. Previous tobacco dependence, [id number] history 4. Osteoarthritis 5. Subcutaneous emphysema, air leak, pneumothorax, all normal postoperative course PRINCIPAL PROCEDURE: 1. Robotic-assisted thoracoscopic right middle lobe wedge resection with on table diagnosis and subsequent right middle lobectomy and mediastinal lymph node dissection HISTORY OF PRESENT ILLNESS: This is a 66-year-old female who follows outpatient with Dr Hernandez for primary care and Dr. Izquierdo for pulmonology. She was noted to have a right upper lobe mass which was spiculated and adjacent to the fissure with the lower lobe, measured about 2 cm in diameter. PET scan demonstrated marked uptake in the mass consistent with pulmonary primary carcinoma with no evidence of metastatic disease. There was no evidence of lymph radha enlargement on CT and the mass was peripheral. The patient was referred to Dr. Soares from cardiothoracic surgery. She was recommended to undergo robotic- assisted thoracoscopic middle lobectomy. The usual perioperative course was discussed in detail with the patient and her family, all risks and benefits were explained, all questions were answered, and consent was obtained to proceed with surgery. Pulmonary function tests had been completed and the patient was felt to be able to tolerate lobectomy. The patient was scheduled for surgery at the earliest possible date. HOSPITAL COURSE: The patient was brought to the hospital on 09/12/2022, taken to the preoperative area, prepared in the usual fashion, and subsequently taken to the operating room where Dr. Soares first performed a robotic-assisted thoracoscopic right middle lobe wedge resection with on table diagnosis, and subsequently performed right middle lobectomy and mediastinal lymph node dissection. Upon completion of surgery the patient was extubated and taken to the recovery room for further monitoring. She was eventually admitted to [address] [place] [address] cardiac stepdown unit for further monitoring and rehabilitation. She continued to recover and was felt stable for chest tube removal on postoperative day #4. Follow-up chest x-ray was satisfactory and stable. Her oxygen was titrated down, she was tolerating oral diet, her pain was controlled, and she was ready to be discharged to home on postoperative day #4. She received written and verbal instruction regarding her medications, activity restrictions, signs and symptoms requiring physician notification, and follow-up appointments. Patient Condition at Discharge: Stable Plan - Discharge Summary Discharge Rx Participant: Yes New Discharge Prescriptions: New Acetaminophen Tab [Tylenol] 1,000 mg PO Q6HR PRN tab PRN Reason: Fever and/ or Mild Pain guaiFENesin [Mucinex] 1,200 mg PO Q12HR PRN tab PRN Reason: Cough traMADol HCl [Ultram] 50 mg PO TID PRN #9 tab PRN Reason: Pain Continue Tiotropium Mylo [Spiriva] 1 cap INHALATION QAM Budesonide-Formot 160-4.5 Mcg [Symbicort 160-4.5 Mcg Inhaler] 2 puff INHALATION BID Albuterol Inhaler [Ventolin Hfa Inhaler] 1 - 2 puff INHALATION Q6H PRN PRN Reason: Dyspnea Meloxicam [Mobic] 7.5 mg PO DAILY Calcium Carbonate/Vitamin D3 [Calcium 250-D Tablet] 1 tab PO DAILY Discontinued Amoxicillin 1,000 mg PO Q12H Discharge Medication List Tiotropium Mylo [Spiriva] 1 cap INHALATION QAM 10/25/14 [History] Budesonide-Formot 160-4.5 Mcg [Symbicort 160-4.5 Mcg Inhaler] 2 puff INHALATION BID 04/07/17 [History] Albuterol Inhaler [Ventolin Hfa Inhaler] 1 - 2 puff INHALATION Q6H PRN 05/21/19 [History] Meloxicam [Mobic] 7.5 mg PO DAILY 02/21/22 [History] Calcium Carbonate/Vitamin D3 [Calcium 250-D Tablet] 1 tab PO DAILY 06/18/22 [History] Acetaminophen Tab [Tylenol] 1,000 mg PO Q6HR PRN tab 09/16/22 [Rx] guaiFENesin [Mucinex] 1,200 mg PO Q12HR PRN tab 09/16/22 [Rx] traMADol HCl [Ultram] 50 mg PO TID PRN #9 tab 09/16/22 [Rx] Follow up Appointment(s)/Referral(s): Seven Soares MD [STAFF PHYSICIAN] - 09/26/22 12:30 pm Pema Hernandez DO [Primary Care Provider] - As Needed Sameer Izquierdo DO [Doctor of Osteopathic Medicine] - 10/10/22 3:00 pm (The October 10 appointment is the earliest Dr. Izquierdo can get you in at this time. You are on the cancellation list in case anything comes up sooner-the office will call) Activity/Diet/Wound Care/Special Instructions: DISCHARGE INSTRUCTIONS: 1. No driving for 2 weeks, or until physician gives their ok. 2. No lifting, pushing, or pulling more than 10 pounds for 2 weeks. The physician will advise of any restriction changes. 3. Continue pain control per as needed orders. Alternate acetaminophen (Tylenol) and ibuprofen (Motrin/Advil) for pain. 4. Continue with incentive spirometry and splinting until otherwise directed by the physician. 5. Leave chest tube dressing for 48 hours. After that, remove all dressings and shower daily. 6. Routine incision care. No powders, lotions, ointments on incisions. 7. Please call surgeon/ROTARY DRILLER HELPER for temp greater than 101 F or purulent drainage from incisions. Discharge Disposition: HOME SELF-CARE
--- NOTE | 2022-09-16 11:46 | P.PN ---
Subjective Progress Note Date: 09/16/22 09/13/2022, the patient is sitting up on a chair and she is postop day #1. She is on room air oxygen. She still having some pain issues and she is using the incentive spirometer and she is falling approximately 1000. The chest tube is still in place. There is intermittent air leak. Output from the chest tube is minimal. The chest x-ray shows a very tiny right apical pneumothorax. Chest tube is in a good location. The patient has also developed some subcutaneous emphysema along the right chest area. The hemoglobin is at 12.6 which is stable, sodium is at 131, BUN is at 12 with a creatinine of 0.5 and she is hemodynamically stable at this point in time. The patient was also gout and ambulating in the hallway. 09/14/2022, the patient is still recovering from her surgery. She is postop day #2. She is using the incentive spirometer. Chest x-ray from today show subcutaneous emphysema on the right. Very minimal right apical pneumothorax. I did not appreciate much of air leak on her chest tube. She is ambulating. She is on room air oxygen. She has having on and off pain which is expected following her surgery. No other significant issues for now. On 09/15/2022, the patient is postop day #3. The chest x-ray from today shows a small 10% pneumothorax in the right apex and the patient is having some intermittent air leak. There is appearance emphysema the chest x-ray which is also looking well. No new complaints. She is ambulating. Pain is under adequate control for now. The patient is seen today 09/16/2022 in follow-up on the selective care unit. Postoperative day #4. Chest tube was removed earlier this morning by CT services. Follow-up chest x-ray revealed no significant pneumothorax. There is evidence of subcutaneous emphysema.. She is up ambulating in the hallway. No shortness of breath, cough or congestion. Maintaining good O2 saturations in th e 90s on room air. White count 6.8. Hemoglobin 11.9. Sodium 133. Potassium 4.6. Bicarb 27. BUN 11. Creatinine 0.56. She is working well with the incentive spirometer. Continued on Symbicort, Spiriva, albuterol. Heparin for DVT prophylaxis. Objective - Vital Signs Vital signs: Vital Signs Temp 98.1 F 01/09/23 08:00 Pulse 83 09/16/22 11:34 Resp 18 09/16/22 09:19 BP 123/67 09/16/22 08:00 Pulse Ox 99 09/16/22 08:00 FiO2 21 09/13/22 20:57 Intake & Output 09/15/22 09/16/22 09/16/22 18:59 06:59 18:59 Intake Total 354 240 Output Total 280 1850 Balance 74 -1610 Intake: Oral 354 240 Output: Chest Tube Drainage 30 Chest Tube Right 30 Urine 250 1850 Other: Voiding Method Toilet Toilet Toilet - Exam CONSTITUTIONAL: A pleasant 66-year-old female, up ambulating in the hallway on the cardiac stepdown unit, appears comfortable, cooperative, no apparent acute distress. HEENT: Neck is supple, no JVD, no lymphadenopathy. RESPIRATORY: Lungs sounds essentially clear throughout, diminished to his bilateral bases. Respirations are symmetrical and nonlabored. Currently on room air with oxygen saturations 99%. Able to achieve 1750 mL on her incentive spirometry. CARDIOVASCULAR: Regular rhythm and rate. S1 and S2 present, negative for S3, gallop or murmur. Knee-high sequential compression devices in place to her bilateral lower extremities. Remote telemetry showing normal sinus rhythm heart rate 85 BPM. GASTROINTESTINAL: Abdomen soft, nontender, nondistended. Active bowel sounds present 4 quadrants. Tolerating diet. Passing flatus. No guarding or rigidity. Bowel movement this a.m. GENITOURINARY: Continues to void. Adequate urine output in the last 8 hours. INTEGUMENTARY: Skin is warm and dry with no evidence of clubbing or cyanosis. Right chest incisions clean, dry and intact, dressings clean, dry and intact. Scant amount of subcutaneous emphysema present to her right chest. MUSKULOSKELETAL: Able to move all extremities, strength equal bilaterally. PSYCHIATRIC: Alert and oriented to person place and time, appropriate affect, intact judgment and insight. INVASIVE LINES AND TUBES: Right pleural chest tube has been removed - Labs CBC & Chem 7: 09/16/22 06:09 09/16/22 06:09 Labs: Abnormal Lab Results - Last 24 Hours (Table) 09/16/22 09/16/22 Range/Units 06:09 06:09 RBC 3.76 L (3.80-5.40) m/uL Sodium 133 L (137-145) mmol/L Assessment and Plan Assessment: Right middle lobe mass and the patient is post right middle lobe lobectomy, robotic-assisted addition to mediastinal lymph node dissection. The patient is currently postop day # 4 Post surgical subcutaneous emphysema in the right, unchanged on today's chest x- ray Right-sided pneumothorax, stable. Postthoracotomy and the patient has a right-sided chest tube removed today. Tiny right apical pneumothorax is seen. COPD Ex-smoker the patient carries around [id number] smoking history. Plan: The patient was seen and evaluated Chest x-rays, medications and labs reviewed Discharge once cleared by CT services Follow up the office in 1 week I have personally seen and examined the patient, performed the documentation and the assessment and plan as written. Number of minutes spent on the visit: 10.
[2022-09-16 11:52] VITALS: BP 120/74; PULSE 90
== END 2022-09-16 12:37 | disposition home or self-care (01) | DRG 164 ==
LOC: 2ORMAIN 06:06 → 3SCARD 16:07
PROVIDERS: ADMIT Thoracic Surgery (Cardiothoracic Vascular Surgery); ATTEND Thoracic Surgery (Cardiothoracic Vascular Surgery)
PROC: 8E0W4CZ Robotic Assisted Procedure of Trunk Region, Percutaneous Endoscopic Approach (ICD-10-PCS; principal; 2022-09-12 08:00)
PROC: 07B70ZX Excision of Thorax Lymphatic, Open Approach, Diagnostic (ICD-10-PCS; principal; 2022-09-12 08:00)
PROC: 0BTD4ZZ Resection of Right Middle Lung Lobe, Percutaneous Endoscopic Approach (ICD-10-PCS; principal; 2022-09-12 08:00)
PROC: 0W9930Z Drainage of Right Pleural Cavity with Drainage Device, Percutaneous Approach (ICD-10-PCS; principal; 2022-09-12 08:00)
DX: C34.2 Malignant neoplasm of middle lobe, bronchus or lung (principal); J93.82 Other air leak; J93.9 Pneumothorax, unspecified; T79.7XXA Traumatic subcutaneous emphysema, initial encounter; Z87.891 Personal history of nicotine dependence; R59.0 Localized enlarged lymph nodes; M10.9 Gout, unspecified; M19.90 Unspecified osteoarthritis, unspecified site; M85.80 Other specified disorders of bone density and structure, unspecified site; Z79.1 Long term (current) use of non-steroidal anti-inflammatories (NSAID); Z79.51 Long term (current) use of inhaled steroids; Z80.1 Family history of malignant neoplasm of trachea, bronchus and lung; Z80.3 Family history of malignant neoplasm of breast; Z96.643 Presence of artificial hip joint, bilateral
CPT/HCPCS: 64999; 71045; 80048; 85025; 85027; 86850; 86900; 86901; 88305; 88307; 88309; 88313; 88331; 88341; 88342; 94640; 94760

== ENCOUNTER → 2023-02-24 | Outpatient (CLI) | payer MEDICARE ==
[2023-02-24 13:26] LABS: African American GFR (CKD) >90 (>60 ml/min/1.73 sqM); Blood Urea Nitrogen 18 mg/dL (7-17); Non-African American GFR(CKD) >90 (>60 ml/min/1.73 sqM)
--- NOTE | 2023-02-24 14:12 | CT ---
EXAMINATION TYPE: CT chest w con DATE OF EXAM: 02/24/2023 COMPARISON: 08/16/2022 HISTORY: Lung nodule. History of left lung lobectomy. CT DLP: 266.6 mGycm Automated exposure control for dose reduction was used. CONTRAST: CT scan of the chest is performed with IV Contrast, patient injected with 100ml mL of Isovue 300. FINDINGS: LUNGS: Partial right-sided lobectomy changes noted. Previously noted pulmonary nodule has been resect ed. The lungs are otherwise grossly clear, there is no concerning parenchymal mass or nodule identifi ed. There is no pleural effusion or pneumothorax seen. The tracheobronchial tree is patent. MEDIASTINUM: There are no greater than 1 cm hilar or mediastinal lymph nodes. No pericardial effusi on is seen. Thoracic aorta is of normal caliber. The heart is not enlarged. UPPER ABDOMEN: Cholecystectomy clips are in place. Small focal eventration left hemidiaphragm. OTHER: No additional significant abnormality is seen. IMPRESSION: Postoperative changes right lung. Resection previously noted right-sided pulmonary nodule. No evidenc e recurrent or residual nodule at this time.
== END | disposition home or self-care (01) ==
LOC: RADCTMAIN 12:56
PROVIDERS: ATTEND Internal Medicine
DX: R91.1 Solitary pulmonary nodule (principal); Z90.2 Acquired absence of lung [part of]
CPT/HCPCS: 82565; 84520; 71260; 36415; Q9967

== ENCOUNTER → 2023-07-22 | Outpatient (CLI) | payer MEDICARE ==
[2023-07-22 10:09] VITALS: BP 150/86; PULSE 83; RESP 17; TEMP 98.1
--- NOTE | 2023-07-22 10:43 | P.HPOB ---
History of Present Illness H&P Date: 07/22/23 Chief Complaint: The patient is here for her routine gynecologic exam and ma mmogram. This is a 67-year-old with an LMP of 1993. She is status post DIAMOND for benign reasons. She continues to have vaginal dryness with sexual intercourse. She did not end up using the estrogen vaginal cream because of cost. She states she has a new insurance and she believes it may be covered by this insurance so she would like a new prescription for estradiol vaginal cream. She is otherwise without gynecologic complaints. Review of Systems The patient's weight has been stable over the last year. She denies respiratory, cardiac, or G.I. problems. Past Medical History Past Medical History: Cancer, COPD, Musculoskeletal Disorder, Osteoarthritis (OA) Additional Past Medical History / Comment(s): Right middle lobe lung cancer 2022(Surgery only), Varicose veins. 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 History of Any Multi-Drug Resistant Organisms: None Reported Past Surgical History: Appendectomy, Section, Cholecystectomy, Joint Replacement, Orthopedic Surgery, Tonsillectomy Additional Past Surgical History / Comment(s): Partial hysterectomy - bilateral salpingectomy(no oophorectomy), bilateral hip replacements, knee surgery, shoulder surgery, colonoscopy X3. Right middle lobe of the lung removed 2022. Past Anesthesia/Blood Transfusion Reactions: Previous Problems w/ Anesthesia Additional Past Anesthesia/Blood Transfusion Reaction / Comment(s): States BP dropped with last surgery(hip replacement). Past Psychological History: No Psychological Hx Reported Smoking Status: Former smoker Past Alcohol Use History: Occasional (4 drinks per month.) Additional Past Alcohol Use History / Comment(s): Quit smoking in 1998, started smoking at age 13, 2ppd. Past Drug Use History: None Reported Additional History: She has been since 1983 and is sexually active. She is retired. - Past Family History Mother Family Medical History: Cancer Additional Family Medical History / Comment(s): Breast and lung cancer. Mother's twin sister had breast cancer. Medications and Allergies Home Medications Medication Instructions Recorded Confirmed Type Tiotropium Friant [Spiriva] 1 cap INHALATION QAM 10/25/14 07/22/23 History Budesonide-Formot 160-4.5 Mcg 2 puff INHALATION BID 04/07/17 07/22/23 History [Symbicort 160-4.5 Mcg Inhaler] Albuterol Inhaler [Ventolin Hfa 1 - 2 puff INHALATION Q6H PRN 05/21/19 07/22/23 History Inhaler] Calcium Carbonate/Vitamin D3 1 tab PO DAILY 06/18/22 07/22/23 History [Calcium 250-D Tablet] Acetaminophen Tab [Tylenol] 1,000 mg PO Q6HR PRN tab 09/16/22 07/22/23 Rx guaiFENesin [Mucinex] 1,200 mg PO Q12HR PRN tab 09/16/22 07/22/23 Rx Allergies Allergy/AdvReac Type Severity Reaction Status Date / Time No Known Allergies Allergy Verified 07/22/23 09:55 Exam Vital Signs Temp Pulse Resp BP Pulse Ox 07/22/23 09:56 98.1 F 83 17 150/86 98 Intake and Output 07/21/23 07/22/23 07/22/23 22:59 06:59 14:59 Other: Weight 64.864 kg Height 5 feet 6 inches, weight 143 pounds, BMI 23.1. This is a well-developed well-nourished white female who is alert and oriented times 3 in no acute distress. HEENT: Within normal limits. NECK: Supple without mass or thyromegaly. CHEST AND LUNGS: Clear to auscultation. HEART: Regular rate and rhythm. BREASTS: Are without mass or discharge. There is a small area of seborrheic keratosis on the right breast at the 3 o'clock position measuring approximately 9 x 8 mm. AXILLARY EXAM: Negative for adenopathy. BACK: Negative for CVA tenderness. ABDOMEN: Soft, nontender, without palpable masses. PELVIC EXAM: External genitalia appears normal with moderate atrophy. Vagina appears normal moderate atrophy. There is no evidence of prolapse. Bimanual examination is negative for mass or tenderness. RECTAL EXAM: Rectovaginal exam is negative for mass or tenderness and is negative for occult blood. EXTREMITIES: Nontender. IMPRESSION: 1. 67-year-old menopausal female status post DIAMOND for benign reasons, with normal gynecologic exam. 2. Dyspareunia secondary to vaginal dryness and genital atrophy. 3. History of osteoporosis. The patient is declining prescription medication for this. 4. Benign-appearing seborrheic keratosis on the right breast measuring approximately 9 x 8 mm. PLAN: 1. Pap smears have been discontinued. 2. Self breast awareness was discussed with the patient. We have also discussed symptoms associated with inflammatory breast cancer. 3. Screening mammogram will be done today. 4. Trial of estrogen vaginal cream. A sample of Premarin vaginal cream was given to the patient. She is to insert 1 g into the vagina 2 times weekly. She believes the Premarin vaginal cream is not covered by her insurance. A perception for estradiol vaginal cream will be sent to [facility] pharmacy in [place]. She is to insert 1 g into the vagina 2 times weekly. 5. She states she has an upcoming appointment with her fastener technologist. She will show her fastener technologist the area on the right breast for reevaluation. 6.Osteoporosis management was discussed. I have stressed the importance of adequate calcium, vitamin D and regular exercise. Recommended amounts of calcium and vitamin D were also discussed. We will plan on repeating the bone density test in 1 year. She again is declining prescription medication for this. She will call if she changes her mind about that. 7. She was advised to return in one year for her annual well woman exam.
== END ==
LOC: WWCWWP 09:45
PROVIDERS: ATTEND Obstetrics & Gynecology
DX: Z12.31 Encounter for screening mammogram for malignant neoplasm of breast (principal); N94.10 Unspecified dyspareunia; L82.1 Other seborrheic keratosis; M81.0 Age-related osteoporosis without current pathological fracture; M19.90 Unspecified osteoarthritis, unspecified site; J44.9 Chronic obstructive pulmonary disease, unspecified; Z80.3 Family history of malignant neoplasm of breast; Z85.118 Personal history of other malignant neoplasm of bronchus and lung; Z87.891 Personal history of nicotine dependence; Z78.0 Asymptomatic menopausal state; Z79.899 Other long term (current) drug therapy; Z87.39 Personal history of other diseases of the musculoskeletal system and connective tissue
CPT/HCPCS: 77063; 77067

== ENCOUNTER → 2023-08-26 | Outpatient (CLI) | payer MEDICARE ==
[2023-08-26 09:23] LABS: African American GFR (CKD) >90 (>60 ml/min/1.73 sqM); Blood Urea Nitrogen 20 mg/dL (7-17); Non-African American GFR(CKD) 90 (>60 ml/min/1.73 sqM)
--- NOTE | 2023-09-02 00:45 | CT ---
EXAMINATION TYPE: CT chest w con CT DLP: 493 mGycm, Automated exposure control for dose reduction was used. DATE OF EXAM: 08/26/2023 10:03 AM COMPARISON: CT chest 02/24/2023, PET/CT 08/16/2022 CLINICAL INDICATION:Female, 67 years old with history of R91.1 LUNG NODULE; PHH, lung nodule, history of lung CA TECHNIQUE: Multiple axial images were obtained through the chest. Sagittal and coronal reformats were created for review. Contrast used:100 mL of Isovue 300 with IV Contrast (None if empty) Oral contrast used: (None if empty) FINDINGS: LOWER NECK: Grossly stable hypodense nodule deep in the right thyroid lobe measures up to 12.5 mm. HEART: Normal in size..No significant coronary calcifications seen. No pericardial effusion. VASCULATURE: Mild/moderate atherosclerotic calcification of the aorta. Stable mild fusiform aneurysm al dilatation of the ascending aorta, 4 cm. Descending aorta is 2.8 cm. There is calcification at the origin of the left subclavian artery and some mild soft plaque, with less than 50% stenosis. Grossl y preserved enhancement of the pulmonary arteries in the limits of the exam. Pulmonary trunk is nonen larged, measures 2.4 cm. MEDIASTINUM: No gross evidence of adenopathy. LUNGS/ PLEURA: Partial right pneumonectomy changes again seen. Moderate emphysematous changes bilater ally, without evidence of suspicious nodule or mass. In the superior segment right lower lobe there i s mild posterior pleural/subpleural thickening adjacent to a mildly bulbous appearing rib, most sugge stive of scarring or localized atelectasis. Mild dependent atelectasis in the lung bases. No consolid ation, pleural effusion, or pneumothorax. AIRWAY: Central airways are patent and unremarkable. MUSCULOSKELETAL: No acute osseous abnormalities. Moderate disc degeneration changes are present thro ughout the visualized spine. Mild/moderate degenerative changes of the shoulders, greatest on the rig ht. SOFT TISSUES: Unremarkable. No axillary adenopathy. UPPER ABDOMEN: No adrenal mass. Stable left renal cyst. Mostly calcified mild to moderate plaque in t he upper abdominal aorta with mild narrowing of the celiac artery. Status post cholecystectomy. Mild hepatic steatosis without evidence of mass. IMPRESSION: Overall stable exam. No evidence of recurrent or metastatic disease in the chest. Stable fusiform 4 cm ascending aortic aneurysm.
== END | disposition home or self-care (01) ==
LOC: RADCTMAIN 08:46
PROVIDERS: ATTEND Internal Medicine Critical Care Medicine
DX: I71.21 Aneurysm of the ascending aorta, without rupture (principal); R91.1 Solitary pulmonary nodule; Z85.118 Personal history of other malignant neoplasm of bronchus and lung
CPT/HCPCS: 82565; 84520; 71260; 36415; Q9967

== ENCOUNTER → 2023-12-25 | Outpatient (CLI) | payer MEDICARE ==
--- NOTE | 2023-12-25 17:22 | US ---
EXAMINATION TYPE: US abdomen complete DATE OF EXAM: 12/25/2023 COMPARISON: NONE CLINICAL INDICATION: Female, 68 years old with history of R10.811 R10.13 RUQ ABD TENDERNESS, EPIGSTRI C PAIN; pain gb removed TECHNIQUE: Multiple sonographic images of the abdomen are obtained. FINDINGS: EXAM MEASUREMENTS: Liver Length: 12.5 cm Gallbladder Wall: Surgically absent CBD: .6 cm Spleen: 8.2 cm Right Kidney: 9.6 x 4.9 x 4.7 cm Left Kidney: 9.6 x 4.0 x 4.2 cm Pancreas: wnl Liver: wnl Gallbladder: Surgically absent Evidence for sonographic Rodríguez's sign: No CBD: wnl Spleen: wnl Right Kidney: Lower pole limited due to bowel gas. Left Kidney: Upper pole limited due to bowel gas. Upper IVC: wnl Abd Aorta: wnl The liver is homogenous. The intrahepatic portion of the IVC and proximal abdominal aorta are within normal limits. The gallbladder is surgically absent. Common bile duct is unremarkable. The visuali zed portions of the pancreas are homogenous. The spleen is unremarkable. Kidneys are symmetric and free of hydronephrosis. No renal lesions are seen. IMPRESSION: 1. Cholecystectomy. 2. No biliary ductal dilatation. 3. No organomegaly or focal mass involving the liver, spleen and the visualized portion of the pancre as 4. No free intraperitoneal fluid. 5. Limited evaluation the kidneys due to bowel gas.
== END | disposition home or self-care (01) ==
LOC: RADUSWWP 13:36
PROVIDERS: ATTEND Family Medicine
DX: R14.3 Flatulence (principal)
CPT/HCPCS: 76700

== ENCOUNTER → 2023-12-30 | Outpatient (CLI) | payer MEDICARE ==
[2023-12-30 09:42] LABS: African American GFR (CKD) >90 (>60 ml/min/1.73 sqM); Blood Urea Nitrogen 10 mg/dL (7-17); Non-African American GFR(CKD) >90 (>60 ml/min/1.73 sqM)
--- NOTE | 2024-01-03 08:36 | CT ---
EXAMINATION TYPE: CT abdomen pelvis w con CT DLP: 526 mGycm, Automated exposure control for dose reduction was used. DATE OF EXAM: 12/30/2023 11:16 AM COMPARISON: PET CT 08/16/2022 CLINICAL INDICATION:Female, 68 years old with history of right upper quadrant PAIN R10.13 R10.811; RU Q pain TECHNIQUE: Axial CT abdomen pelvis w con;Sagittal and coronal reformats were created on a separate w orkstation. Contrast used:100ml mL of Isovue 300 with IV Contrast, (none if empty) Oral contrast used: with Oral Contrast (none if empty) FINDINGS: LOWER CHEST: Unremarkable ABDOMEN LIVER: Unremarkable GALLBLADDER AND BILE DUCTS: Cholecystectomy clips in the gallbladder fossa. Follow-up are unremarkabl e. PANCREAS: Unremarkable. SPLEEN: Unremarkable. ADRENAL GLANDS: Unremarkable. KIDNEYS AND URETERS: No evidence of hydronephrosis or renal calculus. Simple cyst in left kidney requ ires no follow-up The ureters are unremarkable. PELVIS BLADDER: Unremarkable REPRODUCTIVE: Unremarkable. ABDOMEN & PELVIS STOMACH AND BOWEL: Stomach and duodenum are unremarkable. Scattered diverticula are noted throughout the colon. no evidence of bowel obstruction. PERITONEUM/RETROPERITONEUM: No evidence of pneumoperitoneum or free fluid. VASCULATURE: No evidence of aortic aneurysm. MUSCULOSKELETAL: No acute osseous abnormalities. Bilateral total hip arthroplasty. LYMPH NODES: No gross evidence for lymphadenopathy. SOFT TISSUE/ABDOMINAL WALL: Unremarkable IMPRESSION: 1. No acute process detected. 2. Cholecystectomy clips in the gallbladder fossa.
== END | disposition home or self-care (01) ==
LOC: RADCTMAIN 08:41
PROVIDERS: ATTEND Family Medicine
DX: R10.13 Epigastric pain (principal); R10.811 Right upper quadrant abdominal tenderness; Z90.49 Acquired absence of other specified parts of digestive tract
CPT/HCPCS: 82565; 84520; 74177; 36415; Q9967

== ENCOUNTER → 2024-03-02 | Outpatient (CLI) | payer MEDICARE ==
[2024-03-02 12:01] LABS: African American GFR (CKD) >90 (>60 ml/min/1.73 sqM); Blood Urea Nitrogen 18 mg/dL (7-17); Non-African American GFR(CKD) >90 (>60 ml/min/1.73 sqM)
--- NOTE | 2024-03-02 12:56 | CT ---
EXAMINATION TYPE: CT chest w con DATE OF EXAM: 03/02/2024 COMPARISON: 08/26/2023 HISTORY: Hx solitary pulmonary nodule, lung ca, COPD CT DLP: 212.10 mGycm Automated exposure control for dose reduction was used. CONTRAST: CT scan of the chest is performed with IV Contrast, patient injected with 100 mL of Isovue 300. FINDINGS: LUNGS: Calcified nodule right perihilar region image 32. No additional nodules present. Partial right pneumonectomy changes redemonstrated. There is no pleural effusion or pneumothorax seen. The trache obronchial tree is patent. Mild scattered emphysematous changes noted. MEDIASTINUM: There are no greater than 1 cm hilar or mediastinal lymph nodes. No pericardial effusi on is seen. Stable ascending thoracic aortic aneurysm measuring 4.1 cm in AP dimension versus 4 cm pr eviously. The heart is not enlarged. Right thyroid cystic lesion is redemonstrated. UPPER ABDOMEN: No significant abnormality appreciated. OTHER: No additional significant abnormality is seen. IMPRESSION: 1. No concerning pulmonary nodules or masses. No evidence for recurrent disease.
== END | disposition home or self-care (01) ==
LOC: RADCTMAIN 11:20
PROVIDERS: ATTEND Internal Medicine Critical Care Medicine
DX: R91.1 Solitary pulmonary nodule (principal); J44.9 Chronic obstructive pulmonary disease, unspecified
CPT/HCPCS: 82565; 84520; 71260; 36415; Q9967

== ENCOUNTER → 2024-05-06 | Outpatient (CLI) | payer MEDICARE ==
[2024-05-06 14:34] LABS: African American GFR (CKD) >90 (>60 ml/min/1.73 sqM); Blood Urea Nitrogen 10 mg/dL (7-17); Non-African American GFR(CKD) >90 (>60 ml/min/1.73 sqM)
--- NOTE | 2024-05-06 15:38 | CT ---
EXAMINATION TYPE: CT abdomen pelvis w con CT DLP: 895 mGycm, Automated exposure control for dose reduction was used. DATE OF EXAM: 05/06/2024 3:29 PM COMPARISON: CT abdomen pelvis most recent from 12/30/2023 . CLINICAL INDICATION:Female, 68 years old with history of R10.30 lower abdominal pain; Lower abdominal pain radiating up both sides. TECHNIQUE: Standard CT of the abdomen and pelvis following the administration of 100 cc of Isovue 3 00 IV contrast material and oral contrast. Coronal and sagittal reformats were performed. FINDINGS: LOWER CHEST: Left basilar linear atelectasis. Mild centrilobular emphysematous changes. ABDOMEN LIVER: Unremarkable GALLBLADDER AND BILE DUCTS: Gallbladder is surgically absent with mild intrahepatic and extra hepatic biliary dilatation likely physiologic and a postcholecystectomy change. No evidence of choledocholit hiasis. PANCREAS: Unremarkable. SPLEEN: Unremarkable. ADRENAL GLANDS: Unremarkable. KIDNEYS AND URETERS: No evidence of hydronephrosis or renal calculus. The kidneys enhance symmetrical ly. Left mid kidney 1.9 cm cyst. Contrast is demonstrated within both collecting systems on the delay ed phase. PELVIS BLADDER: Obscured by streak artifact from hip prosthesis. REPRODUCTIVE: Obscured by streak artifact from hip prosthesis. ABDOMEN & PELVIS STOMACH AND BOWEL: Stomach and duodenum are unremarkable. Short segment circumferential wall thickeni ng with diverticula and surrounding fat stranding involving the descending colon (series 3, image 44) . No surrounding organized fluid collection. Additional diverticula demonstrated throughout the dista l colon. Extent visualized. No inflammatory changes within the right lower quadrant. No evidence of bowel obst ruction. Enteric contrast reaches the mid to distal small bowel. PERITONEUM: No evidence of pneumoperitoneum or free fluid. VASCULATURE: Mild atherosclerotic calcifications are present throughout the abdominal aorta and its b ranches. No evidence of aortic aneurysm. MUSCULOSKELETAL: No acute osseous abnormalities. Bilateral total hip arthroplasty changes. Healing le ft pubic superior and inferior pubic rami fractures with callus formation. Fracture lines are still v isible. Grade 1 anterolisthesis of L5 on S1 without evidence of pars defects. Moderate multilevel deg enerative disc disease. LYMPH NODES: No gross evidence for lymphadenopathy. SOFT TISSUE/ABDOMINAL WALL: Unremarkable IMPRESSION: 1. Uncomplicated acute descending colon diverticulitis. 2. Healing left superior and inferior pubic rami fractures with callus formation.
== END | disposition home or self-care (01) ==
LOC: RADCTMAIN 13:32
PROVIDERS: ATTEND Family Medicine
DX: K57.32 Diverticulitis of large intestine without perforation or abscess without bleeding (principal); S32.592A Other specified fracture of left pubis, initial encounter for closed fracture
CPT/HCPCS: 82565; 84520; 74177; 36415; Q9967

== ENCOUNTER 2024-05-14 01:35 | Inpatient (IN) | payer MEDICARE ==
[2024-05-14] MEDS: SODIUM CHLORIDE 0.9% 1,000 ML IV STA (01:58)
[2024-05-14] MEDS: KETOROLAC 15 MG/ML 1 ML VIAL IVP STA (01:59)
[2024-05-14] MEDS: ONDANSETRON 4 MG/2 ML VIAL IVP STA (02:01)
[2024-05-14] MEDS: PANTOPRAZOLE 40 MG/10 ML VIAL IVP STA (02:03)
[2024-05-14 02:04] LABS: Basophils % (A) 0 %; Eosinophils # (A) 0.2 k/uL (0-0.7); Eosinophils % (A) 1 %; HCT 41.2 % (34.0-46.0); HGB 14.1 gm/dL (11.4-16.0); Lymphocytes # (A) 1.7 k/uL (1.0-4.8); Lymphocytes % (A) 10 %; MCHC 34.3 g/dL (31.0-37.0); MCV 90.4 fL (80.0-100.0); Mean Platelet Volume 6.7; Monocytes # (A) 0.7 k/uL (0-1.0); Monocytes % (A) 4 %; Neutrophils # (A) 14.8 k/uL (1.3-7.7); Neutrophils % (A) 84 %; Platelet Count 323 k/uL (150-450); RBC 4.55 m/uL (3.80-5.40); RDW 12.9 % (11.5-15.5); WBC 17.6 k/uL (3.8-10.6)
[2024-05-14] MEDS: MORPHINE SULFATE 4 MG/ML SYRINGE IV STA (02:06)
[2024-05-14 02:20] LABS: ALT 14 U/L (4-34); AST 40 U/L (14-36); African American GFR (CKD) >90 (>60 ml/min/1.73 sqM); Albumin 4.3 g/dL (3.5-5.0); Alkaline Phosphatase 98 U/L (38-126); Amylase 78 U/L (30-110); Anion Gap 10 mmol/L; Blood Urea Nitrogen 8 mg/dL (7-17); Calcium 9.6 mg/dL (8.4-10.2); Carbon Dioxide 20 mmol/L (22-30); Chloride 102 mmol/L (98-107); Glucose 100 mg/dL (74-99); Lipase 112 U/L (23-300); Non-African American GFR(CKD) >90 (>60 ml/min/1.73 sqM); Potassium 3.9 mmol/L (3.5-5.1); Sodium 132 mmol/L (137-145); Total Bilirubin 0.9 mg/dL (0.2-1.3); Total Protein 6.5 g/dL (6.3-8.2)
[2024-05-14 02:21] LABS: INR 0.9 (<1.2); Partial Thromboplastin Time 24.3 sec (22.0-30.0); Prothrombin Time 10.2 sec (10.0-12.5)
--- NOTE | 2024-05-14 02:50 | ED ---
Abdominal Pain HPI - General Chief Complaint: Abdominal Pain Stated Complaint: Diverticulitis Time Seen by Provider: 05/14/24 01:47 Source: patient, family, RN notes reviewed, old records reviewed Mode of arrival: ambulatory Limitations: no limitations - History of Present Illness Initial Comments: This is a 68 female to the ER for evaluation of abdominal pain today. Patient believes she may have colitis with diagnosis of diverticulitis history of same, recent diagnosis of diverticulitis MD Complaint: abdominal pain -: days(s) Location: periumbilical, suprapubic Radiation: suprapubic Migration to: no migration Severity: mild Severity scale (1-10): 2 Quality: cramping, stabbing Improves With: nothing Worsens With: nothing Context: foreign travel Associated Symptoms: nausea, vomiting Treatments Prior to Arrival: NSAIDs - Related Data Home Medications Medication Instructions Recorded Confirmed Albuterol Inhaler [Ventolin Hfa 1 - 2 puff INHALATION RT-Q6H PRN 05/21/19 05/14/24 Inhaler] Amoxic-Pot Clav 500-125 mg 1 tab PO Q12HR 05/14/24 05/14/24 [Augmentin 500-125 mg] Dicyclomine [Bentyl] 20 mg PO QID PRN 05/14/24 05/14/24 Estradiol Cream [Estrace Cream 1 gm VAGINAL WEEKLY 05/14/24 05/14/24 0.01%] Fluticasone/Umeclidin/Vilanter 1 puff INHALATION RT-DAILY 05/14/24 05/14/24 [Trelegy Ellipta 200-62.5-25] Omeprazole [PriLOSEC] 20 mg PO AC-LUNCH 05/14/24 05/14/24 Allergies Allergy/AdvReac Type Severity Reaction Status Date / Time No Known Allergies Allergy Verified 05/14/24 07:13 Review of Systems ROS Statement: Those systems with pertinent positive or pertinent negative responses have been documented in the HPI. ROS Other: All systems not noted in ROS Statement are negative. Past Medical History Past Medical History: Cancer, COPD, Musculoskeletal Disorder, Osteoarthritis (OA), Respiratory Disorder Additional Past Medical History / Comment(s): Right middle lobe lung cancer 2 023(Surgery only), Varicose veins. 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 PAST [employer] INS[employer]OR HISTORY: She has no history of STDs, diverticulitis History of Any Multi-Drug Resistant Organisms: None Reported Past Surgical History: Appendectomy, Section, Cholecystectomy, Joint Replacement, Orthopedic Surgery, Tonsillectomy Additional Past Surgical History / Comment(s): Partial hysterectomy - bilateral salpingectomy(no oophorectomy), bilateral hip replacements, knee surgery, shoulder surgery, colonoscopy X3. Right middle lobe of the lung removed 2022. Past Anesthesia/Blood Transfusion Reactions: Previous Problems w/ Anesthesia Additional Past Anesthesia/Blood Transfusion Reaction / Comment(s): States BP dropped with last surgery(hip replacement). Past Psychological History: No Psychological Hx Reported Smoking Status: Former smoker Past Alcohol Use History: Rare Past Drug Use History: None Reported - Past Family History Mother Family Medical History: Cancer Additional Family Medical History / Comment(s): Breast and lung cancer. Mother's twin sister had breast cancer. General Exam Limitations: no limitations General appearance: alert, in no apparent distress Head exam: Present: atraumatic, normocephalic, normal inspection Eye exam: Present: normal appearance, PERRL, EOMI. Absent: scleral icterus, conjunctival injection, periorbital swelling ENT exam: Present: normal exam, mucous membranes moist Neck exam: Present: normal inspection. Absent: tenderness, meningismus, lymphadenopathy Respiratory exam: Present: normal lung sounds bilaterally. Absent: respiratory distress, wheezes, rales, rhonchi, stridor Cardiovascular Exam: Present: regular rate, normal rhythm, normal heart sounds. Absent: systolic murmur, diastolic murmur, rubs, gallop, clicks GI/Abdominal exam: Present: soft, normal bowel sounds. Absent: distended, tenderness, guarding, rebound, rigid Extremities exam: Present: normal inspection, full ROM, normal capillary refill. Absent: tenderness, pedal edema, joint swelling, calf tenderness Back exam: Present: normal inspection Neurological exam: Present: alert, oriented X3, CN II-XII intact Psychiatric exam: Present: normal affect, normal mood Skin exam: Present: warm, dry, intact, normal color. Absent: rash Course Vital Signs 05/14/24 05/14/24 05/14/24 01:36 06:42 07:59 Temperature 98.1 F 98.7 F Pulse Rate 110 H 77 72 Respiratory 20 17 18 Rate Blood Pressure 133/89 130/68 119/70 O2 Sat by Pulse 98 96 97 Oximetry 0905/14/24 05/14/24 12:00 16:00 20:00 Temperature Pulse Rate 76 68 70 Respiratory 16 18 16 Rate Blood Pressure 132/75 126/77 126/72 O2 Sat by Pulse 97 98 98 Oximetry - Reevaluation(s) Reevaluation #1: 05/14/24 02:49 Records reviewed Reevaluation #2: 05/14/24 02:49 Patient symptoms improved Reevaluation #3: 05/14/24 06:11 Patient informed of results questions answered Reevaluation #4: 05/14/24 02:49 Was pt. sent in by a medical professional or institution (, [facility], [facility], urgent care, hospital, or usp...) When possible be specific @ -no Did you speak to anyone other than the patient for history (EMS, parent, family, police, friend...)? What history was obtained from this source @ -no Did you review nursing and triage notes (agree or disagree)? Why? @ -agree Are old charts reviewed (outside hosp., previous admission, EMS record, old EKG, old radiological studies, urgent care reports/EKG's, usp records)? Report findings @ -yes Differential Diagnosis (chest pain, altered mental status, abdominal pain women, abdominal pain men, vaginal bleeding, weakness, fever, dyspnea, syncope, headache, dizziness, GI bleed, back pain, seizure, CVA, palpatations, mental health, musculoskeletal)? @ -prior EKG interpreted by me (3pts min.). @ -no X-rays interpreted by me (1pt min.). @ -no CT interpreted by me (1pt min.). @ -yes negative for acute disease U/S interpreted by me (1pt. min.). @ -no What testing was considered but not performed or refused? (CT, X-rays, U/S, labs)? Why? @ -none What meds were considered but not given or refused? Why? @ -none Did you discuss the management of the patient with other professionals (professionals i.e. [facility] Stone, [facility], lab, RT, psych nurse, social psychologist, metal casket maker, teacher, aerospace engineer officer armament, medical case worker)? Give summary @ -no Was smoking cessation discussed for >3mins.? @ -no Was critical care preformed (if so, how long)? @ -no Were there social determinants of health that impacted care today? How? (Homelessness, low income, unemployed, alcoholism, drug addiction, transportation, low edu. Level, literacy, decrease access to med. care, halfway, rehab)? @ -none Was there de-escalation of care discussed even if they declined (Discuss DNR or withdrawal of care, Hospice)? DNR status @ -no What co-morbidities impacted this encounter? (DM, HTN, Smoking, COPD, CAD, Cancer, CVA, ARF, Chemo, Hep., AIDS, mental health diagnosis, sleep apnea, morbid obesity)? @ -none Was patient admitted / discharged? Hospital course, mention meds given and route, prescriptions, significant lab abnormalities, going to OR and other pertinent info. @ - 68 female will be admitted for diverticulitis failed outpatient treatment Admitted Undiagnosed new problem with uncertain prognosis? @ -no Drug Therapy requiring intensive monitoring for toxicity (Heparin, Nitro, Insulin, Cardizem)? @ -no Were any procedures done? @ -no Diagnosis/symptom? @ -Diverticulitis Acute, or Chronic, or Acute on Chronic? @ -Acute Uncomplicated (without systemic symptoms) or Complicated (systemic symptoms)? @ -Complicated Side effects of treatment? @ -no Exacerbation, Progression, or Severe Exacerbation? @ -exacerbation Poses a threat to life or bodily function? How? (Chest pain, USA, AR, pneumonia, PE, COPD, DKA, ARF, appy, cholecystitis, CVA, Diverticulitis, Homicidal, Suicidal, threat to staff... and all critical care pts) @ -yes significant infection Reevaluation #5: Differential Abdominal Pain Women: Appendicitis, Cholecystitis, diverticulosis, ischemic bowel, pancreatitis, hepatitis, UTI, gastroenteritis, AAA, incarcerated hernia, bowel obstruction, constipation, inflammatory bowel, hepatitis, peptic ulcer disease, splenic infarction, perforated viscus, vulvitis, ovarian torsion, PID, kidney stone, placenta abruption, this is not meant to be an all-inclusive list - Consultations Consultation #1: With [facility] who agrees to admit this patient Medical Decision Making - Medical Decision Making 68 female will be admitted for diverticulitis failed outpatient treatment - Lab Data Result diagrams: 05/16/24 05:12 05/16/24 05:12 Lab Results 05/14/24 05/14/24 05/14/24 Range/Units 01:52 01:52 01:52 WBC 17.6 H (3.8-10.6) k/uL RBC 4.55 (3.80-5.40) m/uL Hgb 14.1 (11.4-16.0) gm/dL Hct 41.2 (34.0-46.0) % MCV 90.4 (80.0-100.0) fL MCH 31.0 (25.0-35.0) pg MCHC 34.3 (31.0-37.0) g/dL RDW 12.9 (11.5-15.5) % Plt Count 323 (150-450) k/uL MPV 6.7 Neutrophils % 84 % Lymphocytes % 10 % Monocytes % 4 % Eosinophils % 1 % Basophils % 0 % Neutrophils # 14.8 H (1.3-7.7) k/uL Lymphocytes # 1.7 (1.0-4.8) k/uL Monocytes # 0.7 (0-1.0) k/uL Eosinophils # 0.2 (0-0.7) k/uL Basophils # 0.0 (0-0.2) k/uL PT 10.2 (10.0-12.5) sec INR 0.9 (<1.2) APTT 24.3 (22.0-30.0) sec Sodium 132 L (137-145) mmol/L Potassium 3.9 (3.5-5.1) mmol/L Chloride 102 (98-107) mmol/L Carbon Dioxide 20 L (22-30) mmol/L Anion Gap 10 mmol/L BUN 8 (7-17) mg/dL Creatinine 0.54 (0.52-1.04) mg/dL Est GFR (CKD-EPI)AfAm >90 (>60 ml/min/1.73 sqM) Est GFR (CKD-EPI)NonAf >90 (>60 ml/min/1.73 sqM) Glucose 100 H (74-99) mg/dL Plasma Lactic Acid Guido (0.7-2.0) mmol/L Calcium 9.6 (8.4-10.2) mg/dL Total Bilirubin 0.9 (0.2-1.3) mg/dL AST 40 H (14-36) U/L ALT 14 (4-34) U/L Alkaline Phosphatase 98 (38-126) U/L Total Protein 6.5 (6.3-8.2) g/dL Albumin 4.3 (3.5-5.0) g/dL Amylase 78 (30-110) U/L Lipase 112 (23-300) U/L 05/14/24 Range/Units 01:52 WBC (3.8-10.6) k/uL RBC (3.80-5.40) m/uL Hgb (11.4-16.0) gm/dL Hct (34.0-46.0) % MCV (80.0-100.0) fL MCH (25.0-35.0) pg MCHC (31.0-37.0) g/dL RDW (11.5-15.5) % Plt Count (150-450) k/uL MPV Neutrophils % % Lymphocytes % % Monocytes % % Eosinophils % % Basophils % % Neutrophils # (1.3-7.7) k/uL Lymphocytes # (1.0-4.8) k/uL Monocytes # (0-1.0) k/uL Eosinophils # (0-0.7) k/uL Basophils # (0-0.2) k/uL PT (10.0-12.5) sec INR (<1.2) APTT (22.0-30.0) sec Sodium (137-145) mmol/L Potassium (3.5-5.1) mmol/L Chloride (98-107) mmol/L Carbon Dioxide (22-30) mmol/L Anion Gap mmol/L BUN (7-17) mg/dL Creatinine (0.52-1.04) mg/dL Est GFR (CKD-EPI)AfAm (>60 ml/min/1.73 sqM) Est GFR (CKD-EPI)NonAf (>60 ml/min/1.73 sqM) Glucose (74-99) mg/dL Plasma Lactic Acid Guido 1.0 (0.7-2.0) mmol/L Calcium (8.4-10.2) mg/dL Total Bilirubin (0.2-1.3) mg/dL AST (14-36) U/L ALT (4-34) U/L Alkaline Phosphatase (38-126) U/L Total Protein (6.3-8.2) g/dL Albumin (3.5-5.0) g/dL Amylase (30-110) U/L Lipase (23-300) U/L - Radiology Data Radiology results: report reviewed (CT of the Abdomen pelvis positive for diverticulitis), image reviewed Disposition Clinical Impression: Abdominal pain, Diverticulitis Disposition: ADMITTED IP TO THIS [facility] Condition: Fair Is patient prescribed a controlled substance at d/c from ED?: No Time of Disposition: 05:00
[2024-05-14] MEDS ORDERED: NALOXONE 0.4 MG/ML 1 ML VIAL IV PRN (06:09)
[2024-05-14] MEDS ORDERED: MORPHINE SULFATE 4 MG/ML SYRINGE IV PRN (06:09)
--- NOTE | 2024-05-14 06:44 | CT ---
EXAM: CT Abdomen and Pelvis With Intravenous Contrast CLINICAL HISTORY: was seen by PCP and had CT completed and diagnosed with diverticulitis. Placed on abt. Comes in due to increased abdominal pain, diarrhea and nausea/vomiting. Blood work and stool samples sent her yesterday. hx of lung CA, cholecystectomy, appendectomy and partial hysterectomy TECHNIQUE: Axial computed tomography images of the abdomen and pelvis with intravenous contrast. CTDI is 14.1 mGy and DLP is 611.2 mGy-cm. This CT exam was performed using one or more of the following dose reduction techniques: automated exposure control, adjustment of the mA and/or kV according to patient size, and/or use of iterative reconstruction technique. Coronal and sagittal reformatted images were created and reviewed. 602 images COMPARISON: 12-30-23 FINDINGS: Lung bases: Minimal bibasilar atelectasis. ABDOMEN: Liver: Unremarkable. No mass. Gallbladder and bile ducts: Mild intra-and extrahepatic biliary duct dilatation is likely related to cholecystectomy and the patient's age. Pancreas: Unremarkable. No mass. No ductal dilation. Spleen: Unremarkable. No splenomegaly. Adrenals: Unremarkable. No mass. Kidneys and ureters: Small left renal cysts larger one measures about 2 cm, unchanged. Stomach and bowel: Short segment of distal descending colon at the level of iliac crest has circumferential wall thickening with associated diverticula, surrounded by trace of mesenteric inflammation, best seen on series 202 images 35-60, indicating diverticulitis. No obstruction. PELVIS: Appendix: Appendectomy. Bladder: Unremarkable. No mass. Reproductive: Uterus and ovaries are not seen.. ABDOMEN and PELVIS: Intraperitoneal space: Unremarkable. No free air. No significant fluid collection. Bones/joints: Grade 1 anterolisthesis of L5 on S1. Moderate degenerative changes. Osteopenia. Total bilateral hip replacement prosthesis because large amount of streak artifact, which decreased the sensitivity unassociated images. Old left pubic rami fractures mild lower lumbar sclerosis convexed to the right. Soft tissues: Unremarkable. Vasculature: Unremarkable. No abdominal aortic aneurysm. Lymph nodes: Unremarkable. No enlarged lymph nodes. IMPRESSION: Short segment of distal descending colon at the level of iliac crest has circumferential wall thickening with associated diverticula, surrounded by trace of mesenteric inflammation, indicating diverticulitis. No perforation or abscess.
[2024-05-14] MEDS: HYDROmorphone 1 MG/ML 1 ML SYRINGE IVP STA (06:45)
[2024-05-14] MEDS: SODIUM CHLORIDE 0.9% 1,000 ML IV SCH ×2 (06:49→12:21)
[2024-05-14] MEDS ORDERED: ALBUTEROL NEBULIZED 2.5 MG/3 ML INHALATION PRN (09:57)
[2024-05-14] MEDS ORDERED: AMOXIC-POT CLAV 500-125 MG 1 EACH TAB PO SCH (12:00)
[2024-05-14] MEDS: AMPICILLIN-SULBACTAM 3 GM in SODIUM CHLORIDE 0.9% 100 ML IVPB SCH (12:20)
[2024-05-14] MEDS ORDERED: NON FORMULARY DRUG (Omeprazole 20 MG Capsule.Dr) PO SCH (12:30)
--- NOTE | 2024-05-14 12:44 | P.HPIM ---
History of Present Illness H&P Date: 05/14/24 Patient is a 68-year-old female with a history of , hysterectomy, appendectomy, cholecystectomy who came in for abdominal pain. Patient was being evaluated by PCP for same complaint 1 week ago and on imaging was determined that she had diverticulitis. She reports pain is colicky and average intensity of 7 out of 10 in the right and left lower quadrants and radiates to the upper quadrant of the abdomen. However yesterday pain worsened to 11 out of 10 with associated diarrhea and nausea she denies hematochezia, hematemesis, constipation, jaundice, weight loss, fever, chills, chest pain, new onset cough, shortness of breath, dysuria, or hematuria. Wall thickening of distal descending colon negative for perforation or abscess. WBC 17.6 sodium 132 BUN 8 creatinine 0.54 glucose 100 amylase 58 lipase 112. Vitals on admission when unremarkable except for tachycardia at 110 ED documentation reviewed. Review of systems: Pertinent positives and negatives as discussed in HPI, a complete review of systems was performed and all other systems are negative. Family history: mother . Known to have lung CA. Father known to have emphysema Social history: Tobacco: 60 pack year history. Quit 20 years ago Alcohol: occasional ETOH intake Recreational drugs: denies illicit drug use Travel: no recent travel Physical examination: Vital signs reviewed General: non toxic, no distress, appears at stated age, normal weight Derm: no unusual rashes/lesions, warm Head: atraumatic, normocephalic, symmetric Eyes: EOMI, no lid lag, anicteric sclera, pupils equal round reactive to light ENT: Nose and ears atraumatic Neck: No cervical lymphadenopathy, trachea midline, supple Mouth: no lip lesion, mucus membranes moist Cardiovascular: S1S2 reg, no murmur, Lungs: CTA bilateral, no rhonchi, no rales, no accessory muscle use Abdominal: soft, nondistended left lower quadrant tenderness on light palpation, no guarding Ext: muscle strength 5 out of 5 in all 4 extremities grossly, no gross muscle atrophy, no contractures, positive dorsalis pedis pulse bilateral, no edema Neuro: CN II-XI grossly intact, no gross focal neuro deficits Psych: Alert, oriented, appropriate affect and mood Assessment/Plan: #. Diverticulitis of the descending colon #. Mild hyponatremia Patient currently stable and symptoms tolerated with medical management. CT bunny ws wall thickening of distal descending colon negative for perforation or abscess. WBC 17.6 which is elevated. Amylase 58 lipase 112 which are normal levels. -Clear liquid diet. Advance tomorrow if patient symptoms improved. -IVF 0.9% NaCl 75 cc/h -Continue with Zofran 4 mg IV push every 8 hours as needed for nausea -Pain control with Tylenol 650 PO every 4 hours as needed for pain -Unasyn 3 g IVPB every 6 hours for prophylaxis -Monitor CBC, CMP, Mag and Phos Chronic conditions: COPD, lung cancer, osteoporosis, former smoker DVT prophylaxis: Routine. encourage ambulation GI prophylaxis: Pantoprazole 40 mg IV OD The patient is admitted with an anticipated more than 2 midnight stay for e valuation of abdominal pain CODE STATUS: Full Discussed with: patient Anticipated discharge place: Home Past Medical History Past Medical History: Cancer, COPD, Musculoskeletal Disorder, Osteoarthritis (OA), Respiratory Disorder Additional Past Medical History / Comment(s): Right middle lobe lung cancer 2022(Surgery only), Varicose veins. 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 Right middle lobe of the lung removed 2022. Past Anesthesia/Blood Transfusion Reactions: Previous Problems w/ Anesthesia Additional Past Anesthesia/Blood Transfusion Reaction / Comment(s): States BP dropped with last surgery(hip replacement). Past Psychological History: No Psychological Hx Reported Smoking Status: Former smoker Past Alcohol Use History: Rare Past Drug Use History: None Reported - Past Family History Mother Family Medical History: Cancer Additional Family Medical History / Comment(s): Breast and lung cancer. Luis E bryant's twin sister had breast cancer. Medications and Allergies Home Medications Medication Instructions Recorded Confirmed Type Albuterol Inhaler [Ventolin Hfa 1 - 2 puff INHALATION RT-Q6H PRN 05/21/19 05/14/24 History Inhaler] Amoxic-Pot Clav 500-125 mg 1 tab PO Q12HR 05/14/24 05/14/24 History [Augmentin 500-125 mg] Dicyclomine [Bentyl] 20 mg PO QID PRN 05/14/24 05/14/24 History Estradiol Cream [Estrace Cream 1 gm VAGINAL WEEKLY 05/14/24 05/14/24 History 0.01%] Fluticasone/Umeclidin/Vilanter 1 puff INHALATION RT-DAILY 05/14/24 05/14/24 History [Trelegy Ellipta 200-62.5-25] Omeprazole [PriLOSEC] 20 mg PO AC-LUNCH 05/14/24 05/14/24 History Allergies Allergy/AdvReac Type Severity Reaction Status Date / Time No Known Allergies Allergy Verified 05/14/24 07:13 Physical Exam Vitals: Vital Signs Temp Pulse Resp BP Pulse Ox 05/14/24 06:42 98.7 F 77 17 130/68 96 05/14/24 01:36 98.1 F 110 H 20 133/89 98 Intake and Output 05/13/24 05/14/24 05/14/24 22:59 06:59 14:59 Other: Weight 62.596 kg Results CBC & Chem 7: 05/14/24 01:52 05/14/24 01:52 Labs: Abnormal Lab Results - Last 24 Hours (Table) 05/14/24 05/14/24 Range/Units 01:52 01:52 WBC 17.6 H (3.8-10.6) k/uL Neutrophils # 14.8 H (1.3-7.7) k/uL Sodium 132 L (137-145) mmol/L Carbon Dioxide 20 L (22-30) mmol/L Glucose 100 H (74-99) mg/dL AST 40 H (14-36) U/L
[2024-05-14] MEDS: ACETAMINOPHEN TAB 325 MG TAB PO PRN (14:44)
--- NOTE | 2024-05-14 15:08 | P.CON ---
Consult Note - . Consult date: 05/14/24 Assessment/Plan:: Patient is a 68-year-old female with a history of , hysterectomy, appendectomy, cholecystectomy who came in for abdominal pain. Patient was being evaluated by PCP for same complaint 1 week ago and on imaging was determined that she had diverticulitis. She reports pain is in left lower quadrants and radiates to the upper quadrant of the abdomen. She states she has associated diarrhea and nausea she denies hematochezia, hematemesis, constipation, jaundice, weight loss, fever, chills, chest pain, new onset cough, shortness of breath, dysuria, or hematuria. Review of Systems ROS Statement: Those systems with pertinent positive or pertinent negative responses have been documented in the HPI. ROS Other: All systems not noted in ROS Statement are negative. Past Medical History Past Medical History: Cancer, COPD, Musculoskeletal Disorder, Osteoarthritis (OA), Respiratory Disorder Additional Past Medical History / Comment(s): Right middle lobe lung cancer 2022(Surgery only), Varicose veins. 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 Right middle lobe of the lung removed 2022. Past Anesthesia/Blood Transfusion Reactions: Previous Problems w/ Anesthesia Additional Past Anesthesia/Blood Transfusion Reaction / Comment(s): States BP dropped with last surgery(hip replacement). Past Psychological History: No Psychological Hx Reported Smoking Status: Former smoker Past Alcohol Use History: Rare Past Drug Use History: None Reported - Past Family History Mother Family Medical History: Cancer Additional Family Medical History / Comment(s): Breast and lung cancer. Mother's twin sister had breast cancer. General Exam Limitations: no limitations General appearance: alert, in no apparent distress Head exam: Present: atraumatic, normocephalic, normal inspection Eye exam: Present: normal appearance, PERRL, EOMI. Absent: scleral icterus, conjunctival injection, periorbital swelling ENT exam: Present: normal exam, mucous membranes moist Neck exam: Present: normal inspection. Absent: tenderness, meningismus, lymphadenopathy Respiratory exam: Present: normal lung sounds bilaterally. Absent: respiratory distress, wheezes, rales, rhonchi, stridor Cardiovascular Exam: Present: regular rate, normal rhythm, normal heart sounds. Absent: systolic murmur, diastolic murmur, rubs, gallop, clicks GI/Abdominal exam: Present: soft, normal bowel sounds. Absent: distended, tenderness, guarding, rebound, rigid Extremities exam: Present: normal inspection, full ROM, normal capillary refill. Absent: tenderness, pedal edema, joint swelling, calf tenderness Back exam: Present: normal inspection Neurological exam: Present: alert, oriented X3, CN II-XII intact Psychiatric exam: Present: normal affect, normal mood Skin exam: Present: warm, dry, intact, normal color. Absent: rash 68 year old female with Diverticulitis -CLD -Unasyn -Nausea and Pain Control -Patient will need outpatient colonoscopy in 4-6 weeks -Further recs pending clinical course Donte Skaggs DO [facility] [phone]
[2024-05-14] MEDS ORDERED: PIPERACILLIN-TAZOBACTAM 3.375 GM in SODIUM CHLORIDE 0.9% 100 ML IVPB SCH (16:00)
[2024-05-15] MEDS: PANTOPRAZOLE 40 MG/10 ML VIAL IV SCH (08:16)
[2024-05-15] MEDS: SYMBICORT 80-4.5 MCG INHALER INHALATION SCH (09:17)
[2024-05-15] MEDS: IPRATROPIUM 0.5 MG/2.5 ML NEBU INHALATION SCH (09:17)
[2024-05-15 09:39] LABS: Basophils # (A) 0.04 X 10*3/uL (0.00-0.10); Basophils % (A) 0.6 %; Eosinophils # (A) 0.25 X 10*3/uL (0.04-0.35); Eosinophils % (A) 3.8 %; HCT 36.8 % (37.2-50.0); HGB 12.6 g/dL (12.0-17.0); Lymphocytes # (A) 1.59 X 10*3/uL (0.90-5.00); Lymphocytes % (A) 24.2 %; MCH 31.7 pg (27.0-32.0); MCHC 34.2 g/dL (32.0-37.0); MCV 92.7 FL (80.0-97.0); Mean Platelet Volume 9.3 FL (9.5-12.2); Monocytes # (A) 0.57 X 10*3/uL (0.20-1.00); Monocytes % (A) 8.7 %; NRBC Per 100 WBC 0 X 10*3/uL (0.00-0.01); Neutrophils # (A) 4.11 X 10*3/uL (1.80-7.70); Neutrophils % (A) 62.5 %; Platelet Count 252 X 10*3/uL (140-440); RBC 3.97 X 10*6/uL (4.10-5.60); RDW 12.7 % (11.5-14.5); WBC 6.57 X 10*3/uL (4.50-10.00)
[2024-05-15 10:09] LABS: ALT 13 U/L (8-49); AST 27 U/L (13-35); Albumin 3.6 g/dL (3.8-4.9); Albumin/Globulin Ratio 2.25 Ratio (1.60-3.17); Alkaline Phosphatase 89 U/L (41-126); BUN/Creat Ratio <7.00 Ratio (12.00-20.00); Blood Urea Nitrogen <3.5 mg/dL (9.0-27.0); Calcium 8.5 mg/dL (8.7-10.3); Carbon Dioxide 25.2 mmol/L (21.6-31.8); Chloride 109 mmol/L (96-109); Globulin 1.6 g/dL (1.6-3.3); Glucose 89 mg/dL (70-110); Magnesium 1.9 mg/dL (1.5-2.4); Phosphorus 3.7 mg/dL (2.4-5.1); Potassium 4.1 mmol/L (3.5-5.5); Sodium 142 mmol/L (135-145); Total Bilirubin 0.4 mg/dL (0.3-1.2); Total Protein 5.2 g/dL (6.2-8.2)
--- NOTE | 2024-05-15 10:36 | P.PN ---
Progress Note - Text Progress Note Date: 05/15/24 Patient Seen and Examined. Pain is improving. Tolerated CLD. Denies nausea and vomiting. WBC has normalized. General Exam Limitations: no limitations General appearance: alert, in no apparent distress Head exam: Present: atraumatic, normocephalic, normal inspection Eye exam: Present: normal appearance, PERRL, EOMI. Absent: scleral icterus, conjunctival injection, periorbital swelling ENT exam: Present: normal exam, mucous membranes moist Neck exam: Present: normal inspection. Absent: tenderness, meningismus, lymphadenopathy Respiratory exam: Present: normal lung sounds bilaterally. Absent: respiratory distress, wheezes, rales, rhonchi, stridor Cardiovascular Exam: Present: regular rate, normal rhythm, normal heart sounds. Absent: systolic murmur, diastolic murmur, rubs, gallop, clicks GI/Abdominal exam: Present: soft, normal bowel sounds. Absent: distended, tenderness, guarding, rebound, rigid Extremities exam: Present: normal inspection, full ROM, normal capillary refill. Absent: tenderness, pedal edema, joint swelling, calf tenderness Back exam: Present: normal inspection Neurological exam: Present: alert, oriented X3, CN II-XII intact Psychiatric exam: Present: normal affect, normal mood Skin exam: Present: warm, dry, intact, normal color. Absent: rash 68 year old female with Diverticulitis -will advance to KYD -Unasyn -Nausea and Pain Control -Patient will need outpatient colonoscopy in 4-6 weeks -Further recs pending clinical course Donte Skaggs [facility] [phone]
[2024-05-15] MEDS: ONDANSETRON 4 MG/2 ML VIAL IVP PRN (10:43)
[2024-05-15] MEDS: KETOROLAC 15 MG/ML 1 ML VIAL IVP SCH (13:16)
--- NOTE | 2024-05-15 16:07 | P.PN ---
Subjective Progress Note Date: 05/15/24 cece is a 68-year-old female with a history of , hysterectomy, appendectomy, cholecystectomy who came in for abdominal pain. Patient was being evaluated by PCP for same complaint 1 week ago and on imaging was determined that she had diverticulitis. She reports pain is colicky and average intensity of 7 out of 10 in the right and left lower quadrants and radiates to the upper quadrant of the abdomen. However yesterday pain worsened to 11 out of 10 with associated diarrhea and nausea she denies hematochezia, hematemesis, constipation, jaundice, weight loss, fever, chills, chest pain, new onset cough, shortness of breath, dysuria, or hematuria. Wall thickening of distal descending colon negative for perforation or abscess. WBC 17.6 sodium 132 BUN 8 creatinine 0.54 glucose 100 amylase 58 lipase 112. Vitals on admission when unremarkable except for tachycardia at 110 09/07 Patient seen and examined at bedside. Patient reports she feels bloated and her pain is only mildly controlled with medication she notes an intensity of 6-7 out of 10. She had bowel movements that were loose or with soft stool. WBC 6.57 hemoglobin 12.6 platelet 252 sodium 142 potassium 4.1 BUN less than 3.5 creatinine 0.5 calcium 8.5 total protein 5.2 albumin 3.6 Review of systems: Pertinent positives and negatives as discussed in HPI, a complete review of systems was performed and all other systems are negative. Physical examination: Vital signs reviewed General: non toxic, no distress, appears at stated age, normal weight Derm: no unusual rashes/lesions, warm Head: atraumatic, normocephalic, symmetric Eyes: EOMI, no lid lag, anicteric sclera, pupils equal round reactive to light ENT: Nose and ears atraumatic Neck: No cervical lymphadenopathy, trachea midline, supple Mouth: no lip lesion, mucus membranes moist Cardiovascular: S1S2 reg, no murmur, Lungs: CTA bilateral, no rhonchi, no rales, no accessory muscle use Abdominal: soft, nondistended left lower quadrant tenderness on light palpation, no guarding Ext: muscle strength 5 out of 5 in all 4 extremities grossly, no gross muscle atrophy, no contractures, positive dorsalis pedis pulse bilateral, no edema Neuro: CN II-XI grossly intact, no gross focal neuro deficits Psych: Alert, oriented, appropriate affect and mood Assessment/Plan: #. Diverticulitis of the descending colon #. Mild hyponatremia, resolved Patient currently stable and symptoms tolerated with medical management. CT shows wall thickening of distal descending colon negative for perforation or abscess. WBC 6.57 which is has normalized. Amylase 58 lipase 112 which are normal levels. -Per surgery, patient will need outpatient colonoscopy in 4 to 6 weeks -Advance to full liquid diet -IVF 0.9% NaCl 75 cc/h -Continue with Zofran 4 mg IV push every 8 hours as needed for nausea -Pain control with Tylenol 650 mg p.o. every 4 as needed Toradol 15mg every 6 as needed for pain -Discontinue Unasyn IV -Rocephin 2 g IVPB OT and Flagyl 500 mg p.o. 3 times daily for antibiotic prophylaxis -Monitor CBC, BMP at AM Chronic conditions: COPD, lung cancer, osteoporosis, former smoker DVT prophylaxis: Routine. encourage ambulation GI prophylaxis: Pantoprazole 40 mg IV OD Attestation: I have personally seen and examined the patient with Resident, reviewed the documentation and participated and agree with the assessment and plan as written. Objective - Vital Signs Vital signs: Vital Signs Temp 97.9 F 05/15/24 02:00 Pulse 76 05/15/24 02:00 Resp 16 05/14/24 20:00 BP 128/66 05/15/24 02:00 Pulse Ox 96 05/15/24 02:00 FiO2 Intake & Output 05/14/24 05/15/24 05/15/24 18:59 06:59 18:59 Intake Total 1150 Balance 1150 Weight 62.596 kg Intake: Intake, IV Titration 650 Amount Ampicillin-Sulbactam 3 gm 200 In Sodium Chloride 0.9% 100 ml @ 200 mls/hr IVPB Q6HR [facility] Rx#:[id number] Sodium Chloride 0.9% 1, 450 000 ml @ 75 mls/hr IV . [id number] [facility] Rx#:[id number] Oral 500 Other: # Voids 3 # Bowel Movements 2 - Labs CBC & Chem 7: 05/15/24 05:14 05/15/24 05:14
[2024-05-15] MEDS: metroNIDAZOLE 500 MG TAB PO SCH (17:06)
--- NOTE | 2024-05-16 06:59 | P.PN ---
Progress Note - Text Progress Note Date: 05/16/24 Patient Seen and Examined. Pain is improving. Tolerated FLD. Denies nausea and vomiting. WBC has normalized. AM labs pending General Exam Limitations: no limitations General appearance: alert, in no apparent distress Head exam: Present: atraumatic, normocephalic, normal inspection Eye exam: Present: normal appearance, PERRL, EOMI. Absent: scleral icterus, conjunctival injection, periorbital swelling ENT exam: Present: normal exam, mucous membranes moist Neck exam: Present: normal inspection. Absent: tenderness, meningismus, lymphadenopathy Respiratory exam: Present: normal lung sounds bilaterally. Absent: respiratory distress, wheezes, rales, rhonchi, stridor Cardiovascular Exam: Present: regular rate, normal rhythm, normal heart sounds. Absent: systolic murmur, diastolic murmur, rubs, gallop, clicks GI/Abdominal exam: Present: soft, normal bowel sounds. Absent: distended, tenderness, guarding, rebound, rigid Extremities exam: Present: normal inspection, full ROM, normal capillary refill. Absent: tenderness, pedal edema, joint swelling, calf tenderness Back exam: Present: normal inspection Neurological exam: Present: alert, oriented X3, CN II-XII intact Psychiatric exam: Present: normal affect, normal mood Skin exam: Present: warm, dry, intact, normal color. Absent: rash 68 year old female with Diverticulitis -Advanced to LFD -Unasyn -Nausea and Pain Control -Patient will need outpatient colonoscopy in 4-6 weeks and elective colectomy. Follow up information in discharge paperwork. -Further recs pending clinical course Donte Skaggs DO [facility] [phone]
[2024-05-16 08:21] VITALS: RESP 16
[2024-05-16 10:06] LABS: BUN/Creat Ratio <5.83 Ratio (12.00-20.00); Blood Urea Nitrogen <3.5 mg/dL (9.0-27.0); Calcium 8.8 mg/dL (8.7-10.3); Carbon Dioxide 24.7 mmol/L (21.6-31.8); Chloride 104 mmol/L (96-109); Glucose 86 mg/dL (70-110); Potassium 3.7 mmol/L (3.5-5.5); Sodium 139 mmol/L (135-145)
[2024-05-16 10:21] LABS: HGB 12.8 g/dL (12.0-17.0); MCH 30.8 pg (27.0-32.0); MCHC 33.7 g/dL (32.0-37.0); MCV 91.3 FL (80.0-97.0); Mean Platelet Volume 9.2 FL (9.5-12.2); NRBC Per 100 WBC 0 X 10*3/uL (0.00-0.01); Platelet Count 291 X 10*3/uL (140-440); RBC 4.16 X 10*6/uL (4.10-5.60); RDW 12.6 % (11.5-14.5); WBC 4.85 X 10*3/uL (4.50-10.00)
--- NOTE | 2024-05-16 15:01 | P.PN ---
Subjective Progress Note Date: 05/16/24 Interval History: Patient is a 68-year-old female with a history of , hysterectomy, appendectomy, cholecystectomy who came in for abdominal pain. Patient was being evaluated by PCP for same complaint 1 week ago and on imaging was determined that she had diverticulitis. She reports pain is colicky and average intensity of 7 out of 10 in the right and left lower quadrants and radiates to the upper quadrant of the abdomen. However yesterday pain worsened to 11 out of 10 with associated diarrhea and nausea she denies hematochezia, hematemesis, constipation, jaundice, weight loss, fever, chills, chest pain, new onset cough, shortness of breath, dysuria, or hematuria. Wall thickening of distal descending colon negative for perforation or abscess. WBC 17.6 sodium 132 BUN 8 creatinine 0.54 glucose 100 amylase 58 lipase 112. Vitals on admission when unremarkable except for tachycardia at 110 05/15 Patient seen and examined at bedside. Patient reports she feels bloated and her pain is only mildly controlled with medication she notes an intensity of 6-7 out of 10. She had bowel movements that were loose or with soft stool. WBC 6.57 hemoglobin 12.6 platelet 252 sodium 142 potassium 4.1 BUN less than 3.5 creatinine 0.5 calcium 8.5 total protein 5.2 albumin 3.6 05/16/2024--patient was seen and examined today. Afebrile. Complained of nausea and abdominal pain earlier today, which is now improving. Currently on full liquid diet. Remains on Rocephin and Flagyl. Assessment and plan: Acute diverticulitis of the descending colon Mild hyponatremia: Resolved Presented with colicky abdominal pain, left lower quadrant, radiating to upper quadrant of abdomen Leukocytosis on presentation with WBC 7.8.6. CT abdomen showed wall thickening of distal descending colon. IV fluids AntiemeticsZofran Rocephin and Flagyl General Surgery consulted Outpatient colonoscopy in 4 to 6 weeks DVT prophylaxis: SCD PHYSICAL EXAMINATION: GENERAL: The patient is A&O x3, NAD HEENT: EOMI, Sclerae anicteric, Moist Mucous membranes Neck: Supple, Non tender, No JVD PULMONARY: Equal breath souds B/L, No wheezing, No crackles. CARDIOVASCULAR: S1, S2 present. No murmurs, rubs, or gallops. ABDOMEN: Soft, LLQ tender, nondistended, normoactive bowel sounds. No guarding or rebound tenderness. MUSCULOSKELETAL: No edema, No cyanosis. No clubbing. Normal ROM. Intact peripheral pulses. EXTREMITIES: No cyanosis, clubbing, or pedal edema. NEUROLOGICAL: CN 2-12 grossly intact. No FND Skin: No Rash REVIEW OF SYSTEMS: CONSTITUTIONAL: No fever or chills. CARDIOVASCULAR: No chest pain, palpitations or syncope. PULMONARY: No shortness of breath, no cough, sore throat. GASTROINTESTINAL: Complaint of nausea or abdominal pain. : No Dysuria, urgency, frequency. Extremities: No edema. NEUROLOGICAL: No headaches, no weakness, or numbness Dictation was produced using [employer] dictation software. please excuse any grammatical, word or spelling errors. Objective - Vital Signs Vital signs: Vital Signs Temp 97.7 F 05/16/24 07:30 Pulse 63 05/16/24 07:30 Resp 16 05/16/24 07:30 BP 161/84 05/16/24 07:30 Pulse Ox 98 05/16/24 07:30 FiO2 Intake & Output 05/15/24 05/16/24 05/16/24 18:59 06:59 18:59 Other: # Voids 3 2 - Labs CBC & Chem 7: 05/16/24 05:12 05/16/24 05:12 Labs: Abnormal Lab Results - Last 24 Hours (Table) 05/16/24 05/16/24 Range/Units 05:12 05:12 MPV 9.2 L (9.5-12.2) FL BUN <3.5 L (9.0-27.0) mg/dL BUN/Creatinine Ratio <5.83 L (12.00-20.00) Ratio
[2024-05-17 02:26] VITALS: PULSE 63
[2024-05-17 09:28] VITALS: BP 133/74; TEMP 97.5
--- NOTE | 2024-05-17 13:58 | P.DS ---
Providers Date of admission: 05/14/24 06:10 Attending physician: Ric Montalvo Consults: 05/14/24 06:09 Consult Physician Routine Consulting Provider: Donte Skaggs Consult Reason/Comments: tivitisy Do you want consulting provider notified?: Yes Primary care physician: Pema Jones MD I have performed a history and physical examination and medical decision making of this patient, discussed the same with the the resident, and agree with the assessment and plan as written. I performed brief physical exam. Hospital Course: Discharge diagnoses; # Acute diverticulitis of the descending colon Originally presented with colicky abdominal pain, left lower quadrant, radiating to the upper quadrant of the abdomen Leukocytes on presentation were 17.6 CT abdomen showed wall thickening of the distal descending colon Patient placed on IV fluids Antiemetics -Zofran Rocephin and Flagyl on board General Surgery consulted Outpatient colonoscopy in 4-6 weeks # Mild hyponatremia - resolved On presentation patient sodium is 132 On 05/16 patient sodium 139 Hospital course; 68-year-old female with a history of , hysterectomy, appendectomy, cholecystectomy who came in for abdominal pain. Patient was being evaluated by PCP for same complaint 1 week ago and on imaging was determined that she had diverticulitis. She reports pain is colicky and average intensity of 7 out of 10 in the right and left lower quadrants and radiates to the upper quadrant of the abdomen. However yesterday pain worsened to 11 out of 10 with associated diarrhea and nausea she denies hematochezia, hematemesis, constipation, jaundice, weight loss, fever, chills, chest pain, new onset cough, shortness of breath, dysuria, or hematuria. Wall thickening of distal descending colon negative for perforation or abscess. WBC 17.6 sodium 132 BUN 8 creatinine 0.54 glucose 100 amylase 58 lipase 112. Vitals on admission when unremarkable except for tachycardia at 110 05/15 Patient seen and examined at bedside. Patient reports she feels bloated and her pain is only mildly controlled with medication she notes an intensity of 6-7 out of 10. She had bowel movements that were loose or with soft stool. WBC 6.57 hemoglobin 12.6 platelet 252 sodium 142 potassium 4.1 BUN less than 3.5 creatinine 0.5 calcium 8.5 total protein 5.2 albumin 3.6 05/16/2024--patient was seen and examined today. Afebrile. Complained of nausea and abdominal pain earlier today, which is now improving. Currently on full liquid diet. Remains on Rocephin and Flagyl. 05/17 -patient was seen at bedside today. States she is feeling better today, has no nausea and minimal abdominal pain, only to palpation. Patient was able to tolerate eating oatmeal this morning without any issues. Patient has been cleared for discharge from a surgery perspective, follow-up in 4 to 6 weeks with colonoscopy. From medical perspective, considering the patient is feeling well today with no nausea, no vomiting, abdominal pain only to palpation we are prepared to discharge the patient on oral antibiotics. Patient and her discussed with us concern about recurring episodes of diverticulitis and how to avoid them, we discussed maintaining a diet higher in fiber to prevent the aggravation of them. All questions and concerns were answered appropriately. PHYSICAL EXAMINATION: GENERAL: The patient is alert and oriented x3, not in any acute distress. Well developed, well nourished. HEENT: Pupils are round and equally reacting to light. EOMI. No scleral icterus. No conjunctival pallor. Normocephalic, atraumatic. No pharyngeal erythema. No thyromegaly. CARDIOVASCULAR: S1 and S2 present. No murmurs, rubs, or gallops. PULMONARY: Chest is clear to auscultation, no wheezing or crackles. ABDOMEN: Soft, nontender, nondistended, normoactive bowel sounds. No palpable organomegaly. MUSCULOSKELETAL: No joint swelling or deformity. EXTREMITIES: No cyanosis, clubbing, or pedal edema. NEUROLOGICAL: Gross neurological examination did not reveal any focal deficits. SKIN: No rashes. Dictation was produced using [employer] dictation software. please excuse any grammatical, word or spelling errors. Patient Condition at Discharge: Fair Plan - Discharge Summary Discharge Rx Participant: No New Discharge Prescriptions: New cefUROXime axetiL [Ceftin] 500 mg PO BID 5 Days #10 tab metroNIDAZOLE [Flagyl] 500 mg PO TID #15 tab Continue Albuterol Inhaler [Ventolin Hfa Inhaler] 1 - 2 puff INHALATION RT-Q6H PRN PRN Reason: Dyspnea Omeprazole [PriLOSEC] 20 mg PO AC-LUNCH Fluticasone/Umeclidin/Vilanter [Trelegy Ellipta 200-62.5-25] 1 puff INHALATION RT-DAILY Dicyclomine [Bentyl] 20 mg PO QID PRN PRN Reason: IBS Estradiol Cream [Estrace Cream 0.01%] 1 gm VAGINAL WEEKLY Discontinued Amoxic-Pot Clav 500-125 mg [Augmentin 500-125 mg] 1 tab PO Q12HR Discharge Medication List Albuterol Inhaler [Ventolin Hfa Inhaler] 1 - 2 puff INHALATION RT-Q6H PRN 05/21/19 [History] Dicyclomine [Bentyl] 20 mg PO QID PRN 05/14/24 [History] Estradiol Cream [Estrace Cream 0.01%] 1 gm VAGINAL WEEKLY 05/14/24 [History] Fluticasone/Umeclidin/Vilanter [Trelegy Ellipta 200-62.5-25] 1 puff INHALATION RT-DAILY 05/14/24 [History] Omeprazole [PriLOSEC] 20 mg PO AC-LUNCH 05/14/24 [History] cefUROXime axetiL [Ceftin] 500 mg PO BID 5 Days #10 tab 05/17/24 [Rx] metroNIDAZOLE [Flagyl] 500 mg PO TID #15 tab 05/17/24 [Rx] Follow up Appointment(s)/Referral(s): Pema Salguero DO [Primary Care Provider] - 1-2 days Donte Skaggs DO [Medical Doctor] - 1 Week Activity/Diet/Wound Care/Special Instructions: Advised to maintain a soft diet for ~1 week after discharge. For the future the patient was advised that foods higher in fiber will help to prevent future flare ups from occurring. Discharge Disposition: HOME SELF-CARE
--- NOTE | 2024-05-17 14:16 | P.PN ---
Progress Note - Text Progress Note Date: 05/17/24 Patient Seen and Examined. Pain is improving. Tolerated LFD Denies nausea and vomiting. WBC has normalized. AM labs pending General Exam Limitations: no limitations General appearance: alert, in no apparent distress Head exam: Present: atraumatic, normocephalic, normal inspection Eye exam: Present: normal appearance, PERRL, EOMI. Absent: scleral icterus, conjunctival injection, periorbital swelling ENT exam: Present: normal exam, mucous membranes moist Neck exam: Present: normal inspection. Absent: tenderness, meningismus, lymphadenopathy Respiratory exam: Present: normal lung sounds bilaterally. Absent: respiratory distress, wheezes, rales, rhonchi, stridor Cardiovascular Exam: Present: regular rate, normal rhythm, normal heart sounds. Absent: systolic murmur, diastolic murmur, rubs, gallop, clicks GI/Abdominal exam: Present: soft, normal bowel sounds. Absent: distended, tenderness, guarding, rebound, rigid Extremities exam: Present: normal inspection, full ROM, normal capillary refill. Absent: tenderness, pedal edema, joint swelling, calf tenderness Back exam: Present: normal inspection Neurological exam: Present: alert, oriented X3, CN II-XII intact Psychiatric exam: Present: normal affect, normal mood Skin exam: Present: warm, dry, intact, normal color. Absent: rash 68 year old female with Diverticulitis -Ok for discharge from surgery standpoint -Will need outpatient colonoscopy in 4-6 weeks [facility] [phone]
[2024-05-21] MEDS ORDERED: ESTRADIOL 0.1 MG/GM VAGINAL CREAM 42.5 GM TUBE VAGINAL SCH (09:00)
== END 2024-05-17 14:38 | disposition home or self-care (01) | DRG 392 ==
LOC: EC 01:35 → 4SSUR 06:10
PROVIDERS: ADMIT Hospitalist; ATTEND Hospitalist
DX: K57.32 Diverticulitis of large intestine without perforation or abscess without bleeding (principal); E87.1 Hypo-osmolality and hyponatremia; J44.9 Chronic obstructive pulmonary disease, unspecified; M81.0 Age-related osteoporosis without current pathological fracture; Z87.891 Personal history of nicotine dependence; Z79.899 Other long term (current) drug therapy; Z85.118 Personal history of other malignant neoplasm of bronchus and lung; Z90.2 Acquired absence of lung [part of]
CPT/HCPCS: 36415; 74177; 80048; 80053; 82150; 83605; 83690; 83735; 84100; 85025; 85027; 85610; 85730; 96361; 96365; 96366; 96375; 99285

== ENCOUNTER 2024-06-21 09:50 | Day surgery (SDC) | payer MEDICARE ==
[~2024-06-21 09:50] MED LIST changes: -LACTATED RINGERS 1,000 ML IV SCH
[2024-06-21] MEDS: IV FLUID CONTINUATION 1,000 ML IV ONE (10:21)
[2024-06-21 10:25] VITALS: TEMP 97.8
[2024-06-21] MEDS: LACTATED RINGERS 1,000 ML IV SCH (10:29)
[2024-06-21] MEDS ORDERED: PROPOFOL 10 MG/ML 20 ML VIAL IV ONE (11:12)
--- NOTE | 2024-06-21 12:10 | P.PCN ---
Date of Procedure: 06/21/24 Preoperative Diagnosis: History of diverticulitis Postoperative Diagnosis: Diverticulosis Procedure(s) Performed: Colonoscopy Anesthesia: MAC Surgeon: Luzmaria Yusuf Pathology: none sent Condition: stable Disposition: same day Indications for Procedure: 68-year-old female with recent episode of diverticulitis requiring hospitalization. Plan is for colonoscopy for further evaluation as this is her second episode of diverticulitis within a year. Risks, benefits and alternatives provided. Operative Findings: Significant amount of diverticulosis and mild stricturing of the sigmoid colon Description of Procedure: The patient was brought to the endoscopy suite and placed in left lateral decubitus position and adequate sedation was achieved using conscious sedation. A digital rectal exam was performed and mild internal hemorrhoids were palpated. An endoscope was then placed in the rectum and advanced to the cecum as identified by landmarks including the appendiceal orifice and the ileocecal valve. The prep was good. The colonoscope was then slowly withdrawn, examining for any mucosal abnormalities. The cecum, ascending, transverse, descending and sigmoid colon were visualized adequately. No obvious inflammatory lesions were found. Mild to moderate diverticulosis noted throughout the colon. No obvious polyps were noted. The sigmoid colon was noted to be slightly strictured and difficult to traverse. Retroflexion was performed the rectum and mild internal hemorrhoids were visible. Excess air was removed. The colonoscope withdrawn and procedure terminated. The patient was then transferred to recovery unit in stable condition. Repeat colonoscopy should be performed in 5 years. There are discussion in the outpatient for possible surgical intervention.
[2024-06-21 12:46] VITALS: BP 197/83; PULSE 60; RESP 20
== END 2024-06-21 12:59 | disposition home or self-care (01) ==
LOC: ORWHC2ENDO 09:50
PROVIDERS: ATTEND Surgery
CPT/HCPCS: 45378

== ENCOUNTER 2024-08-10 09:43 | Inpatient (IN) | payer MEDICARE ==
[~2024-08-10 09:43] MED LIST changes: -LIDOCAINE 1% (10MG/ML) FOR IV START INTRADERMA PRN; +metroNIDAZOLE-NS PMX 500 MG in SALINE 1 100ML.BAG IVPB PRN
[2024-08-10] MEDS: DEXAMETHASONE SOD PHOSPHATE 4 MG/ML 1 ML VIAL IV ONE (11:02)
[2024-08-10] MEDS: FAMOTIDINE 20 MG/2 ML VIAL IV STA (11:03)
[2024-08-10] MEDS: ONDANSETRON 4 MG/2 ML VIAL IVP ONE (11:03)
[2024-08-10] MEDS: IV FLUID CONTINUATION 1,000 ML IV ONE (11:07)
[2024-08-10] MEDS: MIDAZOLAM 2 MG/2 ML VIAL IV ONE (11:13)
--- NOTE | 2024-08-10 11:34 | P.ANPRN ---
Procedure Note - Anesthesia - Nerve Block Performed Bilateral Erector Spinae Single Time Out Performed: Yes Date of Procedure: 08/10/24 Procedure Start Time: 11:12 Procedure Stop Time: 11:17 Location of Patient: PreOp Indication: Acute Post-Operative Pain, Analgesia, Requested by Surgeon Sedation Type: Sedate with meaningful contact maintained Preparation: Sterile Prep Position: Prone Catheter: None Needle Types: Pajunk Needle Gauge: 21 Ultrasound used to visualize needle placement: Yes Ultrasound used to observe medication spread: Yes Injectate: 0.5% Ropivacaine (see comment for volume) (Ropiv 20ml+Decadron 4mg & Needle tip@P25---Rwoo side.) Blood Aspirated: No Pain Paresthesia on Injection Noted: No Image Stored and Saved: Yes Events: Uneventful and Well Tolerated
[2024-08-10] MEDS: HEPARIN SODIUM,PORCINE 5,000 UNIT/ML 1 ML VIAL SQ STA (11:37)
[2024-08-10] MEDS ORDERED: NEOSTIGMINE 1 MG/ML 10 ML VIAL ONE (12:11)
[2024-08-10] MEDS ORDERED: GLYCOPYRROLATE 0.2 MG/ML 2 ML VIAL ONE (12:11)
[2024-08-10] MEDS ORDERED: ROPIVACAINE 5 MG/ML 30 ML VIAL ONE (12:11)
[2024-08-10] MEDS ORDERED: LIDOCAINE 1% INJ 10MG/ML (20 ML MDV) ONE (12:11)
[2024-08-10] MEDS ORDERED: PHENYLEPHRINE-0.9% NACL SYG 1,000 MCG/10 ML SYRINGE ONE (12:11)
[2024-08-10] MEDS ORDERED: ROCURONIUM 10 MG/ML (5 ML VIAL) IV ONE (12:11)
[2024-08-10] MEDS ORDERED: HYDROmorphone (PF) 1 MG/ML ONE (12:11)
[2024-08-10] MEDS ORDERED: SUCCINYLCHOLINE CHLORIDE 200 MG/10 ML VIAL IV ONE (12:11)
[2024-08-10] MEDS ORDERED: DEXAMETHASONE SOD PHOSPHATE 4 MG/ML 1 ML VIAL ONE (12:11)
[2024-08-10] MEDS ORDERED: PROPOFOL 10 MG/ML 20 ML VIAL IV ONE (12:11)
[2024-08-10] MEDS ORDERED: fentaNYL (PF) 50 MCG/ML 2 ML AMP ONE (12:11)
[2024-08-10] MEDS ORDERED: MIDAZOLAM 2 MG/2 ML VIAL ONE (12:11)
[2024-08-10] MEDS: LACTATED RINGERS 1,000 ML IV ONE ×2 (13:06→16:42)
[2024-08-10] MEDS: HYDROmorphone 0.5 MG/0.5 ML SYRINGE IVP PRN (15:33)
[2024-08-10] MEDS: LACTATED RINGERS 1,000 ML IV SCH ×2 (18:25)
[2024-08-10] MEDS: AMPICILLIN-SULBACTAM 3 GM in SODIUM CHLORIDE 0.9% 100 ML IVPB SCH (18:32)
--- NOTE | 2024-08-10 20:52 | P.OP ---
Date of Procedure: 08/10/24 Preoperative Diagnosis: Recurrent Diverticulitis Postoperative Diagnosis: Recurrent Diverticulitis Procedure(s) Performed: 1. Robotic Sigmoid Colectomy 2. Flexible Sigmoidoscopy Anesthesia: CHEKO Surgeon: Donte Skaggs Pathology: other (Sigmoid Colon) Condition: stable Disposition: PACU Indications for Procedure: This is a 68 year old female with multiple episodes of recurrent diverticulitis. She has required hospitalization multiple times. The risks, benefits, and alternatives of Robotic Sigmoid Colectomy were explained to the patient in detail and she was in agreement with procedure. Description of Procedure: The patient is placed on the operating room table in low lithotomy position. After anesthesia was given the patient was prepped and draped in usual sterile fashion. A kim catheter was placed. A timeout was performed prior to beginning the procedure. An #11 blade was used to make an incision at palmers point and a 5 mm optiview was used to gain access to the abdomen. The abdomen was iinsufflated. Three #8 mm ports and one #12 mm ports were then put in standard position for robotic sigmoid colectomy. The patient was positioned and the robot was docked. Dissection of the KRISTIAN and IMV were performed using a medial to lateral technique. The peritoneum to the right of the KRISTIAN and inferior to the right iliac artery were opened to start the dissection. The dissection was continued working towards and over the KRISTIAN toward the left upper quadrant. The inferior mesenteric pedicle was dissected from both medial and lateral sides. The left ureter and left gonadal vessels are identified in the resulting window and preserved. There lateral attachements distal and proximal to the vessels all the was up toward the splenic flexure were freed. A robotic stapler was used to divide the colon at the retosigmoid juntion. The mesentery of the colon was then taken down using a vessel sealer toward the splenic flexure and to a point there were no more visible diverticula. The proximal descending colon was then divided using another load of a robotic stapler. At the point, the sigmoid colon speciment was free. At the point the proximal descending colon was brought out through the port site at the palmers point location and the female end of the EEA stapler was secured in a colotomy made with bovie. It was secured in placed with 2-0 Silk Suture and introduced back into the abdominal cavity. At this point my insurance administrative assistant brought the EEA in through the rectum and proximal colon anvil was attached the needle from EEA introduced via the rectal stump. The EEA was then fired creating a new colorectal anastomosis. There were two good donuts. A leak test was performed via flexible endoscopy and there was no leak appreciated. The colon specimen was then removed the palmers point point incision. The fascia of this incision was closed with interrupted #0 Vicryl Sutures. Jeronimo were used to approximate the skin. This concluded the procedure and the patient was sent to the PACU in stable condition.
[2024-08-10] MEDS: HYDROcodone/APAP 10-325MG 1 EACH TAB PO PRN (21:32)
[2024-08-10] MEDS: HYDROmorphone 1 MG/ML 1 ML SYRINGE IVP PRN (23:48)
[2024-08-11] MEDS: ONDANSETRON 4 MG/2 ML VIAL IVP PRN (06:57)
[2024-08-11 08:32] LABS: Basophils # (A) 0.01 X 10*3/uL (0.00-0.10); Basophils % (A) 0.1 %; Eosinophils # (A) 0 X 10*3/uL (0.04-0.35); Eosinophils % (A) 0 %; HGB 11.9 g/dL (12.0-17.0); Lymphocytes # (A) 0.57 X 10*3/uL (0.90-5.00); Lymphocytes % (A) 5.1 %; MCH 30.4 pg (27.0-32.0); MCV 89.5 FL (80.0-97.0); Mean Platelet Volume 9.4 FL (9.5-12.2); Monocytes # (A) 0.34 X 10*3/uL (0.20-1.00); Monocytes % (A) 3.1 %; NRBC Per 100 WBC 0 X 10*3/uL (0.00-0.01); Neutrophils # (A) 10.17 X 10*3/uL (1.80-7.70); Neutrophils % (A) 91.3 %; Platelet Count 257 X 10*3/uL (140-440); RBC 3.91 X 10*6/uL (4.10-5.60); RDW 13.2 % (11.5-14.5); WBC 11.13 X 10*3/uL (4.50-10.00)
[2024-08-11 09:00] LABS: Blood Urea Nitrogen 11.7 mg/dL (9.0-27.0); Calcium 8.7 mg/dL (8.7-10.3); Carbon Dioxide 19.8 mmol/L (21.6-31.8); Chloride 104 mmol/L (96-109); Glucose 124 mg/dL (70-110); Potassium 4.4 mmol/L (3.5-5.5); Sodium 138 mmol/L (135-145)
[2024-08-11] MEDS ORDERED: NON FORMULARY DRUG (Albuterol Inhaler 90 MCG Puff) INHALATION PRN (10:16)
[2024-08-11] MEDS ORDERED: IPRATROPIUM-ALBUTEROL 3 ML NEB INHALATION PRN (10:17)
[2024-08-11] MEDS: PANTOPRAZOLE 40 MG/10 ML VIAL IVP SCH (11:05)
--- NOTE | 2024-08-11 11:55 | P.PN ---
Subjective Progress Note Date: 08/11/24 SURGICAL PROGRESS NOTE CHIEF COMPLAINT: Recurrent diverticulitis HISTORY OF PRESENT ILLNESS: Patient is postop day #1 status post robotic sigmoid colectomy. Patient does complain of abdominal pain. Pain controlled with pain medication. She did have nausea earlier. She did sit up at bedside chair ear lier this morning. Denies any vomiting. Afebrile. WBC 11.13 Hgb 11.9 platelets 257 PHYSICAL EXAM: VITAL SIGNS: Reviewed. GENERAL: Well-developed in no acute distress. HEENT: No sclera icterus. Extraocular movements grossly intact. Moist buccal mucosa. Head is atraumatic, normocephalic. ABDOMEN: Soft. Nondistended. Patient has minimal blood oozing from the incision site at midline. Otherwise, dressing is clean dry and intact NEUROLOGIC: Alert and oriented. Cranial nerves II through XII grossly intact. ASSESSMENT: 1. Recurrent diverticulitis status post robotic sigmoid colectomy PLAN: -Continue pain management -Incentive spirometer ordered -Discontinue Mayes catheter -Encourage patient to ambulate -Continue IV fluids -Keep patient n.p.o. -DVT prophylaxis SCDs and GI prophylaxis Protonix Physician Waterworks Chief Engineer note has been reviewed by physician. Signing provider agrees with the documented findings, assessment, and plan of care. Objective - Vital Signs Vital signs: Vital Signs Temp 98.0 F 08/11/24 07:28 Pulse 69 08/11/24 08:15 Resp 17 08/11/24 08:15 BP 147/61 08/11/24 07:28 Pulse Ox 94 L 08/11/24 09:39 FiO2 Intake & Output 08/10/24 08/11/24 08/11/24 18:59 06:59 18:59 Intake Total 2350 1600 Output Total 185 750 650 Balance 2165 850 -650 Weight 58.8 kg Intake: IV 2350 Intake, IV Titration 1600 Amount Ampicillin-Sulbactam 3 gm 100 In Sodium Chloride 0.9% 100 ml @ 200 mls/hr IVPB Q8H [facility] Rx#:[id number] Lactated Ringers 1,000 ml 1500 @ 125 mls/hr IV .Q8H [facility] Rx#:[id number] Output: Urine 160 750 650 Uretheral (Mayes) 350 Estimated Blood Loss 25 Other: Voiding Method Indwelling Catheter Indwelling Catheter - Labs CBC & Chem 7: 08/11/24 02:46 08/11/24 02:46 Labs: Abnormal Lab Results - Last 24 Hours (Table) 08/11/24 08/11/24 Range/Units 02:46 02:46 WBC 11.13 H (4.50-10.00) X 10*3/uL RBC 3.91 L (4.10-5.60) X 10*6/uL Hgb 11.9 L (12.0-17.0) g/dL Hct 35.0 L (37.2-50.0) % MPV 9.4 L (9.5-12.2) FL Neutrophils # 10.17 H (1.80-7.70) X 10*3/uL Lymphocytes # 0.57 L (0.90-5.00) X 10*3/uL Eosinophils # 0 L (0.04-0.35) X 10*3/uL Carbon Dioxide 19.8 L (21.6-31.8) mmol/L Anion Gap 14.20 H (4.00-12.00) mmol/L Glucose 124 H (70-110) mg/dL Assessment and Plan Assessment: w-YEAR-OLD FEMALE STATUS POST SIGMOID COLECTOMY WITH PRIMARY ANASTOMOSIS SECONDA RY TO DIVERTICULITIS cONTINUE NOTHING BY MOUTH AWAIT FOR BOWEL FUNCTION cONTINUE iv ANTIBIOTICS cONTINUE AMBULATION AND INCENTIVE SPIROMETRY USE pAIN CONTROL Time with Patient: Less than 30
--- NOTE | 2024-08-11 15:31 | P.CONS ---
History of Present Illness - Reason for Consult Consult date: 08/11/24 Medical management, status post sigmoid colectomy with flexible sigmoidosco - History of Present Illness This is a pleasant 68-year-old female who was recently admitted under general surgery services for recurrent diverticulitis. Patient has had multiple hospitalizations regarding this and is status post robotic sigmoid colectomy with flexible sigmoidoscopy and biopsies obtained. Patient follows with Dr. Yoon in the outpatient setting with a past medical history of lung cancer in 2022, post right middle lobe surgery, COPD, musculoskeletal disorder, osteoarthritis, former smoker. WBC mildly elevated at 11.13, likely reactive with a hemoglobin stable at 11.9, platelets 257, sodium 138, potassium 4.4, BUN 11.7, creatinine 0.6. Patient is currently n.p.o. per surgery and will be advanced only per surgery. REVIEW OF SYSTEMS: CONSTITUTIONAL: No fever, no malaise, no fatigue. HEENT: No recent visual problems or hearing problems. Denied any sore throat. CARDIOVASCULAR: No chest pain, orthopnea, PND, no palpitations, no syncope. PULMONARY: No shortness of breath, no cough, no hemoptysis. GASTROINTESTINAL: No diarrhea, no nausea, no vomiting, reports of abdominal pain and tenderness. NEUROLOGICAL: No headaches, no weakness, no numbness. HEMATOLOGICAL: Denies any bleeding or petechiae. GENITOURINARY: Denies any burning micturition, frequency, or urgency. MUSCULOSKELETAL/RHEUMATOLOGICAL: Denies any joint pain, swelling, or any muscle pain. ENDOCRINE: Denies any polyuria or polydipsia. The rest of the 14-point review of systems is negative. PHYSICAL EXAMINATION: GENERAL: The patient is alert and oriented x3, not in any acute distress. Well developed, elderly appearing, thin built HEENT: Pupils are round and equally reacting to light. EOMI. No scleral icterus. No conjunctival pallor. Normocephalic, atraumatic. No pharyngeal erythema. No thyromegaly. CARDIOVASCULAR: S1 and S2 present. Muffled PULMONARY: Diminished breath sounds bilaterally otherwise chest is clear to auscultation, no wheezing or crackles. ABDOMEN: Soft, tender, nondistended, hypoactive bowel sounds. No palpable organomegaly. Surgical site is dry and intact MUSCULOSKELETAL: No joint swelling or deformity. EXTREMITIES: No cyanosis, clubbing, or pedal edema. NEUROLOGICAL: Gross neurological examination did not reveal any focal deficits. Diffusely weak SKIN: No rashes. Assessment: Recurrent diverticulitis, status post robotic assisted sigmoid colectomy with sigmoidoscopy and biopsies Mild leukocytosis, likely reactive Recurrent diverticulitis with frequent hospitalizations History of COPD, not in exacerbation History of lung cancer with surgery in 2022 Osteoarthritis history Former smoker Plan: Patient admitted under surgery services status post sigmoid colectomy with recurrent diverticulitis. Patient is currently n.p.o. and diet will be advanced per surgery recommendations only Home medications reviewed and resumed as appropriate. Continue with as needed inhalers and patient does use Trelegy, will add DuoNebs 3 times daily as needed Wean FiO2 as tolerated Recommend incentive spirometer at least 10 times every hour while awake. Patient reports she has at least 3 of them at home and her will bring 1 in. Encouraged coughing and deep breathing while holding abdominal site until brings incentive spirometer back in. Patient does not want another one from the hospital as she is charged for this unnecessarily. Follow-up on labs and replace electrolytes per protocol We will continue to follow with general surgery during hospitalization. Thank you kindly for this consultation. The impression and plan of care has been dictated by Rosa Elena Wade, Nurse Practitioner as directed. Dr. Ramses MD I have performed a history and examination and MDM of this patient, discussed the same with the dictator, and agree with the dictator's assessment and plan as written ,documented as a scribe. Based on total visit time, I have performed more than 50% of the visit. Past Medical History Past Medical History: Cancer, COPD, Musculoskeletal Disorder, Osteoarthritis (OA), Respiratory Disorder Additional Past Medical History / Comment(s): Right middle lobe lung cancer (Surgery only); varicose veins, osteoporosis, diverticulitis History of Any Multi-Drug Resistant Organisms: None Reported Past Surgical History: Appendectomy, Section, Cholecystectomy, Hysterectomy, Joint Replacement, Orthopedic Surgery, Tonsillectomy Additional Past Surgical History / Comment(s): Partial hysterectomy- bilateral salpingectomy(no oophorectomy), chely hip replacements, left knee surg, right shoulder surgery, colonoscopy X3. Right middle lobe of the lung removed 2022. Past Anesthesia/Blood Transfusion Reactions: Previous Problems w/ Anesthesia Additional Past Anesthesia/Blood Transfusion Reaction / Comm: States BP dropped with hip replacement Smoking Status: Former smoker - Past Family History Mother Family Medical History: Cancer Additional Family Medical History / Comment(s): Breast and lung cancer. Mother's twin sister had breast cancer. Medications and Allergies Home Medications Medication Instructions Recorded Confirmed Type Albuterol Inhaler [Ventolin Hfa 1 - 2 puff INHALATION RT-Q6H PRN 05/21/19 08/03/24 History Inhaler] Estradiol Cream [Estrace Cream 1 gm VAGINAL WEEKLY 05/14/24 08/03/24 History 0.01%] Fluticasone/Umeclidin/Vilanter 1 puff INHALATION RT-DAILY 05/14/24 08/03/24 History [Trelegy Ellipta 200-62.5-25] Omeprazole [PriLOSEC] 20 mg PO AC-LUNCH 05/14/24 08/03/24 History Allergies Allergy/AdvReac Type Severity Reaction Status Date / Time No Known Allergies Allergy Verified 08/03/24 11:11 Physical Exam Vitals: Vital Signs Temp Pulse Resp BP Pulse Ox 08/11/24 09:39 94 L 08/11/24 07:28 98.0 F 69 17 147/61 98 08/11/24 01:44 97.6 F 77 17 133/70 94 L 08/10/24 20:31 98.2 F 90 18 148/75 99 08/10/24 18:10 98.4 F 93 18 147/73 93 L 08/10/24 17:45 98 16 151/70 99 08/10/24 17:15 96 16 140/65 99 08/10/24 17:00 75 16 148/68 100 08/10/24 16:45 65 16 153/70 100 08/10/24 16:30 90 16 153/70 100 08/10/24 16:15 84 16 169/70 100 08/10/24 16:00 90 16 170/76 100 08/10/24 15:45 81 16 165/77 100 08/10/24 15:30 69 16 178/82 100 08/10/24 15:15 97.3 F L 63 16 160/74 100 08/10/24 11:35 97 16 165/76 97 08/10/24 10:28 97.6 F 92 16 132/81 98 Intake and Output 08/10/24 08/11/24 08/11/24 22:59 06:59 14:59 Intake Total 500 1600 Output Total 185 750 Balance 315 850 Intake: IV 500 Intake, IV Titration 1600 Amount Ampicillin-Sulbactam 3 gm 100 In Sodium Chloride 0.9% 100 ml @ 200 mls/hr IVPB Q8H [facility] Rx#:[id number] Lactated Ringers 1,000 ml 1500 @ 125 mls/hr IV .Q8H [facility] Rx#:[id number] Output: Urine 160 750 Estimated Blood Loss 25 Other: Voiding Method Indwelling Catheter Weight 58.8 kg Results CBC & Chem 7: 08/11/24 02:46 08/11/24 02:46 Labs: Abnormal Lab Results - Last 24 Hours (Table) 08/11/24 08/11/24 Range/Units 02:46 02:46 WBC 11.13 H (4.50-10.00) X 10*3/uL RBC 3.91 L (4.10-5.60) X 10*6/uL Hgb 11.9 L (12.0-17.0) g/dL Hct 35.0 L (37.2-50.0) % MPV 9.4 L (9.5-12.2) FL Neutrophils # 10.17 H (1.80-7.70) X 10*3/uL Lymphocytes # 0.57 L (0.90-5.00) X 10*3/uL Eosinophils # 0 L (0.04-0.35) X 10*3/uL Carbon Dioxide 19.8 L (21.6-31.8) mmol/L Anion Gap 14.20 H (4.00-12.00) mmol/L Glucose 124 H (70-110) mg/dL
[2024-08-11] MEDS: SYMBICORT 160-4.5 MCG INHALER INHALATION SCH (21:19)
[2024-08-12 09:03] LABS: Basophils # (A) 0.02 X 10*3/uL (0.00-0.10); Basophils % (A) 0.3 %; Eosinophils # (A) 0.03 X 10*3/uL (0.04-0.35); Eosinophils % (A) 0.4 %; HCT 31.1 % (37.2-50.0); HGB 10.5 g/dL (12.0-17.0); Lymphocytes # (A) 1.77 X 10*3/uL (0.90-5.00); Lymphocytes % (A) 23.1 %; MCH 31.4 pg (27.0-32.0); MCHC 33.8 g/dL (32.0-37.0); MCV 93.1 FL (80.0-97.0); Mean Platelet Volume 9.5 FL (9.5-12.2); Monocytes # (A) 0.63 X 10*3/uL (0.20-1.00); Monocytes % (A) 8.2 %; NRBC Per 100 WBC 0 X 10*3/uL (0.00-0.01); Neutrophils # (A) 5.17 X 10*3/uL (1.80-7.70); Neutrophils % (A) 67.6 %; Platelet Count 210 X 10*3/uL (140-440); RBC 3.34 X 10*6/uL (4.10-5.60); RDW 13.7 % (11.5-14.5); WBC 7.65 X 10*3/uL (4.50-10.00)
[2024-08-12] MEDS: IPRATROPIUM 0.5 MG/2.5 ML NEBU INHALATION SCH (09:09)
[2024-08-12 09:35] LABS: Blood Urea Nitrogen 10.6 mg/dL (9.0-27.0); Calcium 8.4 mg/dL (8.7-10.3); Carbon Dioxide 25.2 mmol/L (21.6-31.8); Chloride 106 mmol/L (96-109); Glucose 89 mg/dL (70-110); Potassium 4.1 mmol/L (3.5-5.5); Sodium 139 mmol/L (135-145)
[2024-08-12] MEDS: methocarbamoL 750 MG TAB PO SCH (14:54)
--- NOTE | 2024-08-12 15:03 | P.PN ---
Subjective Progress Note Date: 08/12/24 SURGICAL PROGRESS NOTE CHIEF COMPLAINT: Recurrent diverticulitis HISTORY OF PRESENT ILLNESS: Patient is postop day #2 status post Robotic sigmoid colectomy. Patient did have increased abdominal pain earlier this morning. Patient thinks that she went too long without pain medications. She denies any nausea or vomiting. She is having flatus. Denies any difficulty urinating. Afebrile. WBC is down from 11.13-7.65 Hgb 10.5 PHYSICAL EXAM: VITAL SIGNS: Reviewed. GENERAL: Well-developed in no acute distress. HEENT: No sclera icterus. Extraocular movements grossly intact. Moist buccal mucosa. Head is atraumatic, normocephalic. ABDOMEN: Soft. Nondistended. Abdominal dressing clean dry and intact. NEUROLOGIC: Alert and oriented. Cranial nerves II through XII grossly intact. ASSESSMENT: 1. Recurrent diverticulitis status post robotic sigmoid colectomy PLAN: -Advance diet to clear liquids -Plan to remove surgical dressing tomorrow -Toradol as needed and Robaxin scheduled ordered for pain management -Continue antibiotics -Encourage patient to use incentive spirometer -Encourage patient to ambulate -DVT prophylaxis subcu heparin added and GI prophylaxis Protonix Physician Transverse Abdominal Muscle Surgeon note has been reviewed by physician. Signing provider agrees with the documented findings, assessment, and plan of care. Attestation Patient seen and examined at bedside. Postoperative day #2 status post robotic sigmoid colectomy. She did have flatus today and diet is to be advanced to clear liquid diet. Pain regimen was changed secondary to patient's complaint of soreness. Toradol and Robaxin added. Continue with narcotics as needed. Continue to increase activity. Progressing slowly. Luzmaria Yusuf DO Objective - Vital Signs Vital signs: Vital Signs Temp 97.6 F 08/12/24 13:21 Pulse 69 08/12/24 13:21 Resp 18 08/12/24 13:21 BP 131/52 08/12/24 13:21 Pulse Ox 95 08/12/24 13:21 FiO2 Intake & Output 08/11/24 08/12/24 08/12/24 18:59 06:59 18:59 Output Total 1000 Balance -1000 Output: Urine 1000 Uretheral (Mayes) 350 Other: Voiding Method Indwelling Catheter Toilet # Voids 2 2 - Labs CBC & Chem 7: 08/12/24 05:59 08/12/24 05:59 Labs: Abnormal Lab Results - Last 24 Hours (Table) 08/12/24 08/12/24 Range/Units 05:59 05:59 RBC 3.34 L (4.10-5.60) X 10*6/uL Hgb 10.5 L (12.0-17.0) g/dL Hct 31.1 L (37.2-50.0) % Eosinophils # 0.03 L (0.04-0.35) X 10*3/uL Creatinine 0.5 L (0.6-1.5) mg/dL BUN/Creatinine Ratio 21.20 H (12.00-20.00) Ratio Calcium 8.4 L (8.7-10.3) mg/dL
[2024-08-12] MEDS: HEPARIN SODIUM,PORCINE 5,000 UNIT/ML 1 ML VIAL SQ SCH (20:01)
[2024-08-13] MEDS: KETOROLAC 15 MG/ML 1 ML VIAL IVP PRN (08:24)
[2024-08-13 08:38] LABS: HCT 33.1 % (37.2-50.0); HGB 10.9 g/dL (12.0-17.0); MCH 30.8 pg (27.0-32.0); MCHC 32.9 g/dL (32.0-37.0); MCV 93.5 FL (80.0-97.0); Mean Platelet Volume 9.6 FL (9.5-12.2); NRBC Per 100 WBC 0 X 10*3/uL (0.00-0.01); Platelet Count 203 X 10*3/uL (140-440); RBC 3.54 X 10*6/uL (4.10-5.60); RDW 13.3 % (11.5-14.5); WBC 6.42 X 10*3/uL (4.50-10.00)
--- NOTE | 2024-08-13 08:54 | P.PN ---
Subjective Progress Note Date: 08/12/24 - Reason for Consult Consult date: 08/11/24 Medical management, status post sigmoid colectomy with flexible sigmoidosco - History of Present Illness This is a pleasant 68-year-old female who was recently admitted under general surgery services for recurrent diverticulitis. Patient has had multiple hospitalizations regarding this and is status post robotic sigmoid colectomy with flexible sigmoidoscopy and biopsies obtained. Patient follows with Dr. Yoon in the outpatient setting with a past medical history of lung cancer in 2022, post right middle lobe surgery, COPD, musculoskeletal disorder, osteoarthritis, former smoker. WBC mildly elevated at 11.13, likely reactive with a hemoglobin stable at 11.9, platelets 257, sodium 138, potassium 4.4, BUN 11.7, creatinine 0.6. Patient is currently n.p.o. per surgery and will be advanced only per surgery. 08/12/2024 Patient is seen in follow-up today reporting she did not sleep well and also continues to have abdominal discomfort. Patient reports is passing gas but no bowel movement as of yet. Patient is voiding and denies any burning, pain, frequency. Patient has been up and walking and has been instructed to continue using incentive spirometer at least 10 times every hour while awake. Patient is afebrile and currently maintained on ice chips only per surgery. Advance diet only per surgery recommendations. Review of systems: Constitutional: No reports of fatigue, fever, or chills Cardiovascular: No reports of chest pain or palpitations Respiratory: No reports of shortness of breath or cough GI: No reports of nausea, vomiting, reports passing gas, no bowel movement as of yet, continues with significant abdominal pain : No reports of dysuria or retention Neurovascular: No reports of weakness or numbness All medications have been reviewed PHYSICAL EXAMINATION: GENERAL: The patient is alert and oriented x3, not in any acute distress. Well developed, elderly appearing, thin built HEENT: Pupils are round and equally reacting to light. EOMI. No scleral icterus. No conjunctival pallor. Normocephalic, atraumatic. No pharyngeal erythema. No thyromegaly. CARDIOVASCULAR: S1 and S2 present. Muffled PULMONARY: Diminished breath sounds bilaterally otherwise chest is clear to auscultation, no wheezing or crackles. ABDOMEN: Soft, tender, nondistended, hypoactive bowel sounds. No palpable organomegaly. Surgical site is dry and intact MUSCULOSKELETAL: No joint swelling or deformity. EXTREMITIES: No cyanosis, clubbing, or pedal edema. NEUROLOGICAL: Gross neurological examination did not reveal any focal deficits. Diffusely weak SKIN: No rashes. Assessment: Recurrent diverticulitis, status post robotic assisted sigmoid colectomy with sigmoidoscopy and biopsies Mild leukocytosis, likely reactive Recurrent diverticulitis with frequent hospitalizations History of COPD, not in exacerbation History of lung cancer with surgery in 2022 Osteoarthritis history Former smoker Plan: Patient admitted under surgery services status post sigmoid colectomy with recurrent diverticulitis. Patient is currently ice chips and tolerating thus far, diet will be advanced per surgery recommendations only Home medications reviewed and resumed as appropriate. Continue with as needed inhalers and patient does use Trelegy, will add DuoNebs 3 times daily as needed Patient has been using incentive spirometer and is currently maintaining oxygen saturations above 92% on room air Encourage frequent walking at least 2-3 times daily and also sitting up in the chair more often. Follow-up on labs and replace electrolytes per protocol We will continue to follow with general surgery during hospitalization. Thank you kindly for this consultation. The impression and plan of care has been dictated by Rosa Elena Wade, Nurse Practitioner as directed. Dr. Ramses MD I have performed a history and examination and MDM of this patient, discussed the same with the dictator, and agree with the dictator's assessment and plan as written ,documented as a scribe. Based on total visit time, I have performed more than 50% of the visit. Objective - Vital Signs Vital signs: Vital Signs Temp 98.0 F 08/13/24 07:54 Pulse 81 08/13/24 07:54 Resp 18 08/13/24 07:54 BP 171/82 08/13/24 07:54 Pulse Ox 96 08/13/24 07:54 FiO2 Intake & Output 08/12/24 08/13/24 08/13/24 18:59 06:59 18:59 Intake Total 1350 Balance 1350 Intake: Intake, IV Titration 1100 Amount Ampicillin-Sulbactam 3 gm 100 In Sodium Chloride 0.9% 100 ml @ 200 mls/hr IVPB Q8H [facility] Rx#:[id number] Lactated Ringers 1,000 ml 1000 @ 125 mls/hr IV .Q8H [facility] Rx#:[id number] Oral 250 Other: # Voids 5 - Labs CBC & Chem 7: 08/13/24 03:56 08/12/24 05:59 Labs: Abnormal Lab Results - Last 24 Hours (Table) 08/12/24 08/12/24 08/13/24 Range/Units 05:59 05:59 03:56 RBC 3.34 L 3.54 L (4.10-5.60) X 10*6/uL Hgb 10.5 L 10.9 L (12.0-17.0) g/dL Hct 31.1 L 33.1 L (37.2-50.0) % Eosinophils # 0.03 L (0.04-0.35) X 10*3/uL Creatinine 0.5 L (0.6-1.5) mg/dL BUN/Creatinine Ratio 21.20 H (12.00-20.00) Ratio Calcium 8.4 L (8.7-10.3) mg/dL
--- NOTE | 2024-08-13 14:04 | P.PN ---
Subjective Progress Note Date: 08/13/24 SURGICAL PROGRESS NOTE CHIEF COMPLAINT: Recurrent diverticulitis HISTORY OF PRESENT ILLNESS: Patient is postop day #3 status post Robotic sigmoid colectomy. Patient reports her pain is better controlled after the adjustment in pain medication yesterday. She is having flatus and did have a bowel moveme nt. She denies any nausea or vomiting. Afebrile. BP elevated. Afebrile. WBC 6.42 Hgb 10.9 platelets 203 PHYSICAL EXAM: VITAL SIGNS: Reviewed. GENERAL: Well-developed in no acute distress. HEENT: No sclera icterus. Extraocular movements grossly intact. Moist buccal mucosa. Head is atraumatic, normocephalic. ABDOMEN: Soft. Nondistended. Abdominal dressing clean dry and intact. NEUROLOGIC: Alert and oriented. Cranial nerves II through XII grossly intact. ASSESSMENT: 1. Recurrent diverticulitis status post robotic sigmoid colectomy PLAN: -Advance diet to full liquids -Discontinue IV fluids. This should help with elevated BP -Continue pain management -Continue antibiotics -Encourage patient to use incentive spirometer -Encourage patient to ambulate -DVT prophylaxis subcu heparin added and GI prophylaxis Protonix Physician Wire Rigger note has been reviewed by physician. Signing provider agrees with the documented findings, assessment, and plan of care. Attestation Patient seen and examined at bedside. Postoperative day #3, robotic sigmoid colectomy. Patient doing very well. Pain is well-controlled. Patient had multiple small bowel movements. Having flatus. Advance to full liquid diet. Continue to increase activity. Likely discharge in 24 to 48 hours. Luzmaria Yusuf, DO Objective - Vital Signs Vital signs: Vital Signs Temp 98.0 F 08/13/24 07:54 Pulse 81 08/13/24 07:54 Resp 18 08/13/24 07:54 BP 171/82 08/13/24 07:54 Pulse Ox 96 08/13/24 07:54 FiO2 Intake & Output 08/12/24 08/13/24 08/13/24 18:59 06:59 18:59 Intake Total 1350 Balance 1350 Intake: Intake, IV Titration 1100 Amount Ampicillin-Sulbactam 3 gm 100 In Sodium Chloride 0.9% 100 ml @ 200 mls/hr IVPB Q8H [facility] Rx#:[id number] Lactated Ringers 1,000 ml 1000 @ 125 mls/hr IV .Q8H [facility] Rx#:[id number] Oral 250 Other: # Voids 5 - Labs CBC & Chem 7: 08/13/24 03:56 08/12/24 05:59 Labs: Abnormal Lab Results - Last 24 Hours (Table) 08/13/24 Range/Units 03:56 RBC 3.54 L (4.10-5.60) X 10*6/uL Hgb 10.9 L (12.0-17.0) g/dL Hct 33.1 L (37.2-50.0) %
--- NOTE | 2024-08-14 07:43 | P.PN ---
Subjective Progress Note Date: 08/13/24 - Reason for Consult Consult date: 08/11/24 Medical management, status post sigmoid colectomy with flexible sigmoidosco - History of Present Illness This is a pleasant 68-year-old female who was recently admitted under general surgery services for recurrent diverticulitis. Patient has had multiple hospitalizations regarding this and is status post robotic sigmoid colectomy with flexible sigmoidoscopy and biopsies obtained. Patient follows with Dr. Yoon in the outpatient setting with a past medical history of lung cancer in 2022, post right middle lobe surgery, COPD, musculoskeletal disorder, osteoarthritis, former smoker. WBC mildly elevated at 11.13, likely reactive with a hemoglobin stable at 11.9, platelets 257, sodium 138, potassium 4.4, BUN 11.7, creatinine 0.6. Patient is currently n.p.o. per surgery and will be advanced only per surgery. 08/12/2024 Patient is seen in follow-up today reporting she did not sleep well and also continues to have abdominal discomfort. Patient reports is passing gas but no bowel movement as of yet. Patient is voiding and denies any burning, pain, frequency. Patient has been up and walking and has been instructed to continue using incentive spirometer at least 10 times every hour while awake. Patient is afebrile and currently maintained on ice chips only per surgery. Advance diet only per surgery recommendations. 08/13/2024 Patient is seen in follow-up today reports is having bowel movements and passing gas. Per general surgery diet is being advanced to full liquids and recommend discontinuing IV fluids. Blood pressures have been elevated may be secondary to IV fluids as well as continued pain. Patient reports significant abdominal discomfort although slightly improved from surgery. Patient has been instructed to increase activity as tolerated Review of systems: Constitutional: No reports of fatigue, fever, or chills Cardiovascular: No reports of chest pain or palpitations Respiratory: No reports of shortness of breath or cough GI: No reports of nausea, vomiting, reports passing gas, having bowel movement, continues with significant abdominal pain although slightly improved : No reports of dysuria or retention Neurovascular: No reports of weakness or numbness All medications have been reviewed PHYSICAL EXAMINATION: GENERAL: The patient is alert and oriented x3, not in any acute distress. Well developed, elderly appearing, thin built HEENT: Pupils are round and equally reacting to light. EOMI. No scleral icterus. No conjunctival pallor. Normocephalic, atraumatic. No pharyngeal erythema. No thyromegaly. CARDIOVASCULAR: S1 and S2 present. Muffled PULMONARY: Diminished breath sounds bilaterally otherwise chest is clear to auscultation, no wheezing or crackles. ABDOMEN: Soft, tender, nondistended, normoactive bowel sounds. No palpable organomegaly. Surgical site is dry and intact MUSCULOSKELETAL: No joint swelling or deformity. EXTREMITIES: No cyanosis, clubbing, or pedal edema. NEUROLOGICAL: Gross neurological examination did not reveal any focal deficits. Diffusely weak SKIN: No rashes. Assessment: Recurrent diverticulitis, status post robotic assisted sigmoid colectomy with sigmoidoscopy and biopsies Mild leukocytosis, likely reactive Recurrent diverticulitis with frequent hospitalizations History of COPD, not in exacerbation History of lung cancer with surgery in 2022 Osteoarthritis history Former smoker Plan: Patient admitted under surgery services status post sigmoid colectomy with recurrent diverticulitis. Patient is currently having bowel movements and passing gas and diet is being advanced to full liquids per surgery Home medications reviewed and resumed as appropriate. Continue with as needed inhalers and patient does use Trelegy, will add DuoNebs 3 times daily as needed Patient has been using incentive spirometer and is currently maintaining oxygen saturations above 92% on room air Encourage frequent walking at least 2-3 times daily and also sitting up in the chair more often. Discussing possible discharge in the next 24 to 48 hours. Patient is medically stable once cleared by general surgery We will continue to follow with general surgery during hospitalization. Thank you kindly for this consultation. The impression and plan of care has been dictated by Rosa Elena Wade, Nurse Practitioner as directed. Dr. Robert MD I have performed a history and examination and MDM of this patient, discussed the same with the dictator, and agree with the dictator's assessment and plan as written ,documented as a scribe. Based on total visit time, I have performed more than 50% of the visit. Objective - Vital Signs Vital signs: Vital Signs Temp 97.8 F 08/14/24 02:00 Pulse 72 08/14/24 02:00 Resp 16 08/14/24 02:00 BP 151/68 08/14/24 02:00 Pulse Ox 91 L 08/14/24 02:00 FiO2 Intake & Output 08/13/24 08/14/24 08/14/24 18:59 06:59 18:59 Intake Total 1100 Balance 1100 Intake: Intake, IV Titration 1100 Amount Ampicillin-Sulbactam 3 gm 100 In Sodium Chloride 0.9% 100 ml @ 200 mls/hr IVPB Q8H [facility] Rx#:[id number] Lactated Ringers 1,000 ml 1000 @ 125 mls/hr IV .Q8H [facility] Rx#:[id number] - Labs CBC & Chem 7: 08/13/24 03:56 08/12/24 05:59 Labs: Abnormal Lab Results - Last 24 Hours (Table) 08/13/24 Range/Units 03:56 RBC 3.54 L (4.10-5.60) X 10*6/uL Hgb 10.9 L (12.0-17.0) g/dL Hct 33.1 L (37.2-50.0) %
--- NOTE | 2024-08-14 13:35 | P.PN ---
Subjective Progress Note Date: 08/14/24 Patient seen and examined at bedside. Overall doing well but does have some anxiety about being discharged. Having flatus. States her last bowel movement was yesterday. Pain appears to be overall well-controlled. Objective - Vital Signs Vital signs: Vital Signs Temp 97.3 F L 08/14/24 07:02 Pulse 77 08/14/24 09:24 Resp 18 08/14/24 09:24 BP 150/75 08/14/24 07:02 Pulse Ox 95 08/14/24 07:02 FiO2 Intake & Output 08/13/24 08/14/24 08/14/24 18:59 06:59 18:59 Intake Total 1100 Balance 1100 Intake: Intake, IV Titration 1100 Amount Ampicillin-Sulbactam 3 gm 100 In Sodium Chloride 0.9% 100 ml @ 200 mls/hr IVPB Q8H [facility] Rx#:[id number] Lactated Ringers 1,000 ml 1000 @ 125 mls/hr IV .Q8H [facility] Rx#:[id number] Other: Voiding Method Toilet - Constitutional General appearance: Present: cooperative, no acute distress - Gastrointestinal Gastrointestinal Comment(s): Soft, nontender, incision sites are clean, dry and intact and healing well - Labs CBC & Chem 7: 08/13/24 03:56 08/12/24 05:59 Assessment and Plan Plan: Postop day #4, sigmoid colectomy. Patient appears to be doing well. Continuing to have bowel function. Patient feels comfortable with discharge tomorrow. Today we will advance to soft diet. Recommended increasing activity. Will discontinue IV pain medication. Anticipate discharge tomorrow.
--- NOTE | 2024-08-14 15:19 | P.PN ---
Subjective Progress Note Date: 08/14/24 This is a pleasant 68-year-old female who was recently admitted under general surgery services for recurrent diverticulitis. Patient has had multiple hospitalizations regarding this and is status post robotic sigmoid colectomy with flexible sigmoidoscopy and biopsies obtained. Patient follows with Dr. Yoon in the outpatient setting with a past medical history of lung cancer in 2022, post right middle lobe surgery, COPD, musculoskeletal disorder, osteoarthritis, former smoker. WBC mildly elevated at 11.13, likely reactive with a hemoglobin stable at 11.9, platelets 257, sodium 138, potassium 4.4, BUN 11.7, creatinine 0.6. Patient is currently n.p.o. per surgery and will be advanced only per surgery. 08/12/2024 Patient is seen in follow-up today reporting she did not sleep well and also co ntinues to have abdominal discomfort. Patient reports is passing gas but no bowel movement as of yet. Patient is voiding and denies any burning, pain, frequency. Patient has been up and walking and has been instructed to continue using incentive spirometer at least 10 times every hour while awake. Patient is afebrile and currently maintained on ice chips only per surgery. Advance diet only per surgery recommendations. 08/13/2024 Patient is seen in follow-up today reports is having bowel movements and passing gas. Per general surgery diet is being advanced to full liquids and recommend discontinuing IV fluids. Blood pressures have been elevated may be secondary to IV fluids as well as continued pain. Patient reports significant abdominal discomfort although slightly improved from surgery. Patient has been instructed to increase activity as tolerated 08/14/2024 Patient evaluated today in follow up. Diet advanced to soft foods. She is not having much abdominal pain. Having some anxiety about discharge as she has been receiving IV pain medications. Plan will be to monitor for one more night and discharge home tomorrow if she is tolerating increased diet and pain is well controlled. Blood pressure improving. Review of systems: Constitutional: No reports of fatigue, fever, or chills Cardiovascular: No reports of chest pain or palpitations Respiratory: No reports of shortness of breath or cough GI: No reports of nausea, vomiting, reports passing gas, having bowel movement, continues with significant abdominal pain although slightly improved : No reports of dysuria or retention Neurovascular: No reports of weakness or numbness All medications have been reviewed PHYSICAL EXAMINATION: GENERAL: The patient is alert and oriented x3, not in any acute distress. Well developed, elderly appearing, thin built HEENT: Pupils are round and equally reacting to light. EOMI. No scleral icterus. No conjunctival pallor. Normocephalic, atraumatic. No pharyngeal erythema. No thyromegaly. CARDIOVASCULAR: S1 and S2 present. Muffled PULMONARY: Diminished breath sounds bilaterally otherwise chest is clear to auscultation, no wheezing or crackles. ABDOMEN: Soft, tender, nondistended, normoactive bowel sounds. No palpable organomegaly. Surgical site is dry and intact MUSCULOSKELETAL: No joint swelling or deformity. EXTREMITIES: No cyanosis, clubbing, or pedal edema. NEUROLOGICAL: Gross neurological examination did not reveal any focal deficits. Diffusely weak SKIN: No rashes. Assessment: Recurrent diverticulitis, status post robotic assisted sigmoid colectomy with sigmoidoscopy and biopsies Mild leukocytosis, likely reactive Recurrent diverticulitis with frequent hospitalizations History of COPD, not in exacerbation History of lung cancer with surgery in 2022 Osteoarthritis history Former smoker Plan: Patient admitted under surgery services status post sigmoid colectomy with recurrent diverticulitis. Patient is currently having bowel movements and p assing gas and diet is being advanced to full liquids per surgery Home medications reviewed and resumed as appropriate. Continue with as needed inhalers and patient does use Trelegy, will add DuoNebs 3 times daily as needed Patient has been using incentive spirometer and is currently maintaining oxygen saturations above 92% on room air Encourage frequent walking at least 2-3 times daily and also sitting up in the chair more often. Discussing possible discharge in the next 24 to 48 hours. Patient is medically stable once cleared by general surgery We will continue to follow with general surgery during hospitalization. Thank you kindly for this consultation. The impression and plan of care has been dictated by Alta Sheridan, Nurse Practitioner as directed. Dr. Robert MD I have performed a history and examination and MDM of this patient, discussed the same with the dictator, and agree with the dictator's assessment and plan as written ,documented as a scribe. Based on total visit time, I have performed more than 50% of the visit. Objective - Vital Signs Vital signs: Vital Signs Temp 97.8 F 08/14/24 14:22 Pulse 69 08/14/24 14:22 Resp 17 08/14/24 14:22 BP 122/61 08/14/24 14:22 Pulse Ox 94 L 08/14/24 14:22 FiO2 Intake & Output 08/13/24 08/14/24 08/14/24 18:59 06:59 18:59 Intake Total 1100 Balance 1100 Intake: Intake, IV Titration 1100 Amount Ampicillin-Sulbactam 3 gm 100 In Sodium Chloride 0.9% 100 ml @ 200 mls/hr IVPB Q8H [facility] Rx#:[id number] Lactated Ringers 1,000 ml 1000 @ 125 mls/hr IV .Q8H [facility] Rx#:[id number] Other: Voiding Method Toilet - Labs CBC & Chem 7: 08/13/24 03:56 08/12/24 05:59 Assessment and Plan Time with Patient: Less than 30
[2024-08-15 08:55] VITALS: BP 145/82; PULSE 83; RESP 20; TEMP 97.9
--- NOTE | 2024-08-15 09:26 | P.DS ---
Providers Date of admission: 08/10/24 09:43 Attending physician: Donte Skaggs DO Consults: 08/10/24 15:22 Consult Physician Routine Consulting Provider: Ric Montalvo Reason/Comments: Medical Management Do you want consulting provider notified?: Yes Primary care physician: Pema Salguero [facility] Course: 68-year-old female presented for elective sigmoid colectomy secondary to recurrent diverticulitis. Postoperatively, patient did very well. Pain was well-controlled and diet was advanced throughout her admission. She was having bowel function. Pain regimen was adjusted and patient is currently surgically stable for discharge. All instructions were provided. To follow-up as outpatient. Assessment: Abdomen is soft, appropriate tenderness, incision sites are healing well Procedures: Robotic sigmoid colectomy Patient Condition at Discharge: Good Plan - Discharge Summary Discharge Rx Participant: Yes New Discharge Prescriptions: New HYDROcodone/APAP 10-325MG [[place] 10-325] 1 each PO Q6HR PRN #12 tab PRN Reason: Pain methocarbamoL [Robaxin-750] 750 mg PO TID #21 tab Sennosides/Docusate Sodium [Senna-S 8.6-50 mg Tablet] 1 each PO DAILY #21 tablet Ondansetron Odt [Zofran Odt] 4 mg PO Q8HR PRN #20 tab PRN Reason: Nausea Continue Albuterol Inhaler [Ventolin Hfa Inhaler] 1 - 2 puff INHALATION RT-Q6H PRN PRN Reason: Dyspnea Omeprazole [PriLOSEC] 20 mg PO AC-LUNCH Fluticasone/Umeclidin/Vilanter [Trelegy Ellipta 200-62.5-25] 1 puff INHALATION RT-DAILY Estradiol Cream [Estrace Cream 0.01%] 1 gm VAGINAL WEEKLY Discharge Medication List Albuterol Inhaler [Ventolin Hfa Inhaler] 1 - 2 puff INHALATION RT-Q6H PRN 05/21/19 [History] Estradiol Cream [Estrace Cream 0.01%] 1 gm VAGINAL WEEKLY 05/14/24 [History] Fluticasone/Umeclidin/Vilanter [Trelegy Ellipta 200-62.5-25] 1 puff INHALATION RT-DAILY 05/14/24 [History] Omeprazole [PriLOSEC] 20 mg PO AC-LUNCH 05/14/24 [History] HYDROcodone/APAP 10-325MG [[place] 10-325] 1 each PO Q6HR PRN #12 tab 08/15/24 [Rx] Ondansetron Odt [Zofran Odt] 4 mg PO Q8HR PRN #20 tab 08/15/24 [Rx] Sennosides/Docusate Sodium [Senna-S 8.6-50 mg Tablet] 1 each PO DAILY #21 tablet 08/15/24 [Rx] methocarbamoL [Robaxin-750] 750 mg PO TID #21 tab 08/15/24 [Rx] Follow up Appointment(s)/Referral(s): Donte Skaggs DO [Medical Doctor] - 08/24/24 Patient Instructions/Handouts: Colectomy Diet (DC), Laparoscopic Bowel Resection (DC) Activity/Diet/Wound Care/Special Instructions: Okay to shower. Take pain medication as needed. No lifting greater than 10 pounds Discharge Disposition: HOME SELF-CARE
[2024-08-15 10:50] LABS: Blood Urea Nitrogen 6.6 mg/dL (9.0-27.0); Glucose 94 mg/dL (70-110); Magnesium 1.7 mg/dL (1.5-2.4); Potassium 3.9 mmol/L (3.5-5.5); Sodium 141 mmol/L (135-145)
[2024-08-15 10:51] LABS: Calcium 8.5 mg/dL (8.7-10.3); Carbon Dioxide 25.6 mmol/L (21.6-31.8); Chloride 106 mmol/L (96-109)
== END 2024-08-15 13:27 | disposition home or self-care (01) | DRG 331 ==
LOC: 2ORMAIN 09:43 → 4SSUR 17:48
PROVIDERS: ADMIT Surgery; ATTEND Surgery
PROC: 0DBN8ZX Excision of Sigmoid Colon, Via Natural or Artificial Opening Endoscopic, Diagnostic (ICD-10-PCS; 2024-08-10)
PROC: 8E0W4CZ Robotic Assisted Procedure of Trunk Region, Percutaneous Endoscopic Approach (ICD-10-PCS; 2024-08-10)
PROC: 3E0T3BZ Introduction of Anesthetic Agent into Peripheral Nerves and Plexi, Percutaneous Approach (ICD-10-PCS; 2024-08-10)
PROC: 3E0T33Z Introduction of Anti-inflammatory into Peripheral Nerves and Plexi, Percutaneous Approach (ICD-10-PCS; 2024-08-10)
PROC: 0DTN4ZZ Resection of Sigmoid Colon, Percutaneous Endoscopic Approach (ICD-10-PCS; principal; 2024-08-10 11:30)
DX: K57.32 Diverticulitis of large intestine without perforation or abscess without bleeding (principal); J44.9 Chronic obstructive pulmonary disease, unspecified; D72.829 Elevated white blood cell count, unspecified; M19.90 Unspecified osteoarthritis, unspecified site; F41.9 Anxiety disorder, unspecified; Z85.118 Personal history of other malignant neoplasm of bronchus and lung; Z87.891 Personal history of nicotine dependence
CPT/HCPCS: 64999; 80048; 83735; 85025; 85027; 86850; 86900; 86901; 88307; 94760

== ENCOUNTER 2024-10-25 14:39 | Inpatient (IN) | payer MEDICARE ==
--- NOTE | 2024-10-25 15:05 | ED ---
Abdominal Pain HPI - General Source: patient, RN notes reviewed Mode of arrival: ambulatory Limitations: no limitations <Carolina Goldman - Last Filed: 10/25/24 15:02> - General Source: patient, family, RN notes reviewed Mode of arrival: ambulatory Limitations: no limitations <Betina Cantor - Last Filed: 10/26/24 00:37> - General Chief Complaint: Nausea/Vomiting/Diarrhea Stated Complaint: NVD Time Seen by Provider: 10/25/24 15:00 - History of Present Illness Initial Comments: Quick Note: This is a 69-year-old female who presents to the emergency department for abdominal pain, nausea, and vomiting. States that it started when she woke up this morning. She has had bright red blood mixed in with her stool. Not taking any blood thinners. Denies any history of rectal bleeding. She had a sigmoid colon resection with Dr. Skaggs in August and states that she contacted his office and they advised she come here for evaluation. (Carolina Goldman) 69-year-old female presented the ER for evaluation of abdominal pain. Patient reports she underwent a sigmoid colectomy on 08-10-[address] Skaggs due to reoccurring diverticulitis. Patient states this morning she woke up and attempted to have a bowel movement. She states when having a bowel movement she noticed bright red blood mixed in with her stool. Patient states her stool was per normal. Patient also states that she was having severe abdominal cramping at that time causing her to feel nauseous and dizzy. No blood thinners. No history of GI bleeds. Patient denies any fevers, chills, urinary complaints. P atsai contacted Dr. Skaggs's office given these findings and was told to come to the ER for evaluation. Patient has no other complaints. Patient has not taken anything for pain at this time. (Betina Cantor) - Related Data Home Medications Medication Instructions Recorded Confirmed Fluticasone/Umeclidin/Vilanter 1 puff INHALATION RT-DAILY 05/14/24 10/25/24 [Trelegy Ellipta 200-62.5-25] Ascorbic Acid [Vitamin C] 1,000 mg PO DAILY 10/25/24 10/25/24 Calcium Carbonate [Calcium] 600 mg PO DAILY 10/25/24 10/25/24 Cholecalciferol (Vitamin D3) 50 mcg PO DAILY 10/25/24 10/25/24 [Vitamin D3 (50 Mcg = 2000 Iu)] Magnesium 200 mg PO HS 10/25/24 10/25/24 Allergies Allergy/AdvReac Type Severity Reaction Status Date / Time No Known Allergies Allergy Verified 10/25/24 19:42 Review of Systems ROS Other: All systems not noted in ROS Statement are negative. <Carolina Goldman - Last Filed: 10/25/24 15:02> ROS Other: All systems not noted in ROS Statement are negative. <Betina Cantor - Last Filed: 10/26/24 00:37> ROS Statement: Those systems with pertinent positive or pertinent negative responses have been documented in the HPI. Past Medical History Past Medical History: Cancer, COPD, Musculoskeletal Disorder, Osteoarthritis (OA ), Respiratory Disorder Additional Past Medical History / Comment(s): Right middle lobe lung cancer 2022(Surgery only); varicose veins, osteoporosis, diverticulitis History of Any Multi-Drug Resistant Organisms: None Reported Past Surgical History: Appendectomy, Section, Cholecystectomy, Hysterectomy, Joint Replacement, Orthopedic Surgery, Tonsillectomy Additional Past Surgical History / Comment(s): Partial hysterectomy- bilateral salpingectomy(no oophorectomy), chely hip replacements, left knee surg, right shoulder surgery, colonoscopy X3. Right middle lobe of the lung removed 2022. Past Anesthesia/Blood Transfusion Reactions: Previous Problems w/ Anesthesia Additional Past Anesthesia/Blood Transfusion Reaction / Comment(s): States BP dropped with hip replacement Smoking Status: Former smoker - Past Family History Mother Family Medical History: Cancer Additional Family Medical History / Comment(s): Breast and lung cancer. Mother's twin sister had breast cancer. <Carolina Goldman - Last Filed: 10/25/24 15:02> General Exam Head exam: Present: other <Carolina Goldman - Last Filed: 10/25/24 15:02> Limitations: no limitations General appearance: alert, in no apparent distress Respiratory exam: Present: normal lung sounds bilaterally. Absent: respiratory distress, wheezes, rales, rhonchi, stridor Cardiovascular Exam: Present: regular rate, normal rhythm, normal heart sounds. Absent: systolic murmur, diastolic murmur, rubs, gallop, clicks GI/Abdominal exam: Present: soft, tenderness (lower abdomen), hyperactive bowel sounds Rectal exam: Present: deferred (patient was in hallway) Extremities exam: Present: normal inspection, full ROM, normal capillary refill. Absent: tenderness, pedal edema, joint swelling, calf tenderness Neurological exam: Present: alert, oriented X3, CN II-XII intact Skin exam: Present: warm, dry, intact, normal color. Absent: rash <Betina Cantor - Last Filed: 10/26/24 00:37> - General Exam Comments Initial Comments: Visual Physical Exam Vital signs reviewed General: Well-appearing, nontoxic, no acute distress. Head: Normocephalic, atraumatic Eyes: PERRLA, EOMI ENT: Airway patent Chest: Nonlabored breathing Skin: No visual rash, normal skin tone Neuro: Alert and oriented 3 Musculoskeletal: No gross abnormalities (Carolina Goldman) Course <Betina Cantor - Last Filed: 10/26/24 00:37> Vital Signs 10/25/24 10/25/24 10/25/24 14:58 18:38 19:37 Temperature 98.2 F 98.6 F Pulse Rate 91 79 74 Respiratory 18 16 16 Rate Blood Pressure 127/75 156/76 137/70 O2 Sat by Pulse 98 97 98 Oximetry - Reevaluation(s) Reevaluation #1: 10/25/24 18:59 Case discussed with [facility], for admission. (Betina Cantor) Medical Decision Making <Carolina Goldman - Last Filed: 10/25/24 15:02> - Lab Data Result diagrams: 10/25/24 15:50 10/25/24 15:50 - Radiology Data Radiology results: report reviewed, image reviewed <Betina Cantor - Last Filed: 10/26/24 00:37> - Medical Decision Making I performed the QuickNote portion of this chart. Signed Carolina Goldman PA-C. (Carolina Goldman) Was pt. sent in by a medical professional or institution ([facility] Stone, MONEY ORDER CLERK, urgent care, hospital, or halfway...) When possible be specific @ -No Did you speak to anyone other than the patient for history (EMS, parent, family, police, friend...)? What history was obtained from this source @ -Patient's , at bedside, aiding in HPI and past medical history. Did you review nursing and triage notes (agree or disagree)? Why? @ -I reviewed and agree with nursing and triage notes Were old charts reviewed (outside hosp., previous admission, EMS record, old EKG , old radiological studies, urgent care reports/EKG's, halfway records)? Report findings @ -Chart review from 08-10-2024 patient underwent sigmoid colectomy for recurrent diverticulitis by Dr. Skaggs. Differential Diagnosis (chest pain, altered mental status, abdominal pain women, abdominal pain men, vaginal bleeding, weakness, fever, dyspnea, syncope, headache, dizziness, GI bleed, back pain, seizure, CVA, palpatations, mental health, musculoskeletal)? @ -Differential Abdominal Pain Women:Appendicitis, Cholecystitis, diverticulosis, ischemic bowel, pancreatitis, hepatitis, UTI, gastroenteritis, AAA, incarcerated hernia, bowel obstruction, constipation, inflammatory bowel, hepatitis, peptic ulcer disease, splenic infarction, perforated viscus, vulvitis, ovarian torsion, PID, kidney stone, placenta abruption, this is not meant to be an all-inclusive list EKG interpreted by me (3pts min.). @ -None done X-rays interpreted by me (1pt min.). @ -None done CT interpreted by me (1pt min.). @ -None done U/S interpreted by me (1pt. min.). @ -None done What testing was considered but not performed or refused? (CT, X-rays, U/S, labs)? Why? @ -Rectal exam deferred as patient was evaluated in the hallway. What meds were considered but not given or refused? Why? @ -None Did you discuss the management of the patient with other professionals (professionals i.e. Dr., PA, MONEY ORDER CLERK, lab, RT, psych nurse, nephrology social worker, day spa manager, teacher, infantry officer, egg caser)? Give summary @ -Yes, case discussed with [facility], Minh [facility], for admission. Was smoking cessation discussed for >3mins.? @ -No Was critical care preformed (if so, how long)? @ -No Were there social determinants of health that impacted care today? How? (Homelessness, low income, unemployed, alcoholism, drug addiction, transportation, low edu. Level, literacy, decrease access to med. care, nursing home, rehab)? @ -No Was there de-escalation of care discussed even if they declined (Discuss DNR or withdrawal of care, Hospice)? DNR status @ -No What co-morbidities impacted this encounter? (DM, HTN, Smoking, COPD, CAD, Canc er, CVA, ARF, Chemo, Hep., AIDS, mental health diagnosis, sleep apnea, morbid obesity)? @ -Recent colectomy. Was patient admitted / discharged? Hospital course, mention meds given and route, prescriptions, significant lab abnormalities, going to OR and other pertinent info. @ -Admitted. 69-year-old female presented to ER for evaluation of lower abdominal pain. Patient originally seen as a quick note. Upon rooming, history and physical exam completed. Vitals within acceptable limits. Laboratory studies obtained showed a leukocytosis 21.0 with a left shift. Patient does report she is on a prednisone taper for her knee. Lactic 1.2. CMP and urinalysis unimpressive. CT completed given recent surgical intervention and showing concerning signs of ileus. Patient given symptomatic control in the ER with IV fluids, Reglan and Tylenol. Admission considered and discussed with [facility], [facility], for further evaluation and treatment of ileus. General surgery on consult. Due to concern of leukocytosis patient started on Zosyn for infection prophylaxis. Blood cultures obtained. Patient agreeable for admission. Patient admitted in stable condition. Case discussed with ED attending by Dr. Coyne. Undiagnosed new problem with uncertain prognosis? @ -No Drug Therapy requiring intensive monitoring for toxicity (Heparin, Nitro, Insulin, Cardizem)? @ -No Were any procedures done? @ -No Diagnosis/symptom? @ -Ileus Acute, or Chronic, or Acute on Chronic? @ -Acute Uncomplicated (without systemic symptoms) or Complicated (systemic symptoms)? @ -Complicated Side effects of treatment? @ -No Exacerbation, Progression, or Severe Exacerbation? @ -No Poses a threat to life or bodily function? How? (Chest pain, USA, IA, pneumonia, PE, COPD, DKA, ARF, appy, cholecystitis, CVA, Diverticulitis, Homicidal, Suicidal, threat to staff... and all critical care pts) @ -Possibly (Betina Cantor) - Lab Data Lab Results 10/25/24 10/25/24 10/25/24 Range/Units 15:23 15:50 15:50 WBC 21.0 H (3.8-10.6) k/uL RBC 4.79 (3.80-5.40) m/uL Hgb 14.7 (11.4-16.0) gm/dL Hct 44.9 (34.0-46.0) % MCV 93.7 (80.0-100.0) fL MCH 30.8 (25.0-35.0) pg MCHC 32.8 (31.0-37.0) g/dL RDW 13.5 (11.5-15.5) % Plt Count 281 (150-450) k/uL MPV 6.9 Neutrophils % 94 % Lymphocytes % 4 % Monocytes % 2 % Eosinophils % 1 % Basophils % 0 % Neutrophils # 19.7 H (1.3-7.7) k/uL Lymphocytes # 0.7 L (1.0-4.8) k/uL Monocytes # 0.3 (0-1.0) k/uL Eosinophils # 0.2 (0-0.7) k/uL Basophils # 0.0 (0-0.2) k/uL Sodium 131 L (137-145) mmol/L Potassium 4.4 (3.5-5.1) mmol/L Chloride 97 L (98-107) mmol/L Carbon Dioxide 27 (22-30) mmol/L Anion Gap 7 mmol/L BUN 21 H (7-17) mg/dL Creatinine 0.60 (0.52-1.04) mg/dL Est GFR (CKD-EPI)AfAm >90 (>60 ml/min/1.73 sqM) Est GFR (CKD-EPI)NonAf >90 (>60 ml/min/1.73 sqM) Glucose 115 H (74-99) mg/dL Plasma Lactic Acid Guido (0.7-2.0) mmol/L Calcium 9.7 (8.4-10.2) mg/dL Magnesium 2.0 (1.6-2.3) mg/dL Total Bilirubin 0.6 (0.2-1.3) mg/dL AST 37 H (14-36) U/L ALT 20 (4-34) U/L Alkaline Phosphatase 80 (38-126) U/L Total Protein 6.7 (6.3-8.2) g/dL Albumin 4.3 (3.5-5.0) g/dL Amylase 166 H (30-110) U/L Lipase 111 (23-300) U/L Urine Color Yellow Urine Appearance Cloudy H (Clear) Urine pH 6.5 (5.0-8.0) Ur Specific [place] 1.021 (1.001-1.035) Urine Protein Negative (Negative) Urine Glucose (UA) Negative (Negative) Urine Ketones Negative (Negative) Urine Blood Negative (Negative) Urine Nitrite Negative (Negative) Urine Bilirubin Negative (Negative) Urine Urobilinogen <2.0 (<2.0) mg/dL Ur Leukocyte Esterase Negative (Negative) Urine RBC 1 (0-5) /hpf Urine WBC 3 (0-5) /hpf Ur Squamous Epith Cells <1 (0-4) /hpf Amorphous Sediment Rare H (None) /hpf Urine Mucus Rare H (None) /hpf 10/25/24 Range/Units 15:50 WBC (3.8-10.6) k/uL RBC (3.80-5.40) m/uL Hgb (11.4-16.0) gm/dL Hct (34.0-46.0) % MCV (80.0-100.0) fL MCH (25.0-35.0) pg MCHC (31.0-37.0) g/dL RDW (11.5-15.5) % Plt Count (150-450) k/uL MPV Neutrophils % % Lymphocytes % % Monocytes % % Eosinophils % % Basophils % % Neutrophils # (1.3-7.7) k/uL Lymphocytes # (1.0-4.8) k/uL Monocytes # (0-1.0) k/uL Eosinophils # (0-0.7) k/uL Basophils # (0-0.2) k/uL Sodium (137-145) mmol/L Potassium (3.5-5.1) mmol/L Chloride (98-107) mmol/L Carbon Dioxide (22-30) mmol/L Anion Gap mmol/L BUN (7-17) mg/dL Creatinine (0.52-1.04) mg/dL Est GFR (CKD-EPI)AfAm (>60 ml/min/1.73 sqM) Est GFR (CKD-EPI)NonAf (>60 ml/min/1.73 sqM) Glucose (74-99) mg/dL Plasma Lactic Acid [place] 1.2 (0.7-2.0) mmol/L Calcium (8.4-10.2) mg/dL Magnesium (1.6-2.3) mg/dL Total Bilirubin (0.2-1.3) mg/dL AST (14-36) U/L ALT (4-34) U/L Alkaline Phosphatase (38-126) U/L Total Protein (6.3-8.2) g/dL Albumin (3.5-5.0) g/dL Amylase (30-110) U/L Lipase (23-300) U/L Urine Color Urine Appearance (Clear) Urine pH (5.0-8.0) Ur Specific [place] (1.001-1.035) Urine Protein (Negative) Urine Glucose (UA) (Negative) Urine Ketones (Negative) Urine Blood (Negative) Urine Nitrite (Negative) Urine Bilirubin (Negative) Urine Urobilinogen (<2.0) mg/dL Ur Leukocyte Esterase (Negative) Urine RBC (0-5) /hpf Urine WBC (0-5) /hpf Ur Squamous Epith Cells (0-4) /hpf Amorphous Sediment (None) /hpf Urine Mucus (None) /hpf Disposition <Carolina Goldman - Last Filed: 10/25/24 15:02> Time of Disposition: 18:57 <Betina Cantor - Last Filed: 10/26/24 00:37> Clinical Impression: Ileus, Neutrophilic leukocytosis Disposition: ADMITTED IP TO THIS HOSP Condition: Stable
[2024-10-25 15:51] LABS: Amorphous Sediment,Urine Rare /hpf; Appearance,Urine Cloudy (Clear); Bilirubin,Urine Negative (Negative); Blood,Urine Negative (Negative); Color,Urine Yellow; Glucose,Urine (UA) Negative (Negative); Ketones,Urine Negative (Negative); Leukocyte Esterase,Urine Negative (Negative); Mucus,Urine Rare /hpf; Nitrite,Urine Negative (Negative); PH, Urine 6.5 (5.0-8.0); Protein,Urine Negative (Negative); RBC,Urine 1 /hpf (0-5); Specific Gravity,Urine 1.021 (1.001-1.035); Squamous Epithelial Cell,Urine <1 /hpf (0-4); Urobilinogen,Urine <2.0 mg/dL (<2.0); WBC,Urine 3 /hpf (0-5)
[2024-10-25 15:58] LABS: Basophils % (A) 0 %; Eosinophils # (A) 0.2 k/uL (0-0.7); Eosinophils % (A) 1 %; HCT 44.9 % (34.0-46.0); HGB 14.7 gm/dL (11.4-16.0); Lymphocytes # (A) 0.7 k/uL (1.0-4.8); Lymphocytes % (A) 4 %; MCH 30.8 pg (25.0-35.0); MCHC 32.8 g/dL (31.0-37.0); MCV 93.7 fL (80.0-100.0); Mean Platelet Volume 6.9; Monocytes # (A) 0.3 k/uL (0-1.0); Monocytes % (A) 2 %; Neutrophils # (A) 19.7 k/uL (1.3-7.7); Neutrophils % (A) 94 %; Platelet Count 281 k/uL (150-450); RBC 4.79 m/uL (3.80-5.40); RDW 13.5 % (11.5-15.5)
[2024-10-25 16:37] LABS: ALT 20 U/L (4-34); AST 37 U/L (14-36); African American GFR (CKD) >90 (>60 ml/min/1.73 sqM); Albumin 4.3 g/dL (3.5-5.0); Alkaline Phosphatase 80 U/L (38-126); Amylase 166 U/L (30-110); Anion Gap 7 mmol/L; Blood Urea Nitrogen 21 mg/dL (7-17); Calcium 9.7 mg/dL (8.4-10.2); Carbon Dioxide 27 mmol/L (22-30); Chloride 97 mmol/L (98-107); Glucose 115 mg/dL (74-99); Lipase 111 U/L (23-300); Non-African American GFR(CKD) >90 (>60 ml/min/1.73 sqM); Potassium 4.4 mmol/L (3.5-5.1); Sodium 131 mmol/L (137-145); Total Bilirubin 0.6 mg/dL (0.2-1.3); Total Protein 6.7 g/dL (6.3-8.2)
--- NOTE | 2024-10-25 18:30 | CT ---
EXAMINATION TYPE: CT angio abdomen pelvis DATE OF EXAM: 10/25/2024 5:41 PM COMPARISON: None. CLINICAL INDICATION: Female, 69 years old with history of Abdominal pain with rectal bleeding, diarrh ea, stomach cramps, shaking, bright red stool x today. Sigmoid Colon removed 08/10/24 TECHNIQUE: Axial images were obtained from above the diaphragm to the pubic rami in the axial plane a t 5 mm thick sections. Three-D reconstructed images through the aorta are performed on separate comp uter by the technologist. 2-D reconstructed images in the coronal and sagittal plane are reviewed. CONTRAST: 100 mL of Isovue 370. Study performed without Oral Contrast DLP: 1070.6 mGycm, Automated exposure control for dose reduction was used. FINDINGS: Limited CT sections are obtained the lung bases. The lung bases are clear. CT ABDOMEN: Liver: Normal Spleen: Normal Pancreas: Normal Adrenal glands: The adrenal glands are normal. Gallbladder: Surgically absent Kidneys: No masses are evident. No hydronephrosis is present. There is a 2 cm cyst on the lateral l eft kidney. Delayed images were obtained through the kidneys, which remain unremarkable. Aorta: Vascular calcification is within the aorta. Three-D reconstructed images are performed through the aorta. The aorta tapers normally to its visual ized course. Celiac axis and superior mesenteric artery take offs appear normal. Right left renal art nate origins appear normal. No aortic dissection or aneurysm is evident. Vascular calcifications withi n the common iliac vessels. Internal and external iliac vessels are patent. Common femoral veins were visualized are normal. Inferior vena cava: Normal. CT PELVIS: There is limitation on the lower pelvis due to bilateral hip prostheses. Fluid-filled small bowel loops are within the pelvis. These appear to have a normal caliber. Consider ileus within the differential. Air and debris is within the colon. Scattered diverticula are presen t within the colon. Appendix: Not identified. No dilated tubular structure or inflammatory changes are evident. Urinary bladder: Normal. Genitourinary structures: Uterus and ovaries are not identified. Osseous structures: No suspicious lytic or sclerotic lesions. IMPRESSION: 1. Clinical correlation recommended for ileus within the pelvis. 2. No suspicious aneurysmal dilatation or dissection of the aorta or pelvic structures. 3. Diverticulosis without acute diverticulitis. [facility], Workstation: [id number], 10/25/2024 6:28 PM
[2024-10-25] MEDS ORDERED: ACETAMINOPHEN TAB 325 MG TAB PO PRN (18:55)
[2024-10-25] MEDS ORDERED: NALOXONE 0.4 MG/ML 1 ML VIAL IV PRN (18:55)
[2024-10-25] MEDS: SODIUM CHLORIDE 0.9% 1,000 ML IV STA (19:10)
[2024-10-25] MEDS: ACETAMINOPHEN TAB 325 MG TAB PO STA (19:18)
[2024-10-25] MEDS: METOCLOPRAMIDE 5 MG/ML 2 ML VIAL IVP STA (19:19)
[2024-10-25] MEDS: PIPERACILLIN-TAZOBACTAM 3.375 GM in SODIUM CHLORIDE 0.9% 100 ML IVPB STA (19:29)
[2024-10-26] MEDS: HYDROmorphone 0.5 MG/0.5 ML SYRINGE IVP PRN (00:30)
[2024-10-26] MEDS: ONDANSETRON 4 MG/2 ML VIAL IVP PRN (04:27)
[2024-10-26 12:27] LABS: Basophils % (A) 0 %; Eosinophils # (A) 0.1 k/uL (0-0.7); Eosinophils % (A) 1 %; HCT 41.1 % (34.0-46.0); HGB 13.8 gm/dL (11.4-16.0); Lymphocytes # (A) 2.6 k/uL (1.0-4.8); Lymphocytes % (A) 20 %; MCH 31.5 pg (25.0-35.0); MCHC 33.6 g/dL (31.0-37.0); MCV 93.8 fL (80.0-100.0); Mean Platelet Volume 7.2; Monocytes # (A) 0.8 k/uL (0-1.0); Monocytes % (A) 6 %; Neutrophils # (A) 9.6 k/uL (1.3-7.7); Neutrophils % (A) 72 %; Platelet Count 256 k/uL (150-450); RBC 4.38 m/uL (3.80-5.40); RDW 13.9 % (11.5-15.5); WBC 13.3 k/uL (3.8-10.6)
--- NOTE | 2024-10-26 13:22 | P.HPIM ---
History of Present Illness Patient is a pleasant 69-year-old female came in with complaints of nausea vomiting abdominal pain in the lower quadrants moderate abdominal pain crampy in nature and was having complaining of blood in the stools patient had a CT of the abdomen which showed diverticulosis and also possible ileus patient had a sigmoid colectomy about 10 weeks ago. Patient's hemoglobin came down from 4.8- 13.7 no significant drop in hemoglobin patient had 1 episode of blood in the stools today moved her bowels today. Patient had leukocytosis with white count of 21,000 because of which patient was started on antibiotics although there is no evidence of diverticulitis I discontinued the antibiotics patient's white count has come down to 13,000. REVIEW OF SYSTEMS: All other systems are negative except those mentioned in the HPI PHYSICAL EXAMINATION: GENERAL: The patient is alert and oriented x3, not in any acute distress. Well developed, well nourished. HEENT: Pupils are round and equally reacting to light. EOMI. No scleral icterus. No conjunctival pallor. Normocephalic, atraumatic. No pharyngeal erythema. No thyromegaly. CARDIOVASCULAR: S1 and S2 present. No murmurs, rubs, or gallops. PULMONARY: Chest is clear to auscultation, no wheezing or crackles. ABDOMEN: Soft, nontender, nondistended, normoactive bowel sounds. No palpable organomegaly. MUSCULOSKELETAL: No joint swelling or deformity. EXTREMITIES: No cyanosis, clubbing, or pedal edema. NEUROLOGICAL: Gross neurological examination did not reveal any focal deficits. SKIN: No rashes. Assessment and plan -Lower GI bleed possibly secondary to diverticular bleed patient will be monitored overnight General Surgery is evaluating the patient -Ileus which appeared to have resolved clinically -Leukocytosis resolved reactive secondary to GI bleed no evidence of infection at this time we will discontinue the antibiotics -Hypovolemic hyponatremia patient will be started on normal saline at 75 cc/h -COPD without any acute exacerbation DVT prophylaxis: Early ambulation Past Medical History Past Medical History: Cancer, COPD, Musculoskeletal Disorder, Osteoarthritis (OA), Respiratory Disorder Additional Past Medical History / Comment(s): Right middle lobe lung cancer 2022(Surgery only); varicose veins, osteoporosis, diverticulitis History of Any Multi-Drug Resistant Organisms: None Reported Past Surgical History: Appendectomy, Section, Cholecystectomy, Hysterectomy, Joint Replacement, Orthopedic Surgery, Tonsillectomy Additional Past Surgical History / Comment(s): Partial hysterectomy- bilateral salpingectomy(no oophorectomy), chely hip replacements, left knee surg, right shoulder surgery, colonoscopy X3. Right middle lobe of the lung removed 2022. Past Anesthesia/Blood Transfusion Reactions: Previous Problems w/ Anesthesia Additional Past Anesthesia/Blood Transfusion Reaction / Comment(s): States BP dropped with hip replacement Smoking Status: Former smoker - Past Family History Mother Family Medical History: Cancer Additional Family Medical History / Comment(s): Breast and lung cancer. Mother's twin sister had breast cancer. Medications and Allergies Home Medications Medication Instructions Recorded Confirmed Type Fluticasone/Umeclidin/Vilanter 1 puff INHALATION RT-DAILY 05/14/24 10/25/24 History [Trelegy Ellipta 200-62.5-25] Ascorbic Acid [Vitamin C] 1,000 mg PO DAILY 10/25/24 10/25/24 History Calcium Carbonate [Calcium] 600 mg PO DAILY 10/25/24 10/25/24 History Cholecalciferol (Vitamin D3) 50 mcg PO DAILY 10/25/24 10/25/24 History [Vitamin D3 (50 Mcg = 2000 Iu)] Magnesium 200 mg PO HS 10/25/24 10/25/24 History Allergies Allergy/AdvReac Type Severity Reaction Status Date / Time No Known Allergies Allergy Verified 10/25/24 19:42 Physical Exam Vitals: Vital Signs Temp Pulse Pulse Resp BP BP Pulse Ox 10/26/24 07:00 98.2 F 64 17 126/70 98 10/26/24 00:15 98.2 F 64 16 136/70 96 10/25/24 20:54 98.0 F 73 16 151/83 98 10/25/24 19:37 98.6 F 74 16 137/70 98 10/25/24 18:38 79 16 156/76 97 10/25/24 14:58 98.2 F 91 18 127/75 98 Intake and Output 10/25/24 10/26/24 10/26/24 22:59 06:59 14:59 Other: # Voids 3 3 Results CBC & Chem 7: 10/26/24 11:51 10/25/24 15:50 Labs: Abnormal Lab Results - Last 24 Hours (Table) 10/25/24 10/25/24 10/25/24 Range/Units 15:23 15:50 15:50 WBC 21.0 H (3.8-10.6) k/uL Neutrophils # 19.7 H (1.3-7.7) k/uL Lymphocytes # 0.7 L (1.0-4.8) k/uL Sodium 131 L (137-145) mmol/L Chloride 97 L (98-107) mmol/L BUN 21 H (7-17) mg/dL Glucose 115 H (74-99) mg/dL AST 37 H (14-36) U/L Amylase 166 H (30-110) U/L Urine Appearance Cloudy H (Clear) Amorphous Sediment Rare H (None) /hpf Urine Mucus Rare H (None) /hpf 10/26/24 Range/Units 11:51 WBC 13.3 H (3.8-10.6) k/uL Neutrophils # 9.6 H (1.3-7.7) k/uL Lymphocytes # (1.0-4.8) k/uL Sodium (137-145) mmol/L Chloride (98-107) mmol/L BUN (7-17) mg/dL Glucose (74-99) mg/dL AST (14-36) U/L Amylase (30-110) U/L Urine Appearance (Clear) Amorphous Sediment (None) /hpf Urine Mucus (None) /hpf
--- NOTE | 2024-10-26 14:38 | P.GSCN ---
History of Present Illness Consult date: 10/26/24 History of present illness: CHIEF COMPLAINT: GI bleed HISTORY OF PRESENT ILLNESS: This is a 69-year-old female who presented the hospital with complaints of bloody diarrhea that started yesterday. Patient also reports having vomiting. There was no blood in the emesis. Patient did complain of some abdominal cramping and to feel very nauseous. She did have a bloody bowel movement last night and again this morning. Hemoglobin was 14.7. She did have a CT scan abdomen pelvis that reported possible ileus and evidence of diverticulosis. Patient does have a history of diverticulitis and had undergone a robotic sigmoid colectomy on August 2024. Her last colonoscopy was June 2024 that had reported diverticulosis. Patient denies any prior history of GI bleed. She denies being on any blood thinners. Patient reports that she was having looser stools prior to the GI bleed. She has continued to have flatus. PAST MEDICAL HISTORY: See below PAST SURGICAL HISTORY: See below MEDICATIONS: See below ALLERGIES: See below SOCIAL HISTORY: No illicit drug use. REVIEW OF SYSTEMS: CONSTITUTIONAL: Denies fever or chills. HEENT: Denies blurred vision, vision changes, or eye pain. Denies hemoptysis CARDIOVASCULAR: Denies chest pain or pressure. RESPIRATORY: No shortness of breath. GASTROINTESTINAL: See HPI for pertinent findings HEMATOLOGIC: Denies bleeding disorders. GENITOURINARY: Denies any blood in urine or increased urinary frequency. SKIN: Denies pruitis. Denies rash. PHYSICAL EXAM: VITAL SIGNS: Reviewed GENERAL: Well-developed in no acute distress. ABDOMEN: Soft. Nondistended. Tenderness with palpation to the right lower qu adrant and suprapubic area NEUROLOGIC: Alert and oriented. Cranial nerves II through XII grossly intact. LABORATORY DATA: WBC has 21 down to 13.3 Hgb 14.7-13.8 Sodium is 131 potassium is 4.4 creatinine 0.60 Lactic acid 1.2 IMAGING: CTA of the abdomen pelvis reports ileus. No suspicious aneurysmal dilation or dissection of the aorta or pelvic structures. Diverticulosis without acute diverticulitis. ASSESSMENT: 1. Acute GI bleed with bright red blood per rectum possibly due to a diverticu lar bleed 2. Ileus resolved PLAN: -Advance diet to clear liquids -Continue to monitor for any further signs or symptoms of bleeding -Continue to monitor hemoglobin Physician Deputy K 9 note has been reviewed by physician. Signing provider agrees with the documented findings, assessment, and plan of care. Past Medical History Past Medical History: Cancer, COPD, Musculoskeletal Disorder, Osteoarthritis (OA), Respiratory Disorder Additional Past Medical History / Comment(s): Right middle lobe lung cancer 2022(Surgery only); varicose veins, osteoporosis, diverticulitis History of Any Multi-Drug Resistant Organisms: None Reported Past Surgical History: Appendectomy, Section, Cholecystectomy, Hysterectomy, Joint Replacement, Orthopedic Surgery, Tonsillectomy Additional Past Surgical History / Comment(s): Partial hysterectomy- bilateral salpingectomy(no oophorectomy), chely hip replacements, left knee surg, right shoulder surgery, colonoscopy X3. Right middle lobe of the lung removed 2022. Past Anesthesia/Blood Transfusion Reactions: Previous Problems w/ Anesthesia Additional Past Anesthesia/Blood Transfusion Reaction / Comm: States BP dropped with hip replacement Smoking Status: Former smoker - Past Family History Mother Family Medical History: Cancer Additional Family Medical History / Comment(s): Breast and lung cancer. Mother's twin sister had breast cancer. Medications and Allergies Home Medications Medication Instructions Recorded Confirmed Type Fluticasone/Umeclidin/Vilanter 1 puff INHALATION RT-DAILY 05/14/24 10/25/24 History [Trelegy Ellipta 200-62.5-25] Ascorbic Acid [Vitamin C] 1,000 mg PO DAILY 10/25/24 10/25/24 History Calcium Carbonate [Calcium] 600 mg PO DAILY 10/25/24 10/25/24 History Cholecalciferol (Vitamin D3) 50 mcg PO DAILY 10/25/24 10/25/24 History [Vitamin D3 (50 Mcg = 2000 Iu)] Magnesium 200 mg PO HS 10/25/24 10/25/24 History Allergies Allergy/AdvReac Type Severity Reaction Status Date / Time No Known Allergies Allergy Verified 10/25/24 19:42 Surgical - Exam Osteopathic Statement: *. No significant issues noted on an osteopathic structural exam other than those noted in the History and Physical/Consult. Vital Signs Temp Pulse Resp BP Pulse Ox 98.2 F 91 18 127/75 98 10/25/24 14:58 10/25/24 14:58 10/25/24 14:58 10/25/24 14:58 02/17/25 14:58 Results - Labs 10/26/24 11:51 10/25/24 15:50 Abnormal Lab Results - Last 24 Hours (Table) 10/25/24 10/25/24 10/25/24 Range/Units 15:23 15:50 15:50 WBC 21.0 H (3.8-10.6) k/uL Neutrophils # 19.7 H (1.3-7.7) k/uL Lymphocytes # 0.7 L (1.0-4.8) k/uL Sodium 131 L (137-145) mmol/L Chloride 97 L (98-107) mmol/L BUN 21 H (7-17) mg/dL Glucose 115 H (74-99) mg/dL AST 37 H (14-36) U/L Amylase 166 H (30-110) U/L Urine Appearance Cloudy H (Clear) Amorphous Sediment Rare H (None) /hpf Urine Mucus Rare H (None) /hpf 10/26/24 Range/Units 11:51 WBC 13.3 H (3.8-10.6) k/uL Neutrophils # 9.6 H (1.3-7.7) k/uL Lymphocytes # (1.0-4.8) k/uL Sodium (137-145) mmol/L Chloride (98-107) mmol/L BUN (7-17) mg/dL Glucose (74-99) mg/dL AST (14-36) U/L Amylase (30-110) U/L Urine Appearance (Clear) Amorphous Sediment (None) /hpf Urine Mucus (None) /hpf Diabetes panel 10/25/24 Range/Units 15:50 Sodium 131 L (137-145) mmol/L Potassium 4.4 (3.5-5.1) mmol/L Chloride 97 L (98-107) mmol/L Carbon Dioxide 27 (22-30) mmol/L BUN 21 H (7-17) mg/dL Creatinine 0.60 (0.52-1.04) mg/dL Glucose 115 H (74-99) mg/dL Calcium 9.7 (8.4-10.2) mg/dL AST 37 H (14-36) U/L ALT 20 (4-34) U/L Alkaline Phosphatase 80 (38-126) U/L Total Protein 6.7 (6.3-8.2) g/dL Albumin 4.3 (3.5-5.0) g/dL Calcium panel 10/25/24 Range/Units 15:50 Calcium 9.7 (8.4-10.2) mg/dL Albumin 4.3 (3.5-5.0) g/dL Pituitary panel 10/25/24 Range/Units 15:50 Sodium 131 L (137-145) mmol/L Potassium 4.4 (3.5-5.1) mmol/L Chloride 97 L (98-107) mmol/L Carbon Dioxide 27 (22-30) mmol/L BUN 21 H (7-17) mg/dL Creatinine 0.60 (0.52-1.04) mg/dL Glucose 115 H (74-99) mg/dL Calcium 9.7 (8.4-10.2) mg/dL Adrenal panel 10/25/24 Range/Units 15:50 Sodium 131 L (137-145) mmol/L Potassium 4.4 (3.5-5.1) mmol/L Chloride 97 L (98-107) mmol/L Carbon Dioxide 27 (22-30) mmol/L BUN 21 H (7-17) mg/dL Creatinine 0.60 (0.52-1.04) mg/dL Glucose 115 H (74-99) mg/dL Calcium 9.7 (8.4-10.2) mg/dL Total Bilirubin 0.6 (0.2-1.3) mg/dL AST 37 H (14-36) U/L ALT 20 (4-34) U/L Alkaline Phosphatase 80 (38-126) U/L Total Protein 6.7 (6.3-8.2) g/dL Albumin 4.3 (3.5-5.0) g/dL Assessment and Plan Assessment: 69 yo female w/ gastroenteritis and associated GI bleed -decreased bleeding and fewer bowel movements -feeling better -advanced to regular diet Time with Patient: Less than 30
[2024-10-26] MEDS: SODIUM CHLORIDE 0.9% 1,000 ML IV SCH (14:49)
[2024-10-26] MEDS: HYDROcodone/APAP 7.5-325MG 1 EACH TAB PO PRN (20:40)
[2024-10-26] MEDS: SYMBICORT 160-4.5 MCG INHALER INHALATION SCH (21:37)
--- NOTE | 2024-10-27 06:12 | P.PN ---
Subjective patient seen and evaluated bedside. She is doing very well denies having bowel movements minimal abdominal pain Objective - Vital Signs Vital signs: Vital Signs Temp 98.0 F 10/27/24 02:00 Pulse 69 10/27/24 02:00 Resp 14 10/27/24 02:00 BP 116/61 10/27/24 02:00 Pulse Ox 96 10/27/24 02:00 FiO2 Intake & Output 10/26/24 10/26/24 10/27/24 06:59 18:59 06:59 Intake Total 900 500 Balance 900 500 Weight 63.957 kg Intake: Intake, IV Titration 900 Amount Sodium Chloride 0.9% 1, 900 000 ml @ 75 mls/hr IV . [id number] BERNICE Rx#:[id number] Oral 500 Other: # Voids 3 2 2 # Bowel Movements 1 - Exam general no acute distress Cardiovascular regular rate and rhythm Pulmonary nonlabored breathing Abdomen is soft minimal tender non distended no guarding rebound tenderness - Labs CBC & Chem 7: 10/26/24 11:51 10/25/24 15:50 Labs: Abnormal Lab Results - Last 24 Hours (Table) 10/26/24 Range/Units 11:51 WBC 13.3 H (3.8-10.6) k/uL Neutrophils # 9.6 H (1.3-7.7) k/uL Microbiology - Last 24 Hours (Table) 10/25/24 19:33 Blood Culture - Preliminary Blood Assessment and Plan Assessment: 69-year-old female with gastroenteritis and associated GI bleed Patient tolerated clear liquid diet okay for regular diet this morning if tolerating she is stable for discharge Time with Patient: Less than 30
[2024-10-27 07:38] LABS: Basophils % (A) 0 %; Eosinophils # (A) 0.2 k/uL (0-0.7); Eosinophils % (A) 2 %; HCT 43.3 % (34.0-46.0); HGB 14.2 gm/dL (11.4-16.0); Lymphocytes # (A) 2.5 k/uL (1.0-4.8); Lymphocytes % (A) 20 %; MCH 31.2 pg (25.0-35.0); MCHC 32.9 g/dL (31.0-37.0); MCV 94.7 fL (80.0-100.0); Mean Platelet Volume 7.2; Monocytes # (A) 0.7 k/uL (0-1.0); Monocytes % (A) 5 %; Neutrophils # (A) 9.1 k/uL (1.3-7.7); Neutrophils % (A) 72 %; Platelet Count 244 k/uL (150-450); RBC 4.57 m/uL (3.80-5.40); RDW 13.9 % (11.5-15.5); WBC 12.6 k/uL (3.8-10.6)
[2024-10-27 07:59] LABS: African American GFR (CKD) >90 (>60 ml/min/1.73 sqM); Anion Gap 7 mmol/L; Blood Urea Nitrogen 9 mg/dL (7-17); Calcium 8.6 mg/dL (8.4-10.2); Carbon Dioxide 27 mmol/L (22-30); Chloride 101 mmol/L (98-107); Glucose 82 mg/dL (74-99); Magnesium 2.1 mg/dL (1.6-2.3); Non-African American GFR(CKD) 89 (>60 ml/min/1.73 sqM); Potassium 4.3 mmol/L (3.5-5.1); Sodium 135 mmol/L (137-145)
[2024-10-27 08:30] VITALS: BP 114/64; PULSE 79; RESP 17; TEMP 97.9
[2024-10-27] MEDS: TIOTROPIUM 2.5 MCG INHALER INHALATION SCH (08:35)
--- NOTE | 2024-10-30 21:14 | P.DS ---
Providers Date of admission: 10/25/24 18:50 Attending physician: Ric Montalvo Consults: 10/25/24 18:55 Consult Physician Urgent Consulting Provider: Donte Skaggs Consult Reason/Comments: ileus Do you want consulting provider notified?: Yes Primary care physician: Pema Salguero Hospital Course: Final Diagnosis -Lower GI bleed possibly secondary to diverticular bleed patient will be monitored overnight General Surgery is evaluating the patient -Ileus which appeared to have resolved clinically -Leukocytosis resolved reactive secondary to GI bleed no evidence of infection at this time we will discontinue the antibiotics -Hypovolemic hyponatremia patient will be started on normal saline at 75 cc/h -COPD without any acute exacerbation Discharge Disposition Patient is stable for discharge home. Continue same home medications. Follow up with Dr Rhodes in 1 week. Follow up with PCP Dr. Pema Salguero in 1 to 2 days. Repeat CBC to monitor hemoglobin. Hospital Course Patient is a pleasant 69-year-old female came in with complaints of nausea vomiting abdominal pain in the lower quadrants moderate abdominal pain crampy in nature and was having complaining of blood in the stools patient had a CT of the abdomen which showed diverticulosis and also possible ileus patient had a sigmoid colectomy about 10 weeks ago. Patient's hemoglobin came down from 4.8- 13.7 no significant drop in hemoglobin patient had 1 episode of blood in the stools today moved her bowels. Patient had leukocytosis with white count of 21,000 because of which patient was started on antibiotics although there is no evidence of diverticulitis I discontinued the antibiotics patient's white count has come down to 13,000. General surgery recommending increased diet and if tolerating can DC home today. Patient did have some worsening abdominal pain after breakfast but did have a bowel movement and had some blood on the tissue when wiping likely hemorrhoidal bleeding. After BM did tolerate regular food and no abdominal pain or tenderness on examination. She would like to discharge home. Please see medication reconciliation for a list of current medications. Thank you for allowing us to participate in the care of this patient. The impression and plan of care has been dictated by Alta Sheridan, Nurse Practitioner as directed. Dr. Robert MD I have performed a history and physical examination and medical decision making of this patient, discussed the same with the dictator, and agree with the dictators assessment and plan as written, documented as a scribe. Based on total visit time, I have performed more than 50% of this visit. Patient Condition at Discharge: Stable Plan - Discharge Summary Discharge Rx Participant: No New Discharge Prescriptions: Continue Fluticasone/Umeclidin/Vilanter [Trelegy Ellipta 200-62.5-25] 1 puff INHALATION RT-DAILY Cholecalciferol (Vitamin D3) [Vitamin D3 (50 Mcg = 2000 Iu)] 50 mcg PO DAILY Calcium Carbonate [Calcium] 600 mg PO DAILY Ascorbic Acid [Vitamin C] 1,000 mg PO DAILY Magnesium 200 mg PO HS Discharge Medication List Fluticasone/Umeclidin/Vilanter [Trelegy Ellipta 200-62.5-25] 1 puff INHALATION RT-DAILY 05/14/24 [History] Ascorbic Acid [Vitamin C] 1,000 mg PO DAILY 10/25/24 [History] Calcium Carbonate [Calcium] 600 mg PO DAILY 10/25/24 [History] Cholecalciferol (Vitamin D3) [Vitamin D3 (50 Mcg = 2000 Iu)] 50 mcg PO DAILY 10/25/24 [History] Magnesium 200 mg PO HS 10/25/24 [History] Follow up Appointment(s)/Referral(s): Woody Rhodes DO [Doctor of Osteopathic Medicine] - 1 Week (Please call office for appointment.) Pema Salguero DO [Primary Care Provider] - 1-2 days Ambulatory/Diagnostic Orders: Complete Blood Count w/diff [LAB.AMB] Time Frame: 3 Days, Location: None Selected Patient Instructions/Handouts: Leukocytosis (DC), Ileus (DC) Activity/Diet/Wound Care/Special Instructions: Diet as tolerated Return to ER or notify surgeon/PCP if continued rectal bleeding. Repeat CBC in 2 to 3 days Discharge Disposition: HOME SELF-CARE
== END 2024-10-27 15:10 | disposition home or self-care (01) | DRG 378 ==
LOC: EC 14:39 → 1SOBS 18:50
PROVIDERS: ADMIT Hospitalist; ATTEND Hospitalist
DX: K57.31 Diverticulosis of large intestine without perforation or abscess with bleeding (principal); E87.1 Hypo-osmolality and hyponatremia; K56.7 Ileus, unspecified; J44.9 Chronic obstructive pulmonary disease, unspecified; K52.9 Noninfective gastroenteritis and colitis, unspecified; I83.90 Asymptomatic varicose veins of unspecified lower extremity; E86.1 Hypovolemia; M81.0 Age-related osteoporosis without current pathological fracture; Z85.118 Personal history of other malignant neoplasm of bronchus and lung; Z87.891 Personal history of nicotine dependence; Z90.2 Acquired absence of lung [part of]; Z90.711 Acquired absence of uterus with remaining cervical stump; Z96.649 Presence of unspecified artificial hip joint; Z90.49 Acquired absence of other specified parts of digestive tract; Z90.710 Acquired absence of both cervix and uterus
CPT/HCPCS: 36415; 74174; 80048; 80053; 81001; 82150; 83605; 83690; 83735; 85025; 87040; 93005; 96374; 99285

== ENCOUNTER → 2024-11-01 | Outpatient (CLI) | payer MEDICARE ==
--- NOTE | 2024-11-01 15:20 | MM ---
Reason for Exam: Screening (asymptomatic). Last mammogram was performed 1 year(s) and 3 month(s) ago. Patient History: Menarche at age 11. First Full-Term at age 28. Late child-bearing (after 28). Hysterectomy at age 38. Postmenopausal. 09/15/1997, Benign Stereotactic Core Biopsy on the left side. Benign Core Biopsy. Maternal aunt had breast cancer. Mother had breast cancer. Risk Values: Jeanie 5 year model risk: 5.3%. NCI Lifetime model risk: 14.0%. Prior Study Comparison: 05/08/2021 Bilateral Screening Mammogram, MERGED WITH [facility]. 06/18/2022 Bilateral MG screening mammo w CAD, MERGED WITH [facility]. 07/22/2023 Bilateral MG 3D screening mammo w/cad, MERGED WITH [facility]. Tissue Density: There are scattered areas of fibroglandular density. Findings: Analyzed By CAD. Right breast: There is no suspicious group of microcalcifications or new suspicious mass. Left breast: There is no suspicious group of microcalcifications or new suspicious mass. Overall Assessment: Negative, BI-RAD 1 Management: Screening Mammogram of both breasts in [address] [facility] will attempt to contact patient to return for supplemental views and ultrasound if indicated. Patient should continue monthly self-breast exams. A clinical breast exam by your physician is recommended on an annual basis. This exam should not preclude additional follow-up of suspicious palpable abnormalities. Note on Jeanie scores and lifetime risk: 1. A Jeanie score greater than 3% is considered moderate risk. If this is the case, consider specialist referral to assess eligibility for a risk reducing agent. 2. If overall lifetime risk for the development of breast cancer is 20% or higher, the patient may qualify for future screening with alternating mammogram and breast MRI. [facility], , 11/01/2024 3:16 PM. Electronically signed and approved by: Sameer Guerrero DO
== END | disposition home or self-care (01) ==
LOC: RADMAMWWP 14:41
PROVIDERS: ATTEND Family Medicine
DX: Z12.31 Encounter for screening mammogram for malignant neoplasm of breast (principal); R92.323 Mammographic fibroglandular density, bilateral breasts; Z78.0 Asymptomatic menopausal state; Z80.3 Family history of malignant neoplasm of breast
CPT/HCPCS: 77063; 77067

== ENCOUNTER → 2024-11-04 | Outpatient (CLI) | payer MEDICARE ==
--- NOTE | 2024-11-04 15:34 | BD ---
EXAMINATION TYPE: Axial Bone Density DATE OF EXAM: 11/04/2024 CLINICAL HISTORY: 69 years old Female. ICD-10 CODE: S32.82XA MULTIPLE FX OF PELVIS W , Additional H istory: Height: 65 Weight: 142 FRAX RISK QUESTIONS: Family History (Parent hip fracture): no History of Fracture in Adulthood: yes Secondary Osteoporosis: no RISK FACTORS HISTORY OF: Surgery to Hip(right/left): yes When: MEDICATIONS: Thyroid Medications: no Osteoporosis Medications: no EXAM MEASUREMENTS: Bone mineral densitometry was performed using the [employer] System. Bone mineral density as measured about the Lumbar spine is: ----- L1-L4(G/cm2): 1.303 T Score Values are as follows: ----- L1: 0.8 ----- L2: -0.6 ----- L3: 1.1 ----- L4: 2.3 ----- L1-L4: 1.0 Z Score Values are as follows: ----- L1: 2.5 ----- L2: 1.1 ----- L3: 2.8 ----- L4: 4.0 ----- L1-L4: 2.7 Bone mineral density has: Decreased -8.8% since study of: 06/18/2022 Bone mineral density about the L Wrist (g/cm2): 0.310 T Score values are as follows: -----Dist. R+U: -5.1 -----Prox. R+U: -5.0 -----Radius total: -6.0 Z Score values are as follows: -----Dist. R+U: -3.2 -----Prox. R+U: -3.1 -----Radius total: -4.1 Bone mineral density has: Decreased -15.3% since study of: 06/18/2022 FRAX%s: none IMPRESSION: Osteoporosis (T Score less than -2.5). There is increased fracture risk and therapy is usually indicated based on age. Re-Screen 1-2 years. NOTE: T-SCORE=SD OF THE YOUNG ADULT MEAN. [facility], , 11/04/2024 3:32 PM
== END | disposition home or self-care (01) ==
LOC: RADBDWWP 14:05
PROVIDERS: ATTEND Family Medicine
DX: S32.82XA Multiple fractures of pelvis without disruption of pelvic ring, initial encounter for closed fracture (principal); M81.0 Age-related osteoporosis without current pathological fracture
CPT/HCPCS: 77080

== ENCOUNTER → 2025-02-22 | Outpatient (CLI) | payer MEDICARE ==
[2025-02-22 09:48] LABS: African American GFR (CKD) >90 (>60 ml/min/1.73 sqM); Blood Urea Nitrogen 16 mg/dL (7-17); Non-African American GFR(CKD) >90 (>60 ml/min/1.73 sqM)
--- NOTE | 2025-02-22 10:37 | CT ---
EXAMINATION TYPE: CT chest w con DATE OF EXAM: 02/22/2025 10:08 AM COMPARISON: 03/02/2024 CLINICAL INDICATION: Female, 69 years old with history of R91.1 SOLITARY PULMONARY NODULE; [facility], pt hx of cancer and had lobe removed 2022 TECHNIQUE: Multiple axial images were obtained through the chest. Sagittal and coronal reformats were created for review. MIP was performed on a separate workstation. Contrast used:100 ml mL of Isovue 300 with IV Contrast (None if empty) Oral contrast used: (None if empty) CT DLP: 206.6 mGycm, Automated exposure control for dose reduction was used. FINDINGS: LUNGS/ PLEURA: Moderate centrilobular emphysema. Postsurgical changes to the right lung. No wall thic kening or nodules. No focal consolidation, pneumothorax or pleural effusion. AIRWAY: Patent and unremarkable. HEART: Size within normal limits. No significant coronary artery calcifications. MEDIASTINUM: No gross evidence of adenopathy. VASCULATURE: No aortic aneurysm. No evidence for centrally pulmonary embolus. No evidence for dissec tion. MUSCULOSKELETAL: Severe disc degeneration changes are present throughout the thoracolumbar spine seco ndary to osteophyte formation , Schmorl's nodes, disc space narrowing, and facet joint arthropathy. SOFT TISSUES/LYMPH NODES: Unremarkable. LOWER NECK: No significant findings. UPPER ABDOMEN: Simple appearing left renal cortical 19 mm cyst on follow-up recommended. The gallblad larry is surgically absent. IMPRESSION: 1. Postsurgical changes right lung with lobectomy. No evidence for lymphadenopathy or mass. No evide nce for active malignancy. 2. Moderate emphysema. 3. No evidence for dissection or occlusion. No evidence for central pulmonary embolus. [facility], , 02/22/2025 10:35 AM
== END | disposition home or self-care (01) ==
LOC: RADCTMAIN 09:16
PROVIDERS: ATTEND Internal Medicine Critical Care Medicine
DX: J43.2 Centrilobular emphysema (principal); R91.1 Solitary pulmonary nodule; Z98.890 Other specified postprocedural states
CPT/HCPCS: 82565; 84520; 71260; 36415; Q9967